=== PATIENT | female | born 1940 | race Caucasian/White ===

== ENCOUNTER → 2017-11-22 11:53 | Outpatient (CLI) | payer MEDICARE, OTHER, SELFPAY ==
--- NOTE | 2017-11-22 | DI.MG.S_ITS ---
BILATERAL DIGITAL SCREENING MAMMOGRAM 3D/2D WITH CAD: 11/22/2017 CLINICAL: Routine screening. Comparison is made to exams dated: 11/20/2016 mammogram, 11/19/2015 mammogram, and 11/05/2014 mammogram - [facility]. There are scattered fibroglandular elements in both breasts. Current study was also evaluated with a Computer Aided Detection (CAD) system. No significant masses, calcifications, or other findings are seen in either breast. There has been no significant interval change. IMPRESSION: NEGATIVE There is no mammographic evidence of malignancy. A 1 year screening mammogram is recommended. This exam was interpreted at Station ID: [id number]. NOTE: For mammograms, a report in lay terms will be sent to the patient. Approximately 15% of breast malignancies will not be visualized mammographically. In the management of a palpable breast mass, a negative mammogram must not discourage biopsy of a clinically suspicious lesion. Electronically Signed By: Kevin christie/penkatiana:11/23/2017 02:43:53 letter sent: Normal Exam ACR BI-RADS Category 1: Negative 3341F
== END ==
PROVIDERS: Family Provider Family Medicine; PCP Family Medicine; Visit Provider Family Medicine
DX: Z12.31 Encounter for screening mammogram for malignant neoplasm of breast (principal)
CPT/HCPCS: 77063; 77067

== ENCOUNTER → 2018-08-12 13:53 | Outpatient (CLI) | payer MEDICARE, OTHER, SELFPAY ==
[2018-08-12 16:27] LABS: Blood Urea Nitrogen 19 mg/dL (7-17); Calcium 9.6 mg/dL (8.4-10.2); Carbon Dioxide 29 mmol/L (22-32); Chloride 103 mmol/L (98-107); Estimated Glomerular Filt Rate 53.6 mL/min (>60); Glucose 108 mg/dL (80-110); HEMOLYSIS < 15 (0-50); Potassium 5.4 mmol/L (3.4-5.1); Sodium 139 mmol/L (137-145)
[2018-08-12 16:31] LABS: Creatinine Urine Random 74.9 mg/dL
[2018-08-12 16:36] LABS: Microalbumin Urine Random < 0.6 mg/dL (0-1.6)
== END ==
PROVIDERS: PCP Family Medicine; Visit Provider Family Medicine
DX: I10 Essential (primary) hypertension (principal)
CPT/HCPCS: 36415; 80048; 82043; 82570

== ENCOUNTER → 2018-10-21 12:13 | Outpatient (CLI) | payer MEDICARE, OTHER, SELFPAY ==
[2018-10-21 12:48] LABS: Hemoglobin A1C% w Est Avg Glu 5.6 % (4.0-6.0)
== END ==
PROVIDERS: PCP Family Medicine; Visit Provider Family Medicine
DX: Z13.1 Encounter for screening for diabetes mellitus (principal)
CPT/HCPCS: 36415; 83036

== ENCOUNTER → 2018-11-18 13:04 | Outpatient (CLI) | payer MEDICARE, OTHER, SELFPAY | PROVIDERS: PCP Family Medicine; Visit Provider Family Medicine | DX: M85.852 Other specified disorders of bone density and structure, left thigh (principal); Z78.0 Asymptomatic menopausal state; I34.0 Nonrheumatic mitral (valve) insufficiency | CPT/HCPCS: 77080 ==

== ENCOUNTER → 2018-11-25 13:23 | Outpatient (CLI) | payer MEDICARE, OTHER, SELFPAY ==
--- NOTE | 2018-11-25 | DI.MG.S_ITS ---
BILATERAL DIGITAL SCREENING MAMMOGRAM 3D/2D WITH CAD: 11/25/2018 CLINICAL: Routine screening. Comparison is made to exams dated: 11/22/2017 mammogram, 11/20/2016 mammogram, and 11/19/2015 mammogram - [facility]. There are scattered fibroglandular elements in both breasts. Current study was also evaluated with a Computer Aided Detection (CAD) system. No significant masses, calcifications, or other findings are seen in either breast. There has been no significant interval change. IMPRESSION: NEGATIVE There is no mammographic evidence of malignancy. A 1 year screening mammogram is recommended. This exam was interpreted at Station ID: [id number]. NOTE: For mammograms, a report in lay terms will be sent to the patient. Approximately 15% of breast malignancies will not be visualized mammographically. In the management of a palpable breast mass, a negative mammogram must not discourage biopsy of a clinically suspicious lesion. Electronically Signed By: Ramón hagen/ronak:11/26/2018 07:49:45 letter sent: Normal Exam ACR BI-RADS Category 1: Negative 3341F
== END ==
PROVIDERS: PCP Family Medicine; Visit Provider Family Medicine
DX: Z12.31 Encounter for screening mammogram for malignant neoplasm of breast (principal)
CPT/HCPCS: 77063; 77067

== ENCOUNTER → 2018-12-12 09:10 | Outpatient (CLI) | payer MEDICARE, OTHER, SELFPAY ==
--- NOTE | 2018-12-12 | DI.MRI.S_ITS ---
PROCEDURE: MR LUMBAR SPINE WO CON INDICATIONS: Lumbago with sciatica TECHNIQUE: Noncontrast sagittal T1 spin echo and T2 fast echo, sagittal STIR, axial T1 and T2 fast spin echo through the lumbar spine. In cases with scoliosis, additional coronal T2 fast spin echo may be performed. COMPARISON: [facility], , L-SPINE WITHOUT CONTRAST, 04/28/2008, 12:45. FINDINGS: Image quality: Excellent. Alignment and Curvature: Dextroscoliosis. Grade 1 anterolisthesis of L4 on L5. Bone Marrow: No acute fracture. Multilevel degenerative endplate sclerosis and spurring. Diffuse facet arthropathy. Spinal Cord: Conus medullaris terminates at the L1-L2 level. Visualized cord demonstrates normal signal and size. Paraspinous Soft Tissues: Presumed T2 hyperintense left renal cyst L1-L2: No central canal narrowing. Lateral recess appear grossly patent. Moderate left foraminal narrowing. Mild right foraminal narrowing, with no interval change. L2-L3: This is canal narrowing. Lateral recesses appear patent. Mild right and left foraminal narrowing, no interval change L3-L4: No central canal stenosis. Partial effacement of both lateral recesses with bilaterally symmetric appearance. Severe left foraminal stenosis with nerve root compression, which appears progressed since prior study. Mild right foraminal narrowing, unchanged L4-L5: Moderate central canal narrowing. Partial effacement of both lateral recesses with asymmetric appearance, right greater than left. Severe right foraminal stenosis. Moderate left foraminal stenosis with nerve root compression on both sides. This appears progressed on both sides since prior study L5-S1: No central canal narrowing. Lateral recesses appear patent. Mild left foraminal narrowing. Severe right foraminal stenosis with nerve root compression, slightly progressed since prior study IMPRESSION: Multilevel lumbar spondylosis and facet arthropathy which has progressed since prior study as above. Moderate L4-L5 canal narrowing and asymmetric right greater than left subarticular stenoses. Severe right L4-L5 and moderate L4-L5 foraminal narrowing, increased since prior study. Severe right L5-S1 foraminal stenosis. Severe left L3-L4 foraminal stenosis. Dextroscoliosis. Dictated by: Vinny Gomez M.D. on 12/12/2018 at 13:40 Approved by: Vinny Gomez M.D. on 12/12/2018 at 13:48
--- NOTE | 2018-12-12 09:18 | DI.ECHO.S_ITS ---
[facility]+ [facility] +---------+ : : [address] : : : : [id number] : : : : Phone: [phone]+ Echocardiogram Report + + :Name: FABIENNE CURTIS Study Date: 12/12/2018 Height: 67 in : :[facility] Exam Location: IS Weight: 155 lb : : Gender: Female BSA: 1.8 m2 : :: 1940 Age: 78 yrs BP: 154/88 mmHg: :Reason For Study: MR : : Performed By: Yusef Galarza : :Referring: MONSERRAT GUTIERREZ : + + Interpretation Summary There is trace mitral regurgitation. The left ventricle is normal in size. There is normal left ventricular wall thickness. There are no focal wall motion abnormalities. Diastolic parameters suggest a relaxation abnormality of the left ventricle, consistent with probable normal filling pressures. The right ventricle is normal in size and function. The right ventricular systolic pressure is estimated to be at least 38 mmHg based on an estimated right atrial pressure of 3 mm Hg. Compared to the prior echocardiogram mitral regurgitation has improved and is only trivial. Procedure: A two-dimensional transthoracic echocardiogram with color flow and Doppler was performed. The study quality was technically adequate. Comparison is made with the echocardiogram of 02/14/16. The patient was in normal sinus rhythm during the exam. Left Ventricle: The left ventricle is normal in size. There is normal left ventricular wall thickness. The ejection fraction is estimated to be 60-65%. The left ventricular ejection fraction is normal. There are no focal wall motion abnormalities. Diastolic parameters suggest a relaxation abnormality of the left ventricle, consistent with probable normal filling pressures. Right Ventricle: The right ventricle is normal in size and function. Atria: The left atrium is mildly dilated. Right atrial size is normal. There is no Doppler evidence for an interatrial shunt. Mitral Valve: The mitral valve is normal in structure and function. There is trace mitral regurgitation. Aortic Valve: The aortic valve is trileaflet. The aortic valve opens well. There is trace aortic regurgitation. Tricuspid Valve: The tricuspid valve is normal in structure and function. There is trace tricuspid regurgitation. The right ventricular systolic pressure is estimated to be at least 38 mmHg based on an estimated right atrial pressure of 3 mm Hg. Pulmonic Valve: The pulmonic valve is normal in structure and function. There is trace pulmonic regurgitation. Great Vessels: The aortic root is normal size. The dimensions of the ascending aorta are normal. The pulmonary artery is normal size. The IVC is of normal diameter and collapses greater than 50% with a sniff. This suggests a low right atrial pressure of 3 mm Hg. Pericardium/ Pleura There is no pericardial effusion. There is no pleural effusion. MMode/2D Measurements & Calculations LVIDd: 3.9 cm LVOT diam: 2.0 cm LVIDs: 2.5 cm Ao root diam: 3.2 cm FS: 36.7 % Aortic Jxn: 2.6 cm EPSS: 0.63 cm asc Aorta Diam: 3.3 cm IVSd: 0.84 cm Ao Arch Diam (Prox Trans): 2.6 cm LVPWd: 0.75 cm LV vilchis. diameter/BSA (cm/m^2): 2.1 LV sys. diameter/BSA (cm/m^2): 1.4 LA dimension: 2.9 cm RA long axis: 5.0 cm LA A2 area: 22.8 cm2 RA area: 17.2 cm2 LA A4 area: 20.8 cm2 RA vol: 50.5 ml LA length (vol): 6.0 cm RA : 27.8 ml/m2 LA vol: 66.8 ml IVC diam: 1.1 cm LA vol index: 36.8 ml/m2 RVD1 (basal): 3.6 cm RVD2 (mid): 3.5 cm Doppler Measurements & Calculations Ao V2 max: 161.8 cm/sec LVOT Max Leeroy: 121.2 cm/sec Ao V2 mean: 114.4 cm/sec LV V1 max P.9 mmHg Ao max P.5 mmHg LV V1 VTI: 28.6 cm Ao mean P.7 mmHg SWATI(I,D): 2.4 cm2 Ao V2 VTI: 38.1 cm SWATI(V,D): 2.4 cm2 sev ratio: 0.75 SWATI indexed to BSA (cm^2/m^2): 1.3 MV E max leeroy: 77.6 cm/sec TR max leeroy: 295.3 cm/sec MV A max leeroy: 110.1 cm/sec TR max P.9 mmHg MV E/A: 0.70 PA V2 max: 93.7 cm/sec Med Peak E' Leeroy: 4.7 cm/sec PA V2 mean: 64.9 cm/sec E/E' med: 16.3 PA mean P.9 mmHg Lat Peak E' Leeroy: 9.2 cm/sec PA pr(Accel): 31.6 mmHg E/E' lat: 8.5 PA Accel Time: 0.09 sec E/e' average: 12.4 MV dec time: 0.20 sec SV(LVOT): 91.0 ml Electronically signed by: Ag Chowdary M.D. on Reading Physician:12/12/2018 06:07 PM
== END ==
PROVIDERS: Family Provider Physical Medicine & Rehabilitation Pain Medicine; PCP Family Medicine; Visit Provider Family Medicine
DX: I34.0 Nonrheumatic mitral (valve) insufficiency (principal); M54.5 Low back pain; M47.26 Other spondylosis with radiculopathy, lumbar region; M48.061 Spinal stenosis, lumbar region without neurogenic claudication; M41.9 Scoliosis, unspecified
CPT/HCPCS: 72148; 93306

== ENCOUNTER → 2019-11-19 09:15 | Outpatient (CLI) | payer MEDICARE, OTHER, SELFPAY ==
[2019-11-19 10:46] LABS: Alanine Aminotransferase 13 IU/L (<35); Albumin 4.1 g/dL (3.5-5.0); Albumin Globulin Ratio 1.6 (1.0-2.8); Alkaline Phosphatase 87 U/L (38-126); Aspartate Aminotransferase 17 IU/L (14-36); BUN Creatinine Ratio 23.3 (6-22); Bilirubin Total 1.1 mg/dL (0.2-1.3); Blood Urea Nitrogen 24 mg/dL (7-17); Calcium 9.2 mg/dL (8.4-10.2); Carbon Dioxide 28 mmol/L (22-32); Chloride 105 mmol/L (98-107); Cholesterol 177 mg/dL (140-199); Estimated Glomerular Filt Rate 51.7 mL/min (>60); Globulin 2.6 g/dL (1.7-4.1); Glucose 95 mg/dL (80-110); HDL Cholesterol 82 mg/dL (40-60); HEMOLYSIS < 15 (0-50); LDL Cholesterol Calculated 78 mg/dL (<100); Potassium 4.6 mmol/L (3.4-5.1); Sodium 138 mmol/L (137-145); Total Protein 6.7 g/dL (6.3-8.2); Triglycerides 87 mg/dL (35-150)
[2019-11-20 04:58] LABS: Creatinine Urine Random 63.5 mg/dL
[2019-11-20 05:46] LABS: Microalbumin Urine Random < 0.6 mg/dL (0-1.6)
== END ==
PROVIDERS: Family Provider Physical Medicine & Rehabilitation Pain Medicine; PCP Family Medicine; Referring Provider Family Medicine; Visit Provider Family Medicine
DX: I10 Essential (primary) hypertension (principal)
CPT/HCPCS: 36415; 80053; 80061; 82043; 82570

== ENCOUNTER → 2019-11-27 08:03 | Outpatient (CLI) | payer MEDICARE, OTHER, SELFPAY ==
--- NOTE | 2019-11-27 | DI.MG.S_ITS ---
BILATERAL DIGITAL SCREENING MAMMOGRAM 3D/2D WITH CAD: 11/27/2019 CLINICAL: Routine screening. Comparison is made to exams dated: 11/25/2018 mammogram, 11/22/2017 mammogram, and 11/20/2016 mammogram - [facility]. There are scattered fibroglandular elements in both breasts. Current study was also evaluated with a Computer Aided Detection (CAD) system. No significant masses, calcifications, or other findings are seen in either breast. There has been no significant interval change. IMPRESSION: NEGATIVE There is no mammographic evidence of malignancy. A 1 year screening mammogram is recommended. This exam was interpreted at Station ID: [id number]. NOTE: For mammograms, a report in lay terms will be sent to the patient. Approximately 15% of breast malignancies will not be visualized mammographically. In the management of a palpable breast mass, a negative mammogram must not discourage biopsy of a clinically suspicious lesion. Electronically Signed By: Toni Groves M.D., jr/ronak:11/27/2019 08:57:14 letter sent: Normal Exam ACR BI-RADS Category 1: Negative 3341F
== END ==
PROVIDERS: Family Provider Physical Medicine & Rehabilitation Pain Medicine; PCP Family Medicine; Referring Provider Family Medicine; Visit Provider Family Medicine
DX: Z12.31 Encounter for screening mammogram for malignant neoplasm of breast (principal)
CPT/HCPCS: 77063; 77067

== ENCOUNTER → 2020-05-22 09:50 | Outpatient (CLI) | payer MEDICARE, OTHER, SELFPAY ==
[2020-05-22 11:42] LABS: COVID19 -Nasal RAPID Negative (Negative)
== END ==
PROVIDERS: Family Provider Physical Medicine & Rehabilitation Pain Medicine; PCP Family Medicine; Visit Provider Nurse Practitioner
DX: Z20.822 Contact with and (suspected) exposure to COVID-19 (principal)
CPT/HCPCS: 87635; C9803

== ENCOUNTER → 2020-11-22 11:57 | Outpatient (CLI) | payer MEDICARE, OTHER, SELFPAY ==
[2020-11-22 14:44] LABS: Alanine Aminotransferase 13 IU/L (<35); Albumin 4.3 g/dL (3.5-5.0); Albumin Globulin Ratio 1.7 (1.0-2.8); Alkaline Phosphatase 89 U/L (38-126); Aspartate Aminotransferase 18 IU/L (14-36); BUN Creatinine Ratio 22.1 (6-22); Bilirubin Total 1.1 mg/dL (0.2-1.3); Blood Urea Nitrogen 21 mg/dL (7-17); Calcium 9.3 mg/dL (8.4-10.2); Carbon Dioxide 23 mmol/L (22-32); Chloride 105 mmol/L (98-107); Estimated Glomerular Filt Rate 56.6 mL/min (>60); Globulin 2.6 g/dL (1.7-4.1); Glucose 133 mg/dL (80-110); HEMOLYSIS < 15 (0-50); Potassium 4.3 mmol/L (3.4-5.1); Sodium 138 mmol/L (137-145); Total Protein 6.9 g/dL (6.3-8.2)
[2020-11-22 15:56] LABS: Microalbumi Creatinin Ratio Ur 10.4 ug/mg CR (<30)
== END ==
PROVIDERS: Family Provider Physical Medicine & Rehabilitation Pain Medicine; PCP Family Medicine; Referring Provider Family Medicine; Visit Provider Family Medicine
DX: I10 Essential (primary) hypertension (principal)
CPT/HCPCS: 36415; 80053; 82043; 82570

== ENCOUNTER → 2021-01-26 11:33 | Outpatient (CLI) | payer MEDICARE, OTHER, SELFPAY ==
--- NOTE | 2021-01-26 11:36 | DI.MRI.S_ITS ---
PROCEDURE: MR CERVICAL SPINE WO CON INDICATIONS: Cervicalgia TECHNIQUE: Noncontrast sagittal T1 spin echo and T2 fast spin echo, sagittal STIR, foraminal oblique sagittal T2 fast spin echo, and axial gradient echo or T2 fast spin echo through the cervical spine. COMPARISON: None. FINDINGS: Image quality: Excellent. Alignment and Curvature: Straightening of the normal lordotic curvature. Bone Marrow: No acute fracture identified. Scattered degenerative subchondral sclerosis and spurring. Chronic osseous fusion of the C3-C4 and C5-C6 vertebral bodies. Grade 1 anterolisthesis of C2 on C3, and T1 on T2. Spinal Cord: Visualized spinal cord has normal size and signal. No cerebellar tonsillar herniation. Paraspinous Soft Tissues: No paravertebral masses. Prevertebral soft tissues are normal in thickness. C2-C3: Moderate canal narrowing. Severe right foraminal stenosis with nerve root compression. Moderate left foraminal stenosis, with slight nerve root compression C3-C4: Mild canal narrowing. Mild left foraminal stenosis. Moderate right foraminal narrowing with nerve root compression. C4-C5: Mild canal narrowing. Severe bilateral foraminal stenosis with nerve root compression on both sides. C5-C6: Mild canal narrowing. Severe bilateral foraminal stenoses with nerve root compression on both sides. C6-C7: Moderate canal narrowing. Severe bilateral foraminal stenoses with nerve root compression on both sides. C7-T1: Mild canal narrowing. Severe left foraminal stenosis with nerve root compression. Mild to moderate right foraminal narrowing. 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 Moderate canal stenosis at C2-C3 and C6-C7. Numerous, bilateral severe foraminal stenosis as detailed above by spinal level. Straightening of the normal lordotic curvature. Multilevel spondylolisthesis as above. Dictated by: Vinny Gomez M.D. on 01/26/2021 at 12:33 Approved by: Vinny Gomez M.D. on 01/26/2021 at 12:38
== END ==
PROVIDERS: Family Provider Physical Medicine & Rehabilitation Pain Medicine; PCP Family Medicine; Referring Provider Physical Medicine & Rehabilitation Pain Medicine; Visit Provider Physical Medicine & Rehabilitation Pain Medicine
DX: M54.2 Cervicalgia (principal); M47.812 Spondylosis without myelopathy or radiculopathy, cervical region; M48.02 Spinal stenosis, cervical region; M43.22 Fusion of spine, cervical region; M43.12 Spondylolisthesis, cervical region
CPT/HCPCS: 72141

== ENCOUNTER → 2021-11-28 10:39 | Outpatient (CLI) | payer MEDICARE, OTHER, SELFPAY ==
[2021-11-28 13:42] LABS: Cholesterol 203 mg/dL (140-199); HDL Cholesterol 73 mg/dL (40-60); LDL Cholesterol Calculated 111 mg/dL (<100); Triglycerides 93 mg/dL (35-150)
[2021-11-28 14:59] LABS: Creatinine Urine Random 62.1 mg/dL
[2021-11-28 15:00] LABS: Microalbumi Creatinin Ratio Ur 33.8 ug/mg CR (<30); Microalbumin Urine Random 2.1 mg/dL (0-1.6)
== END ==
PROVIDERS: Family Provider Physical Medicine & Rehabilitation Pain Medicine; PCP Family Medicine; Referring Provider Family Medicine; Visit Provider Family Medicine
DX: I10 Essential (primary) hypertension (principal)
CPT/HCPCS: 36415; 80061; 82043; 82570

== ENCOUNTER → 2022-02-09 10:49 | Outpatient (CLI) | payer MEDICARE, OTHER, SELFPAY ==
[2022-02-09 11:48] LABS: COVID19 -Nasal RAPID Negative (Negative)
== END ==
PROVIDERS: Family Provider Physical Medicine & Rehabilitation Pain Medicine; PCP Family Medicine; Visit Provider Surgery
DX: Z20.822 Contact with and (suspected) exposure to COVID-19 (principal); Z01.812 Encounter for preprocedural laboratory examination
CPT/HCPCS: 87635; C9803

== ENCOUNTER 2022-02-10 06:36 | Day surgery (SDC) | payer MEDICARE, OTHER, SELFPAY ==
--- NOTE | 2022-02-10 | PATH_ITS ---
[facility] Accession Number: [id number] . 01 Material submitted: . colon - RANDOM COLON BIOPSIES . 01 Diagnosis: Random Colon, Biopsies: Colonic mucosa with no diagnostic abnormality. Negative for active, chronic, and microscopic colitis. Negative for dysplasia and malignancy. . JNL 02/13/2022 2040 Local . 01 Electronically signed: . Ania Wadsworth MD, Pathologist NPI- [id number] . 01 Gross description: . RANDOM COLON BIOPSIES: Received in formalin are multiple fragment(s) of allen, soft tissue measuring 0.1 x 0.1 x 0.1 cm to 0.3 x 0.2 x 0.2 cm submitted entirely in 1 cassette(s) /SARITHA 02/11/2022 0021 Local . 01 Pathologist provided ICD-10: Z12.11 . 01 CPT . 336714 Specimen Comment: A courtesy copy of this report has been sent to [facility] Performed at: 01 [facility] [address] [place] [address] [address], [place], [place] [id number] MD Ramón Ann MD Phone: [phone]
[2022-02-10] MEDS: LACTATED RINGERS 1,000 ML 42 ML IV (07:11)
[2022-02-10 07:24] VITALS: BP 184/96; PULSE 95; RESP 16; TEMP 36.2; O2SAT 100; BMI 23.8
--- NOTE | 2022-02-10 07:56 | PM.PREOP ---
Pre-operative Note COVID-19 COVID-19 status: Negative Interval Note History & Physical reviewed/Exam performed by Physician: Yes Changes to H&P: No H&P completed within 30 days and has changed as indicated here:: prep with debris. some improvement on fiber once daily. Still concerned about diarrhea with the tiny hard balls of stool on occasion.
[2022-02-10 08:48] VITALS: BP 146/77; PULSE 69; RESP 13; TEMP 36.5; O2SAT 96
[2022-02-10 08:53] VITALS: BP 152/79; PULSE 69; RESP 17; O2SAT 97
--- NOTE | 2022-02-10 08:58 | PM.OP.COLON ---
Procedure & Clinicians Study performed: colonoscopy Same procedure as scheduled: Yes Indications: chronic diarrhea, screening. Surgeon: Anusha Ace Procedure Notes Procedure in detail: Patient was taken to the endoscopy suite placed in left lateral decubitus position. A time-out was performed. Monitored anesthetic care was administered. A digital rectal exam was performed. There were external hemorrhoids seen. The colonoscope was introduced into the anal canal and advanced through to the cecum. A photograph was taken of the appendiceal orifice. A few random biopsies of the cecum were taken. Few more random biopsies of the ascending transverse and sigmoid colon were obtained and sent in the same specimen jar for analysis. No polyps were seen and the mucosa looked normal. There were scattered diverticula throughout the sigmoid colon. There were no complications and the patient went in good condition to postoperative care unit. Her follow-up for screening can be in 10 years however by then she probably will not need screening but I always assess each individual a uniquely for their need for screening and this recommendation is not based only on age.
[2022-02-10 09:00] VITALS: PULSE 77; RESP 20; O2SAT 99
[2022-02-10 09:09] VITALS: BP 142/91; PULSE 72; RESP 18; O2SAT 96
== END 2022-02-10 09:15 | disposition home or self-care (01) ==
PROVIDERS: Family Provider Physical Medicine & Rehabilitation Pain Medicine; PCP Family Medicine; Referring Provider Surgery; Visit Provider Surgery
PROC: 0DJD8ZZ Inspection of Lower Intestinal Tract, Via Natural or Artificial Opening Endoscopic (ICD-10-PCS; CPT 45378; principal; 2022-02-10 07:45)
DX: R19.7 Diarrhea, unspecified (principal); K57.30 Diverticulosis of large intestine without perforation or abscess without bleeding
CPT/HCPCS: 45380; J2704

== ENCOUNTER → 2022-02-22 15:53 | Outpatient (CLI) | payer MEDICARE, OTHER, SELFPAY | PROVIDERS: Family Provider Physical Medicine & Rehabilitation Pain Medicine; PCP Family Medicine; Visit Provider Nurse Practitioner Family | DX: R30.0 Dysuria (principal) | CPT/HCPCS: 87077; 87086; 87186 ==

== ENCOUNTER → 2022-12-05 09:16 | Outpatient (CLI) | payer MEDICARE, OTHER, SELFPAY ==
[2022-12-05 11:13] LABS: Alanine Aminotransferase 15 IU/L (<35); Albumin 4.2 g/dL (3.5-5.0); Albumin Globulin Ratio 1.6 (1.0-2.8); Alkaline Phosphatase 89 U/L (38-126); Aspartate Aminotransferase 16 IU/L (14-36); BUN Creatinine Ratio 20.7 (6-22); Bilirubin Total 1.5 mg/dL (0.2-1.3); Blood Urea Nitrogen 23 mg/dL (7-17); Calcium 9.5 mg/dL (8.4-10.2); Carbon Dioxide 25 mmol/L (22-32); Chloride 104 mmol/L (98-107); Estimated Glomerular Filt Rate 50 mL/min (>60); Globulin 2.6 g/dL (1.7-4.1); Glucose 104 mg/dL (80-110); HEMOLYSIS < 15 (0-50); Potassium 4.3 mmol/L (3.4-5.1); Sodium 138 mmol/L (137-145); Total Protein 6.8 g/dL (6.3-8.2)
[2022-12-05 16:04] LABS: Creatinine Urine Random 80.3 mg/dL
[2022-12-05 16:08] LABS: Microalbumi Creatinin Ratio Ur 11.2 ug/mg CR (<30); Microalbumin Urine Random 0.9 mg/dL (0-1.6)
== END ==
PROVIDERS: Family Provider Physical Medicine & Rehabilitation Pain Medicine; PCP Family Medicine; Referring Provider Family Medicine; Visit Provider Family Medicine
DX: I10 Essential (primary) hypertension (principal)
CPT/HCPCS: 36415; 80053; 82043; 82570

== ENCOUNTER → 2023-01-02 08:25 | Outpatient (CLI) | payer MEDICARE, OTHER, SELFPAY ==
[2023-01-02 09:15] LABS: BUN Creatinine Ratio 19.6 (6-22); Blood Urea Nitrogen 19 mg/dL (7-17); Calcium 9.2 mg/dL (8.4-10.2); Carbon Dioxide 25 mmol/L (22-32); Chloride 105 mmol/L (98-107); Cholesterol 192 mg/dL (140-199); Estimated Glomerular Filt Rate 58 mL/min (>60); Glucose 104 mg/dL (80-110); HDL Cholesterol 76 mg/dL (40-60); HEMOLYSIS < 15 (0-50); LDL Cholesterol Calculated 92 mg/dL (<100); Potassium 3.9 mmol/L (3.4-5.1); Sodium 138 mmol/L (137-145); Triglycerides 118 mg/dL (35-150)
== END ==
PROVIDERS: Family Provider Physical Medicine & Rehabilitation Pain Medicine; PCP Family Medicine; Referring Provider Family Medicine; Visit Provider Family Medicine
DX: E78.5 Hyperlipidemia, unspecified (principal); I10 Essential (primary) hypertension; R79.9 Abnormal finding of blood chemistry, unspecified
CPT/HCPCS: 36415; 80048; 80061

== ENCOUNTER 2023-07-15 09:51 | Emergency (ER) | payer MEDICARE, OTHER, SELFPAY ==
[2023-07-15] VITALS (22 sets, daily range): BP systolic 134–197; BP diastolic 75–108; PULSE 73–154; RESP 11–32; TEMP 37; O2SAT 96–100; BMI 25.0
--- NOTE | 2023-07-15 09:52 | DI.RAD.S_ITS ---
PROCEDURE: XR CHEST 1V INDICATIONS: chest pain TECHNIQUE: One view of the chest was acquired. COMPARISON: [facility], , CHEST 2 VIEW, 12/12/2006, 11:21. FINDINGS: Surgical changes and devices: None. Lungs and pleura: Lungs are clear. No pleural effusions or pneumothorax. Mediastinum: Mediastinal contours appear normal. Heart size is normal. Bones and chest wall: No suspicious bony lesions. Overlying soft tissues appear unremarkable. IMPRESSION: No acute cardiopulmonary abnormality is seen. Approved by: Lj Brown M.D. on 07/15/2023 at 10:32
--- NOTE | 2023-07-15 09:58 | PC.NURSE ---
This RN attempted to get patient in for triage but patient is in public restroom. This RN knocked on door and patient states I dont need assistance.
--- NOTE | 2023-07-15 10:10 | ED_ITS ---
HPI - Arrhythmia/Palpitations General Chief Complaint: Arrhythmia/Palpitations Stated Complaint: fluttering heart Time Seen by Provider: 07/15/23 10:07 History of Present Illness HPI narrative: Patient is an 82-year-old female who presents today with heart palpitations. She reports that she sometimes has palpitations it has been worked up in the past never found to have any significant arrhythmia. However today she says it has definitely picked up and she feels it fluttering and going very fast she is noted to have be in AFib with RVR heart rate in the 150s. She denies any sort of shortness of breath dizziness or lightheadedness. She has not had any illness. Related Data Home Medications Medication Instructions Recorded Confirmed hydrocortisone 1 % topical cream 1 applic topical DAILY 02/10/22 12/05/22 (Hydrocream) triamcinolone acetonide 0.1 % 1 ranjan topical BID PRN Skin 02/10/22 12/05/22 topical cream Cleansing Previous Rx's Medication Instructions Recorded cholestyramine (with sugar) 4 gram See Rx Instructions .Route 06/23/22 oral powder .COMPLEX #737.52 grams amlodipine 5 mg tablet 5 mg PO DAILY #90 tabs 02/12/23 meloxicam 15 mg tablet 15 mg PO DAILY #90 tabs 05/09/23 apixaban 5 mg tablet (Eliquis) 5 mg PO BID #60 tabs 07/15/23 Allergies Allergy/AdvReac Type Severity Reaction Status Date / Time atenolol [ATENOLOL] Allergy Severe bradycardia Verified 12/05/22 08:45 codeine [CODEINE] Allergy Severe mood change Verified 12/05/22 08:45 sertraline [From ZOLOFT] Allergy Severe vertigo Verified 12/05/22 08:45 venlafaxine [From EFFEXOR] Allergy Severe vertigo Verified 12/05/22 08:45 adhesive tape [ADHESIVE TAPE] Allergy Unknown rash Verified 12/05/22 08:45 Patient History Medical History Family history of early CAD Family history of type 2 diabetes mellitus Beta-blockers contraindicated due to bradycardia Hypertension Chronic diarrhea Pseudomonas aeruginosa infection (2017) Ventricular premature beats (01/27/16) Mitral valve insufficiency (02/24/16) Cholelithiasis and cholecystitis without obstruction Family History Father Myocardial infarct Brother Diabetes mellitus Hx of CABG Brother Diabetes mellitus Grandmother Breast cancer Mother Bladder cancer Social History marital status: number of children: 3 household members: spouse lives independently: Yes caregiver/support person: No housing: house Smoking Status: Never smoker second hand exposure: No alcohol intake: current substance use type: does not use Smoking Status: Never smoker alcohol intake frequency: a few times a month Substance Use Type: does not use Exam Initial Vital Signs Initial Vital Signs: Vital Signs Pulse Rate 153 H 07/15/23 10:06 GENERAL: Alert pleasant well-appearing 82-year-old female HEENT: Head atraumatic,EOMI, pupils reactive, face symmetric, [moist] mucous membranes CARDIOVASCULAR: Tachycardic regular no murmur RESPIRATORY: Breath sounds equal bilaterally, no wheezes rales or rhonchi. ABDOMEN: Soft, nontender. Normoactive bowel sounds all 4 quadrants. No guarding or rebound. EXTREMITIES: Normal range of motion, no clubbing or edema. Neurovascularly intact NEUROLOGICAL: Alert and oriented x4.Normal gait and speech. Cranial nerves II through XII grossly intact. SKIN: Warm, dry, no laceration, no petechiae, no rashes or lesions. Procedures Cardioversion Consent Signed: Yes Indication: New onset AFib with RVR Stability: Stable Number of attempts (shocks): 1 Joules used: 120 Cardiac rhythm post-cardioversion: NSR Procedural Sedation Consent signed: Yes Indication: cardioversion ASA Class: II Mallampati Airway Classification: Class II IV Propofol dose (mg): 50 Intraservice time/total sedation time (min): 13 ED Sedation Level: Moderate (Concious) Patient Tolerated Procedure: Well Complications: hypoventilation Interventions: Airway repositioned and Assist by BVM Scores CHADS-VASc Congestive heart failure: no Hypertension: yes Age 75 years or older: yes Diabetes mellitus: no Stroke, TIA, or TE: no Vascular disease: no Age 65 to 74 years: no Sex category (female): Female CHADS-VASc Score: 4 Course Orders Ordered: ED Orders 07/15/23 09:52 XR chest 1V Stat EKG-12 Lead Stat 07/15/23 10:10 BNP [NT-proBNP (BNP-Adult 18+)] Stat Complete Blood Count AUTO DIFF Stat Comprehensive Metabolic Panel Stat Lipase Stat Magnesium Stat PTT Partial Thromboplastin Messi Stat Prothrombin Time INR Stat TSH [Thyroid Stimulating Hormone] Stat Troponin & CK Cardiac Panel Stat Discontinued Medications Apixaban (Apixaban 5 Mg Tablet) 5 mg PO NOW ONE Stop: 07/15/23 12:19 Last Admin: 07/15/23 12:46 Dose: 5 mg Documented By: RL Diltiazem HCl (Diltiazem 5 Mg/Ml Sdv) 10 mg IV NOW ONE Stop: 07/15/23 10:12 Last Admin: 07/15/23 10:21 Dose: 10 mg Documented By: RB Diltiazem HCl (Diltiazem 5 Mg/Ml Sdv) 10 mg IV NOW ONE Stop: 07/15/23 11:01 Last Admin: 07/15/23 11:20 Dose: 10 mg Documented By: RL Sodium Chloride (Normal Saline 0.9%) 1,000 mls @ 1,000 mls/hr IV BOLUS ONE Stop: 07/15/23 14:06 Last Admin: 07/15/23 13:08 Dose: Not Given Documented By: MARINA Propofol (Propofol 200 Mg/20 Ml Vial) 75 mg 1 mg/kg (75 mg) IV NOW ONE Stop: 07/15/23 11:01 Last Admin: 07/15/23 11:29 Dose: 50 mg Documented By: COLTON Vital Signs Vital signs: Vital Signs - 8 hr 07/15/23 10:06 07/15/23 10:07 07/15/23 10:07 Temperature Pulse Rate 153 H 151 H Respiratory Rate 18 Blood Pressure 197/108 H Pulse Oximetry 99 Oxygen Delivery Method 07/15/23 10:09 07/15/23 10:21 07/15/23 10:30 Temperature 98.6 F Pulse Rate 154 H 154 H 144 H Respiratory Rate 22 16 Blood Pressure 197/108 H 197/101 H Pulse Oximetry 99 99 Oxygen Delivery Method Room Air 07/15/23 10:31 07/15/23 10:31 07/15/23 10:40 Temperature Pulse Rate 143 H 142 H Respiratory Rate 22 12 Blood Pressure 145/75 H Pulse Oximetry 98 99 Oxygen Delivery Method 07/15/23 10:40 07/15/23 10:57 07/15/23 10:57 Temperature Pulse Rate 151 H Respiratory Rate 23 Blood Pressure 158/76 H 159/105 H Pulse Oximetry 96 Oxygen Delivery Method 07/15/23 11:00 07/15/23 11:00 07/15/23 11:10 Temperature Pulse Rate 148 H Respiratory Rate 14 Blood Pressure 149/102 H 149/97 H Pulse Oximetry 98 Oxygen Delivery Method 07/15/23 11:10 07/15/23 11:20 07/15/23 11:30 Temperature Pulse Rate 144 H 152 H 94 H Respiratory Rate 20 16 Blood Pressure 149/97 H Pulse Oximetry 99 100 Oxygen Delivery Method 07/15/23 11:36 07/15/23 11:36 07/15/23 11:40 Temperature Pulse Rate 86 86 Respiratory Rate 14 32 H Blood Pressure 155/88 H Pulse Oximetry 99 99 Oxygen Delivery Method 07/15/23 11:40 07/15/23 11:45 07/15/23 11:45 Temperature Pulse Rate 83 Respiratory Rate 26 H Blood Pressure 159/81 H 134/83 Pulse Oximetry 99 Oxygen Delivery Method 07/15/23 11:50 07/15/23 11:50 07/15/23 11:55 Temperature Pulse Rate 82 Respiratory Rate 15 Blood Pressure 150/83 H 151/83 H Pulse Oximetry 98 Oxygen Delivery Method 07/15/23 11:55 07/15/23 12:00 07/15/23 12:00 Temperature Pulse Rate 82 78 Respiratory Rate 19 11 L Blood Pressure 154/83 H Pulse Oximetry 97 99 Oxygen Delivery Method 07/15/23 12:05 07/15/23 12:05 07/15/23 12:17 Temperature Pulse Rate 80 Respiratory Rate 24 Blood Pressure 156/93 H 166/93 H Pulse Oximetry 99 Oxygen Delivery Method 07/15/23 12:17 07/15/23 12:22 07/15/23 12:22 Temperature Pulse Rate 83 80 Respiratory Rate 20 28 H Blood Pressure 162/92 H Pulse Oximetry Oxygen Delivery Method 07/15/23 12:30 07/15/23 12:30 Temperature Pulse Rate 73 Respiratory Rate 12 Blood Pressure 164/93 H Pulse Oximetry 99 Oxygen Delivery Method Room Air MDM - Arrhythmia/Palpitations Lab Data 07/15/23 10:10 07/15/23 10:10 Labs: Lab Results 07/15/23 Range/Units 10:10 WBC 7.6 (4.5-11.0) X10^3/uL RBC 4.41 (4.0-5.2) X10^6/uL Hgb 13.6 (12.0-16.0) g/dL Hct 40.8 (36-46) % MCV 92.5 (80-100) fL MCH 30.9 (26-34) PG MCHC 33.4 (30-36) % RDW 14.7 (11.6-14.8) % Plt Count 461 H (150-400) X10^3/uL Neut % (Auto) 64.5 (50-75) % Lymph % (Auto) 23.0 L (25-40) % Burnett % (Auto) 9.9 (3-14) % Eos % (Auto) 2.2 (2-4) % Baso % (Auto) 0.4 (0-2) % Neut # (Auto) 4900 (9885-5897) /uL Lymph # (Auto) 1700 (0747-5164) /uL Burnett # (Auto) 700 (0-900) /uL Eos # (Auto) 200 (0-450) /uL Baso # (Auto) 0 (0-100) /uL PT 11.6 (9.4-12.5) SECONDS INR 1.0 (0.9-1.3) APTT 42 H (25.1-36.5) SECONDS Sodium 137 (137-145) mmol/L Potassium 3.3 L (3.4-5.1) mmol/L Chloride 106 (98-107) mmol/L Carbon Dioxide 22 (22-32) mmol/L BUN 20 H (7-17) mg/dL Creatinine 1.01 (0.52-1.04) mg/dL Estimated GFR 56 L (>60) mL/min BUN/Creatinine Ratio 19.8 (6-22) Glucose 135 H (80-110) mg/dL Calcium 9.2 (8.4-10.2) mg/dL Magnesium 2.0 (1.6-2.3) mg/dL Total Bilirubin 1.3 (0.2-1.3) mg/dL AST 17 (14-36) IU/L ALT 13 (<35) IU/L Alkaline Phosphatase 94 (38-126) U/L Total Creatine Kinase 73 (30-135) U/L Troponin I < 0.012 (0.01-0.034) ng/mL NT-Pro-B Natriuret Pep 806 H (<450) pg/mL Total Protein 7.7 (6.3-8.2) g/dL Albumin 4.8 (3.5-5.0) g/dL Globulin 2.9 (1.7-4.1) g/dL Albumin/Globulin Ratio 1.7 (1.0-2.8) Lipase 122 (23-300) U/L TSH 3.09 (0.47-4.68) uIU/mL Point of Care Testing Test Results Not applicable Imaging Data Chest x-ray: Radiologist's Impresson: PROCEDURE: XR CHEST 1V INDICATIONS: chest pain TECHNIQUE: One view of the chest was acquired. COMPARISON: [facility], CHEST 2 VIEW, 12/12/2006, 11:21. FINDINGS: Surgical changes and devices: None. Lungs and pleura: Lungs are clear. No pleural effusions or pneumothorax. Mediastinum: Mediastinal contours appear normal. Heart size is normal. Bones and chest wall: No suspicious bony lesions. Overlying soft tissues appear unremarkable. IMPRESSION: No acute cardiopulmonary abnormality is seen. Approved by: Lj Brown M.D. on 07/15/2023 at 10:32 ECG Data Interpretation: Atrial fibrillation rate [address] changes new from previous EKGs EKG 2. Normal sinus rhythm rate 88 WI interval 178 QRS [address] changes no T-wave inversions PVC noted MDM Narrative Medical decision making narrative: MDM CC: Heart palpitations Complicating co-morbidities: Elderly, hypertension Corroborating data: From family Medical records reviewed: Yes Differential considered: AFib with RVR, atrial flutter with RVR, SVT Exam documented above, pertinent findings include: Tachycardic awake alert nontoxic appropriate Lab Test results independently reviewed as above. Pertinent findings: WBC 7.6, hemoglobin of 13.6, hematocrit 40.8, platelets 461, PT 11.6, INR 1.0, sodium 137, potassium 3.3, chloride 106, carbon dioxide 22, BUN 20, creatinine 1, glucose 135, calcium 9.2, bilirubin 1.3, AST 17, ALT 13, alk-phos 94, troponin negative, BNP 806, TSH 3.0 Independently reviewed EKG as above AFib with RVR with repeat normal sinus rhythm without ischemic changes Imaging studies independently reviewed: No acute cardiopulmonary process Consultations: None Treatments: Diltiazem and cardioversion with propofol, Eliquis Re-evaluations: Feeling much better after cardioversion awake alert remains in normal sinus rhythm Discussion: Patient has had palpitations throughout her life but no known arrhythmia or atrial fibrillation. She has not on any sort of anticoagulation. Initially tried vasovagal maneuver but unsuccessful. She was given diltiazem which she did not quite respond to. She does not have any contraindications to cardioversion it sounds as though she has had some palpitations but it was significantly worse today she has no contraindications to cardioversion she seems to be within the appropriate window for cardioversion. Patient cardioverted, she did require some airway repositioning but quickly recovered. She does have an elevated CHADS-VASc score but is of elderly age. Her has bled score is low will start her on Eliquis. Discussed with her risks and benefits of anticoagulation and when to return to the ED. I further instruct her to follow-up with her PCP. HAS-BLED Score for Major Bleeding Risk from [email or web address] on 07/15/2023 All calculations should be rechecked by clinician prior to use RESULT SUMMARY: 1 points Risk was 3.4% in one validation study (Flo 2011) and 1.02 bleeds per 100 patient-years in another validation study (Pisters 2010). Anticoagulation should be considered: Patient has a relatively low risk for major bleeding (~1/100 patient-years). INPUTS: Hypertension ?> 0 = No Renal disease ?> 0 = No Liver disease ?> 0 = No Stroke history ?> 0 = No Prior major bleeding or predisposition to bleeding ?> 0 = No Labile INR ?> 0 = No Age >65 ?> 1 = Yes Medication usage predisposing to bleeding ?> 0 = No Alcohol use ?> 0 = No Discharge Plan Departure Patient Disposition: Home Clinical Impression: Atrial fibrillation, new onset Instructions: DI for Atrial Fibrillation Activity Restrictions/Additional Instructions: *You have been diagnosed with new onset atrial fibrillation *What to do: At this time you will need to follow-up with Dr. Bowie he will likely need further evaluation you are being started on a medication called Eliquis. You will notice that you bleed a lot more. Be sure to hold pressure and apply ice if you cut herself. If you should fallen hit your head please return to the emergency department or effusion notice any other significant bleeding please come to the ED *Continue to take medications as directed Eliquis 5 mg twice a day Continue all of your other medications Do not take meloxicam, ibuprofen, aspirin, clopidogrel or other NSAIDS You may take Tylenol 650 mg every 6 hours if needed for [id number] *Follow up with your primary care provider in 2-3 days or call [phone] *Return to ER if you should have increase or persistent bleeding chest pain increased heart rate or any new, worsening or concerning symptoms Prescriptions: New Eliquis 5 mg tablet 5 mg PO BID Qty: 60 0RF No Action cholestyramine (with sugar) 4 gram powder See Rx Instructions .ROUTE .COMPLEX Qty: 737.52 1RF Dose Instruction: MIX 1 SCOOPFUL (4 GRAMS) IN LIQUID AND DRINK 2X/DAY WITH MEAL. AVOID OTHER MEDS WITHIN 1 HOUR BEFORE OR 4-6 HOURS AFTER DOSE Rx Instructions: MIX 1 SCOOPFUL (4 GRAMS) IN LIQUID AND DRINK 2X/DAY WITH FOOD. AVOID OTHER MEDS WITHIN 1 HOUR BEFORE OR 4-6 HOURS AFTER DOSE amlodipine 5 mg tablet 5 mg PO DAILY Qty: 90 3RF meloxicam 15 mg tablet 15 mg PO DAILY Qty: 90 3RF hydrocortisone [Hydrocream] 1 % Cream 1 applic topical DAILY triamcinolone acetonide 0.1 % cream 1 ranjan Topical BID PRN (Reason: Skin Cleansing) Referrals: Monae Espinosa MD [Primary Care Provider] - Stand Alone Forms: Patient Portal/API
[2023-07-15 10:19] LABS: Add Manual Diff / Slide Review NO; Basophils Absolute Auto 0 /uL (0-100); Basophils Percent Auto 0.4 % (0-2); Eosinophils Absolute Auto 200 /uL (0-450); Eosinophils Percent Auto 2.2 % (2-4); Hematocrit 40.8 % (36-46); Hemoglobin 13.6 g/dL (12.0-16.0); Lymphocytes Absolute Auto 1700 /uL (1100-4500); Mean Corpuscular HGB Conc 33.4 % (30-36); Mean Corpuscular Hemoglobin 30.9 PG (26-34); Mean Corpuscular Volume 92.5 fL (80-100); Monocytes Absolute Auto 700 /uL (0-900); Monocytes Percent Auto 9.9 % (3-14); Neutrophils Absolute Auto 4900 /uL (1500-7000); Neutrophils Percent Auto 64.5 % (50-75); Platelet Count 461 X10^3/uL (150-400); Red Blood Cell Count 4.41 X10^6/uL (4.0-5.2); Red Cell Distribution Width 14.7 % (11.6-14.8); White Blood Cell Count 7.6 X10^3/uL (4.5-11.0)
[2023-07-15] MEDS: dilTIAZem 5 MG/ML SDV 10 MG IV ×2 (10:21→11:20)
[2023-07-15 10:25] LABS: Prothrombin Time 11.6 SECONDS (9.4-12.5)
[2023-07-15 10:28] LABS: PTT Partial Thromboplastin Tim 42 SECONDS (25.1-36.5)
[2023-07-15 10:30] LABS: Alanine Aminotransferase 13 IU/L (<35); Albumin 4.8 g/dL (3.5-5.0); Albumin Globulin Ratio 1.7 (1.0-2.8); Alkaline Phosphatase 94 U/L (38-126); Aspartate Aminotransferase 17 IU/L (14-36); BUN Creatinine Ratio 19.8 (6-22); Bilirubin Total 1.3 mg/dL (0.2-1.3); Blood Urea Nitrogen 20 mg/dL (7-17); Calcium 9.2 mg/dL (8.4-10.2); Carbon Dioxide 22 mmol/L (22-32); Chloride 106 mmol/L (98-107); Creatine Kinase 73 U/L (30-135); Estimated Glomerular Filt Rate 56 mL/min (>60); Globulin 2.9 g/dL (1.7-4.1); Glucose 135 mg/dL (80-110); HEMOLYSIS < 15 (0-50); Lipase 122 U/L (23-300); Potassium 3.3 mmol/L (3.4-5.1); Sodium 137 mmol/L (137-145); Total Protein 7.7 g/dL (6.3-8.2)
[2023-07-15 10:41] LABS: Troponin I < 0.012 ng/mL (0.01-0.034)
[2023-07-15] MEDS: propofoL 200 MG/20 ML VIAL 75 MG IV (11:29)
[2023-07-15 11:42] LABS: NT-proBNP (BNP-Adult 18+) 806 pg/mL (<450)
[2023-07-15 12:04] LABS: Thyroid Stimulating Hormone 3.09 uIU/mL (0.47-4.68)
[2023-07-15] MEDS: APIXABAN 5 MG TABLET PO (12:46)
== END 2023-07-15 13:14 | disposition home or self-care (01) ==
PROVIDERS: Emergency Provider Emergency Medicine; Family Provider Physical Medicine & Rehabilitation Pain Medicine; PCP Family Medicine
DX: I48.91 Unspecified atrial fibrillation (principal); R07.9 Chest pain, unspecified; Z79.01 Long term (current) use of anticoagulants
CPT/HCPCS: 36415; 71045; 80053; 82550; 83690; 83735; 83880; 84443; 84484; 85025; 85610; 85730; 92960; 93005; 96374; 96376; 99285; J2704

== ENCOUNTER 2023-07-17 16:15 | Emergency (ER) | payer MEDICARE, OTHER, SELFPAY ==
[2023-07-17] VITALS (13 sets, daily range): BP systolic 173–210; BP diastolic 83–97; PULSE 67–78; RESP 13–24; TEMP 36.3–36.7; O2SAT 92–100; BMI 25.0
--- NOTE | 2023-07-17 16:29 | DI.RAD.S_ITS ---
PROCEDURE: XR CHEST 1V INDICATIONS: chest pain TECHNIQUE: One view of the chest was acquired. COMPARISON: [facility], CR, XR CHEST 1V, 07/15/2023, 9:52. FINDINGS: Surgical changes and devices: None. Lungs and pleura: Lungs are clear. No pleural effusions or pneumothorax. Mediastinum: Mediastinal contours appear normal. Heart size is normal. Bones and chest wall: No suspicious bony lesions. Overlying soft tissues appear unremarkable. IMPRESSION: No acute cardiopulmonary abnormality is seen. Approved by: Lj Brown M.D. on 07/17/2023 at 16:59
[2023-07-17 16:45] LABS: Add Manual Diff / Slide Review NO; Basophils Absolute Auto 0 /uL (0-100); Basophils Percent Auto 0.7 % (0-2); Eosinophils Absolute Auto 100 /uL (0-450); Eosinophils Percent Auto 2.2 % (2-4); Hematocrit 40.7 % (36-46); Hemoglobin 13.4 g/dL (12.0-16.0); Lymphocytes Absolute Auto 1800 /uL (1100-4500); Lymphocytes Percent Auto 25.9 % (25-40); Mean Corpuscular Hemoglobin 30.8 PG (26-34); Mean Corpuscular Volume 93.4 fL (80-100); Monocytes Absolute Auto 600 /uL (0-900); Monocytes Percent Auto 8.3 % (3-14); Neutrophils Absolute Auto 4300 /uL (1500-7000); Neutrophils Percent Auto 62.9 % (50-75); Platelet Count 420 X10^3/uL (150-400); Red Blood Cell Count 4.35 X10^6/uL (4.0-5.2); Red Cell Distribution Width 14.3 % (11.6-14.8); White Blood Cell Count 6.8 X10^3/uL (4.5-11.0)
[2023-07-17 16:54] LABS: INR 1.3 (0.9-1.3); Prothrombin Time 15.4 SECONDS (9.4-12.5)
[2023-07-17 16:56] LABS: PTT Partial Thromboplastin Tim 53 SECONDS (25.1-36.5)
[2023-07-17 16:58] LABS: Alanine Aminotransferase 13 IU/L (<35); Albumin 4.9 g/dL (3.5-5.0); Albumin Globulin Ratio 1.6 (1.0-2.8); Alkaline Phosphatase 84 U/L (38-126); Aspartate Aminotransferase 20 IU/L (14-36); Bilirubin Total 1.3 mg/dL (0.2-1.3); Blood Urea Nitrogen 19 mg/dL (7-17); Calcium 9.5 mg/dL (8.4-10.2); Carbon Dioxide 25 mmol/L (22-32); Chloride 106 mmol/L (98-107); Creatine Kinase 90 U/L (30-135); Estimated Glomerular Filt Rate 60 mL/min (>60); Glucose 106 mg/dL (80-110); HEMOLYSIS 16 (0-50); Lipase 81 U/L (23-300); Magnesium 2.1 mg/dL (1.6-2.3); Potassium 3.1 mmol/L (3.4-5.1); Sodium 138 mmol/L (137-145); Total Protein 7.9 g/dL (6.3-8.2)
--- NOTE | 2023-07-17 16:59 | PC.NURSE ---
Pt reports starting eloquis on Sunday and has since had an upset stomach that has worsened with each eloquis dosage.
[2023-07-17 17:10] LABS: Troponin I < 0.012 ng/mL (0.01-0.034)
--- NOTE | 2023-07-17 17:46 | ED.CHESTPAIN ---
HPI - Chest Pain <Daniel Henderson MD - Last Filed: 07/30/23 15:55> General Chief Complaint: Chest Pain Stated Complaint: possible medication reaction Time Seen by Provider: 07/17/23 17:20 Source: patient Mode of arrival: Ambulatory History of Present Illness HPI narrative: Patient here with for complaints of shortness a breath and general malaise denies any chest pain or palpitations. Patient feels may be a in allergic reaction to Eliquis. She took her 1st dose yesterday in her 2nd dose this morning. Symptoms started this morning. No cough cold congestion. No urinary complaints. No nausea vomiting diarrhea. Patient seen here 2 days ago for new onset atrial fibrillation and was cardioverted. Did not take her 1st dose of Eliquis until last night because she wanted to talk to her primary care 1st blood pressure noted. She is only on amlodipine. Related Data Home Medications Medication Instructions Recorded Confirmed hydrocortisone 1 % topical cream 1 applic topical DAILY 02/10/22 07/23/23 (Hydrocream) triamcinolone acetonide 0.1 % 1 ranjan topical BID PRN Skin 02/10/22 07/23/23 topical cream Cleansing Previous Rx's Medication Instructions Recorded cholestyramine (with sugar) 4 gram See Rx Instructions .Route 06/23/22 oral powder .COMPLEX #737.52 grams meloxicam 15 mg tablet 15 mg PO DAILY #90 tabs 05/09/23 apixaban 5 mg tablet (Eliquis) 5 mg PO BID #60 tabs 07/15/23 rivaroxaban 10 mg tablet (Xarelto) 10 mg PO DAILY #10 tabs 07/17/23 rivaroxaban 10 mg tablet (Xarelto) 10 mg PO DAILY #30 tabs 07/17/23 rivaroxaban 10 mg tablet (Xarelto) 10 mg PO DAILY #30 tabs 07/18/23 diltiazem HCl 120 mg 120 mg PO Q12H #60 caps 07/23/23 capsule,extended release 12 hr Allergies Allergy/AdvReac Type Severity Reaction Status Date / Time atenolol [ATENOLOL] Allergy Severe bradycardia Verified 07/23/23 10:23 codeine [CODEINE] Allergy Severe mood change Verified 07/23/23 10:23 sertraline [From ZOLOFT] Allergy Severe vertigo Verified 07/23/23 10:23 venlafaxine [From EFFEXOR] Allergy Severe vertigo Verified 07/23/23 10:23 adhesive tape [ADHESIVE TAPE] Allergy Unknown rash Verified 07/23/23 10:23 Review of Systems <Daniel Henderson MD - Last Filed: 07/30/23 15:55> Review of Systems Narrative: GENERAL: negative chills, positive fatigue, positive malaise, negative fever, sweats. HEENT: negative sinus pain, ear pain, sore throat RESPIRATORY: Positive dyspnea, negative cough CARDIOVASCULAR: negative chest pain, palpitations GASTROINTESTINAL: negative nausea, vomiting, abdominal pain : negative dysuria, frequency, hematuria MUSCULOSKELETAL: negative muscle or bony pain SKIN: negative rash, skin lesions NEUROLOGIC: negative weakness, numbness, positive dizziness ROS Unobtainable: All systems reviewed & are unremarkable except as noted in HPI and below Patient History <Daniel Henderson MD - Last Filed: 07/30/23 15:55> Medical History Family history of early CAD Family history of type 2 diabetes mellitus Beta-blockers contraindicated due to bradycardia Hypertension Chronic diarrhea Pseudomonas aeruginosa infection (2017) Ventricular premature beats (01/27/16) Mitral valve insufficiency (02/24/16) Cholelithiasis and cholecystitis without obstruction Family History Father Myocardial infarct Brother Diabetes mellitus Hx of CABG Brother Diabetes mellitus Grandmother Breast cancer Mother Bladder cancer Social History marital status: number of children: 3 household members: spouse lives independently: Yes caregiver/support person: No housing: house Smoking Status: Never smoker second hand exposure: No alcohol intake: current substance use type: does not use Smoking Status: Never smoker alcohol intake frequency: a few times a month Substance Use Type: does not use Exam <Daniel Henderson MD - Last Filed: 07/30/23 15:55> Narrative Exam Narrative: GENERAL: in no distress, not toxic not dyspneic HEAD: Normocephalic. EYES: Pupils equal round ENT: Mucous membranes moist. NECK: Trachea midline. CARDIOVASCULAR: Regular rate and rhythm RESPIRATORY: Clear to auscultation. Breath sounds equal bilaterally. No wheezes, rales, or rhonchi. GASTROINTESTINAL: Abdomen soft, non-tender EXTREMITIES: No gross deformities. BACK: No flank tenderness. NEURO: AOx4. Fast exam is negative. Clear speech no facial droop light touch intact to bilateral face hands and legs. 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 Negative pronator drift. SKIN: Warm and dry PSYCH: Not anxious, is cooperative Initial Vital Signs Initial Vital Signs: Vital Signs Temperature 97.3 F L 07/17/23 16:18 Pulse Rate 77 07/17/23 16:18 Respiratory Rate 16 07/17/23 16:18 Blood Pressure 195/93 H 07/17/23 16:18 Pulse Oximetry 100 07/17/23 16:18 Oxygen Delivery Method Room Air 07/17/23 16:18 <Sis Whipple MD - Last Filed: 07/18/23 05:40> Initial Vital Signs Initial Vital Signs: Vital Signs Temperature 97.3 F L 07/17/23 16:18 Pulse Rate 77 07/17/23 16:18 Respiratory Rate 16 07/17/23 16:18 Blood Pressure 195/93 H 07/17/23 16:18 Pulse Oximetry 100 07/17/23 16:18 Oxygen Delivery Method Room Air 07/17/23 16:18 Course <Daniel Henderson MD - Last Filed: 07/30/23 15:55> Orders Ordered: Discontinued Medications Diltiazem HCl (Diltiazem Cd 180 Mg Cap) 180 mg PO NOW ONE Stop: 07/17/23 18:14 Last Admin: 07/17/23 18:28 Dose: 180 mg Documented By: SUJEY Losartan Potassium (Losartan 25 Mg Tablet) 25 mg PO NOW ONE Stop: 07/17/23 18:14 Last Admin: 07/17/23 18:27 Dose: 25 mg Documented By: SUJEY Vital Signs Vital signs: Vital Signs - 8 hr 07/17/23 16:18 07/17/23 16:31 07/17/23 16:32 Temperature 97.3 F L Pulse Rate 77 78 73 Respiratory Rate 16 18 Blood Pressure 195/93 H Pulse Oximetry 100 92 97 Oxygen Delivery Method Room Air 07/17/23 16:32 07/17/23 17:00 07/17/23 17:30 Temperature Pulse Rate 67 74 Respiratory Rate 24 21 Blood Pressure 210/95 H Pulse Oximetry 98 100 Oxygen Delivery Method 07/17/23 18:04 07/17/23 18:06 07/17/23 18:06 Temperature Pulse Rate 74 71 Respiratory Rate Blood Pressure 199/97 H Pulse Oximetry 99 99 Oxygen Delivery Method 07/17/23 18:27 07/17/23 18:27 07/17/23 18:27 Temperature Pulse Rate 74 72 Respiratory Rate 22 Blood Pressure 195/97 H 195/97 H Pulse Oximetry 98 Oxygen Delivery Method 07/17/23 18:30 07/17/23 18:30 07/17/23 19:00 Temperature Pulse Rate 69 Respiratory Rate 21 Blood Pressure 196/90 H 173/83 H Pulse Oximetry 99 Oxygen Delivery Method 07/17/23 19:00 07/17/23 19:30 07/17/23 19:49 Temperature Pulse Rate 72 77 74 Respiratory Rate 14 13 Blood Pressure Pulse Oximetry 99 100 99 Oxygen Delivery Method 07/17/23 19:49 07/17/23 19:54 Temperature 98.1 F Pulse Rate Respiratory Rate Blood Pressure 184/91 H Pulse Oximetry Oxygen Delivery Method <Sis Whipple MD - Last Filed: 07/18/23 05:40> Orders Ordered: Discontinued Medications Diltiazem HCl (Diltiazem Cd 180 Mg Cap) 180 mg PO NOW ONE Stop: 07/17/23 18:14 Last Admin: 07/17/23 18:28 Dose: 180 mg Documented By: SUJEY Losartan Potassium (Losartan 25 Mg Tablet) 25 mg PO NOW ONE Stop: 07/17/23 18:14 Last Admin: 07/17/23 18:27 Dose: 25 mg Documented By: SUJEY Vital Signs Vital signs: Vital Signs - 8 hr 07/17/23 16:18 07/17/23 16:31 07/17/23 16:32 Temperature 97.3 F L Pulse Rate 77 78 73 Respiratory Rate 16 18 Blood Pressure 195/93 H Pulse Oximetry 100 92 97 Oxygen Delivery Method Room Air 07/17/23 16:32 07/17/23 17:00 07/17/23 17:30 Temperature Pulse Rate 67 74 Respiratory Rate 24 21 Blood Pressure 210/95 H Pulse Oximetry 98 100 Oxygen Delivery Method 07/17/23 18:04 07/17/23 18:06 07/17/23 18:06 Temperature Pulse Rate 74 71 Respiratory Rate Blood Pressure 199/97 H Pulse Oximetry 99 99 Oxygen Delivery Method 07/17/23 18:27 07/17/23 18:27 07/17/23 18:27 Temperature Pulse Rate 74 72 Respiratory Rate 22 Blood Pressure 195/97 H 195/97 H Pulse Oximetry 98 Oxygen Delivery Method 07/17/23 18:30 07/17/23 18:30 07/17/23 19:00 Temperature Pulse Rate 69 Respiratory Rate 21 Blood Pressure 196/90 H 173/83 H Pulse Oximetry 99 Oxygen Delivery Method 07/17/23 19:00 07/17/23 19:30 07/17/23 19:49 Temperature Pulse Rate 72 77 74 Respiratory Rate 14 13 Blood Pressure Pulse Oximetry 99 100 99 Oxygen Delivery Method 07/17/23 19:49 07/17/23 19:54 Temperature 98.1 F Pulse Rate Respiratory Rate Blood Pressure 184/91 H Pulse Oximetry Oxygen Delivery Method MDM - Chest Pain <Daniel Henderson MD - Last Filed: 07/30/23 15:55> Lab Data 07/17/23 16:36 07/17/23 16:36 Labs: Lab Results 07/17/23 07/17/23 07/17/23 Range/Units 16:36 18:05 18:48 WBC 6.8 (4.5-11.0) X10^3/uL RBC 4.35 (4.0-5.2) X10^6/uL Hgb 13.4 (12.0-16.0) g/dL Hct 40.7 (36-46) % MCV 93.4 (80-100) fL MCH 30.8 (26-34) PG MCHC 33.0 (30-36) % RDW 14.3 (11.6-14.8) % Plt Count 420 H (150-400) X10^3/uL Neut % (Auto) 62.9 (50-75) % Lymph % (Auto) 25.9 (25-40) % [place] % (Auto) 8.3 (3-14) % Eos % (Auto) 2.2 (2-4) % Baso % (Auto) 0.7 (0-2) % Neut # (Auto) 4300 (5984-5611) /uL Lymph # (Auto) 1800 (8902-6844) /uL [place] # (Auto) 600 (0-900) /uL Eos # (Auto) 100 (0-450) /uL Baso # (Auto) 0 (0-100) /uL PT 15.4 H (9.4-12.5) SECONDS INR 1.3 (0.9-1.3) APTT 53 H (25.1-36.5) SECONDS Sodium 138 (137-145) mmol/L Potassium 3.1 L (3.4-5.1) mmol/L Chloride 106 (98-107) mmol/L Carbon Dioxide 25 (22-32) mmol/L BUN 19 H (7-17) mg/dL Creatinine 0.95 (0.52-1.04) mg/dL Estimated GFR 60 (>60) mL/min BUN/Creatinine Ratio 20.0 (6-22) Glucose 106 (80-110) mg/dL Calcium 9.5 (8.4-10.2) mg/dL Magnesium 2.1 (1.6-2.3) mg/dL Total Bilirubin 1.3 (0.2-1.3) mg/dL AST 20 (14-36) IU/L ALT 13 (<35) IU/L Alkaline Phosphatase 84 (38-126) U/L Total Creatine Kinase 90 80 (30-135) U/L Troponin I < 0.012 < 0.012 (0.01-0.034) ng/mL Total Protein 7.9 (6.3-8.2) g/dL Albumin 4.9 (3.5-5.0) g/dL Globulin 3.0 (1.7-4.1) g/dL Albumin/Globulin Ratio 1.6 (1.0-2.8) Lipase 81 (23-300) U/L Urine Color Yellow Urine Appearance Clear Urine pH 5.5 (4.5-8.0) Ur Specific [place] <=1.005 (1.000-1.035) Urine Protein Negative (Negative) Urine Glucose (UA) Negative (Negative) g/dL Urine Ketones Trace H (NEGATIVE) Urine Occult Blood Trace-intact (Negative) Urine Nitrate Negative (Negative) Urine Bilirubin Negative (NEGATIVE) Urine Urobilinogen 0.2 (0.2) E.U./dL Ur Leukocyte Esterase 1+ H (NEGATIVE) Urine RBC 0-1/hpf (0-5/HPF) Urine WBC 1-5/hpf (0-5/HPF) Ur Squamous Epith Cells 5-10 /hpf H (0-5/HPF) Urine Bacteria Occasional (0-1) (None) Urine Mucus 1+ H (Negative) Ur Culture Indicated? Specimen cultured Vol Urine Centrifuged 10ml (spun) Chlamy pneumoniae PCR Not detected (Not Detect) Adenovirus (PCR) Not detected (Not Detect) B.parapertussis DNA PCR Not detected (Not Detecte) Coronavirus OC43 (PCR) Not detected (Not Detect) Coronavirus HKU1 (PCR) Not detected (Not Detect) Coronavirus 229E (PCR) Not detected (Not Detect) SARS-CoV-2 (PCR) Not detected (Not Detecte) Coronavirus NL63 (PCR) Not detected (Not Detect) Human Metapneumovir PCR Not detected (Not Detect) Influenza Type A (PCR) Not detected (Not Detect) Influenza Type B (PCR) Not detected (Not Detect) M. pneumoniae (PCR) Not detected (Not Detect) Parainfluenza 1 (PCR) Not detected (Not Detect) Parainfluenza 2 (PCR) Not detected (Not Detect) Parainfluenza 3 (PCR) Not detected (Not Detect) Parainfluenza 4 (PCR) Not detected (Not Detect) RSV (PCR) Not detected (Not Detect) Entero/Rhino (PCR) Not detected (Not Detect) Imaging Data Chest x-ray: Radiologist's Impression: [address] [address] XRay Report Signed Patient: Michaela Deleon MR#: [id number] : 1940 Acct:[id number] Age/Sex: 82 / F Date of Service: 07/17/23 Loc: ED Accession Number: [id number] Procedure: XR chest 1V Ordering Provider: Daniel Henderson MD PROCEDURE: XR CHEST 1V INDICATIONS: chest pain TECHNIQUE: One view of the chest was acquired. COMPARISON: [facility], , XR CHEST 1V, 07/15/2023, 9:52. FINDINGS: Surgical changes and devices: None. Lungs and pleura: Lungs are clear. No pleural effusions or pneumothorax. Mediastinum: Mediastinal contours appear normal. Heart size is normal. Bones and chest wall: No suspicious bony lesions. Overlying soft tissues appear unremarkable. IMPRESSION: No acute cardiopulmonary abnormality is seen. Approved by: Lj Brown M.D. on 07/17/2023 at 16:59 [facility] Narrative Medical decision making narrative: Patient here with for complaints of shortness a breath and general malaise denies any chest pain or palpitations. Patient feels may be a in allergic reaction to Eliquis. She took her 1st dose yesterday in her 2nd dose this morning. Symptoms started this morning. No cough cold congestion. No urinary complaints. No nausea vomiting diarrhea. Patient seen here 2 days ago for new onset atrial fibrillation and was cardioverted. Did not take her 1st dose of Eliquis until last night because she wanted to talk to her primary care 1st blood pressure noted. She is only on amlodipine. After history and exam CBC CMP PT INR troponin chest x-ray respiratory panel urinalysis blood pressure control [facility] Medical records reviewed: ER visit here 2 days ago for cardioversion for new onset atrial fibrillation. Differential considered: Includes but not limited to atrial fibrillation STEMI non-STEMI UTI viral syndrome hypertensive urgency Lab Test results independently reviewed as above. Pertinent findings: WBC 6.8 hemoglobin 13.4 hematocrit 40 INR 1.3 sodium 138 potassium 3.1 glucose 106 troponin less than 0.012 Independently reviewed EKG normal sinus rhythm rate [address] elevation or depression Imaging studies independently reviewed: Chest x-ray no acute finding Consultations: Treatments: Re-evaluations: Discussion: Diagnosis: 6:[address] Henderson: Sign out to Dr. Whipple, repeat troponin is pending. Urinalysis and respiratory panel is pending. Blood pressure control patient only on amlodipine. I did speak with Dr. Arrington, cardiology, recommends stopping amlodipine. Start Cardizem extended release 100 mg daily. As well as losartan 25 mg daily <Sis Whipple MD - Last Filed: 07/18/23 05:40> Lab Data Labs: Lab Results 07/17/23 07/17/23 07/17/23 Range/Units 16:36 18:05 18:48 WBC 6.8 (4.5-11.0) X10^3/uL RBC 4.35 (4.0-5.2) X10^6/uL Hgb 13.4 (12.0-16.0) g/dL Hct 40.7 (36-46) % MCV 93.4 (80-100) fL MCH 30.8 (26-34) PG MCHC 33.0 (30-36) % RDW 14.3 (11.6-14.8) % Plt Count 420 H (150-400) X10^3/uL Neut % (Auto) 62.9 (50-75) % Lymph % (Auto) 25.9 (25-40) % [place] % (Auto) 8.3 (3-14) % Eos % (Auto) 2.2 (2-4) % Baso % (Auto) 0.7 (0-2) % Neut # (Auto) 4300 (8792-9464) /uL Lymph # (Auto) 1800 (5299-0316) /uL [place] # (Auto) 600 (0-900) /uL Eos # (Auto) 100 (0-450) /uL Baso # (Auto) 0 (0-100) /uL PT 15.4 H (9.4-12.5) SECONDS INR 1.3 (0.9-1.3) APTT 53 H (25.1-36.5) SECONDS Sodium 138 (137-145) mmol/L Potassium 3.1 L (3.4-5.1) mmol/L Chloride 106 (98-107) mmol/L Carbon Dioxide 25 (22-32) mmol/L BUN 19 H (7-17) mg/dL Creatinine 0.95 (0.52-1.04) mg/dL Estimated GFR 60 (>60) mL/min BUN/Creatinine Ratio 20.0 (6-22) Glucose 106 (80-110) mg/dL Calcium 9.5 (8.4-10.2) mg/dL Magnesium 2.1 (1.6-2.3) mg/dL Total Bilirubin 1.3 (0.2-1.3) mg/dL AST 20 (14-36) IU/L ALT 13 (<35) IU/L Alkaline Phosphatase 84 (38-126) U/L Total Creatine Kinase 90 80 (30-135) U/L Troponin I < 0.012 < 0.012 (0.01-0.034) ng/mL Total Protein 7.9 (6.3-8.2) g/dL Albumin 4.9 (3.5-5.0) g/dL Globulin 3.0 (1.7-4.1) g/dL Albumin/Globulin Ratio 1.6 (1.0-2.8) Lipase 81 (23-300) U/L Urine Color Yellow Urine Appearance Clear Urine pH 5.5 (4.5-8.0) Ur Specific [place] <=1.005 (1.000-1.035) Urine Protein Negative (Negative) Urine Glucose (UA) Negative (Negative) g/dL Urine Ketones Trace H (NEGATIVE) Urine Occult Blood Trace-intact (Negative) Urine Nitrate Negative (Negative) Urine Bilirubin Negative (NEGATIVE) Urine Urobilinogen 0.2 (0.2) E.U./dL Ur Leukocyte Esterase 1+ H (NEGATIVE) Urine RBC 0-1/hpf (0-5/HPF) Urine WBC 1-5/hpf (0-5/HPF) Ur Squamous Epith Cells 5-10 /hpf H (0-5/HPF) Urine Bacteria Occasional (0-1) (None) Urine Mucus 1+ H (Negative) Ur Culture Indicated? Specimen cultured Vol Urine Centrifuged 10ml (spun) Chlamy pneumoniae PCR Not detected (Not Detect) Adenovirus (PCR) Not detected (Not Detect) B.parapertussis DNA PCR Not detected (Not Detecte) Coronavirus OC43 (PCR) Not detected (Not Detect) Coronavirus HKU1 (PCR) Not detected (Not Detect) Coronavirus 229E (PCR) Not detected (Not Detect) SARS-CoV-2 (PCR) Not detected (Not Detecte) Coronavirus NL63 (PCR) Not detected (Not Detect) Human Metapneumovir PCR Not detected (Not Detect) Influenza Type A (PCR) Not detected (Not Detect) Influenza Type B (PCR) Not detected (Not Detect) M. pneumoniae (PCR) Not detected (Not Detect) Parainfluenza 1 (PCR) Not detected (Not Detect) Parainfluenza 2 (PCR) Not detected (Not Detect) Parainfluenza 3 (PCR) Not detected (Not Detect) Parainfluenza 4 (PCR) Not detected (Not Detect) RSV (PCR) Not detected (Not Detect) Entero/Rhino (PCR) Not detected (Not Detect) MDM Narrative Medical decision making narrative: Patient here with for complaints of shortness a breath and general malaise denies any chest pain or palpitations. Patient feels may be a in allergic reaction to Eliquis. She took her 1st dose yesterday in her 2nd dose this morning. Symptoms started this morning. No cough cold congestion. No urinary complaints. No nausea vomiting diarrhea. Patient seen here 2 days ago for new onset atrial fibrillation and was cardioverted. Did not take her 1st dose of Eliquis until last night because she wanted to talk to her primary care 1st blood pressure noted. She is only on amlodipine. After history and exam CBC CMP PT INR troponin chest x-ray respiratory panel urinalysis blood pressure control [facility] Medical records reviewed: ER visit here 2 days ago for cardioversion for new onset atrial fibrillation. Differential considered: Includes but not limited to atrial fibrillation STEMI non-STEMI UTI viral syndrome hypertensive urgency Lab Test results independently reviewed as above. Pertinent findings: WBC 6.8 hemoglobin 13.4 hematocrit 40 INR 1.3 sodium 138 potassium 3.1 glucose 106 troponin less than 0.012 Independently reviewed EKG normal sinus rhythm rate [address] elevation or depression Imaging studies independently reviewed: Chest x-ray no acute finding Consultations: Treatments: Re-evaluations: Discussion: Diagnosis: 6:[address] Henderson: Sign out to Dr. Whipple, repeat troponin is pending. Urinalysis and respiratory panel is pending. Blood pressure control patient only on amlodipine. I did speak with Dr. rArington, cardiology, recommends stopping amlodipine. Start Cardizem extended release 100 mg daily. As well as losartan [address] Whipple -2nd troponin negative. Patient reassessed, resting comfortably in bed. Patient states that the only reason she came to the emergency department was to get her Eliquis change to a different blood thinner. We will switch to Xarelto. Patient requested a 10 day supply and a written prescription so that her mail pharmacy will approve the prescription. Low-dose diltiazem and losartan also sent to pharmacy. Discharge Plan Departure Patient Disposition: Home Clinical Impression: Atrial fibrillation Instructions: DI for Atrial Fibrillation Activity Restrictions/Additional Instructions: Stop taking Eliquis, take Xarelto instead Patient called requesting prescription be sent to [facility] pharmacy instead. This was sent 07/18/2023 Prescriptions: New Xarelto 10 mg tablet 10 mg PO DAILY Qty: 10 0RF Rx Instructions: for 35 days Xarelto 10 mg tablet 10 mg PO DAILY Qty: 30 0RF Rx Instructions: for 35 days Xarelto 10 mg tablet 10 mg PO DAILY Qty: 30 0RF Rx Instructions: for 35 days No Action cholestyramine (with sugar) 4 gram powder See Rx Instructions .ROUTE .COMPLEX Qty: 737.52 1RF Dose Instruction: MIX 1 SCOOPFUL (4 GRAMS) IN LIQUID AND DRINK 2X/DAY WITH MEAL. AVOID OTHER MEDS WITHIN 1 HOUR BEFORE OR 4-6 HOURS AFTER DOSE Rx Instructions: MIX 1 SCOOPFUL (4 GRAMS) IN LIQUID AND DRINK 2X/DAY WITH FOOD. AVOID OTHER MEDS WITHIN 1 HOUR BEFORE OR 4-6 HOURS AFTER DOSE meloxicam 15 mg tablet 15 mg PO DAILY Qty: 90 3RF diltiazem HCl 120 mg capsule,extended release 12 hr 120 mg PO Q12H Qty: 60 3RF hydrocortisone [Hydrocream] 1 % Cream 1 applic topical DAILY triamcinolone acetonide 0.1 % cream 1 ranjan Topical BID PRN (Reason: Skin Cleansing) Eliquis 5 mg tablet 5 mg PO BID Qty: 60 0RF Referrals: Monae Espinosa MD [Primary Care Provider] - Stand Alone Forms: Patient Portal/API
[2023-07-17 18:27] LABS: Appearance Urine UA CLEAR; Bilirubin Urine UA NEGATIVE (NEGATIVE); Color Urine UA YELLOW; Glucose Urine UA NEGATIVE (Negative); Ketones Urine UA TRACE (NEGATIVE); Leukocyte Esterase Urine UA 1+ (NEGATIVE); Nitrite Urine UA NEGATIVE (Negative); Occult Blood Urine UA TRACE-INTACT (Negative); Protein Urine UA NEGATIVE (Negative); Specific Gravity Urine UA <=1.005 (1.000-1.035); Urobilinogen Urine UA 0.2 E.U./dL (0.2); pH Urine UA 5.5 (4.5-8.0)
[2023-07-17] MEDS: LOSARTAN 25 MG TABLET PO (18:27)
[2023-07-17] MEDS: dilTIAZem CD 180 MG CAP PO (18:28)
[2023-07-17 18:33] LABS: Bacteria Urine Occasional (0-1); Culture Indicated Urine Specimen Cultured; Mucus Urine 1+ (Negative); RBC Urine 0-1/HPF (0-5/HPF); Squamous Epithelial Cell Urine 5-10 /HPF (0-5/HPF); Urine Volume 10mL (spun); WBC Urine 1-5/HPF (0-5/HPF)
[2023-07-17 19:05] LABS: Creatine Kinase 80 U/L (30-135)
[2023-07-17 19:14] LABS: Adenovirus Not Detected (Not Detect); B. parapertussis Not Detected (Not Detecte); Bordetella pertussis Not Detected (Not Detect); Chlamydophila pneumoniae Not Detected (Not Detect); Coronavirus 229E Not Detected (Not Detect); Coronavirus HKU1 Not Detected (Not Detect); Coronavirus NL 63 Not Detected (Not Detect); Coronavirus OC43 Not Detected (Not Detect); Human Metapneumovirus Not Detected (Not Detect); Human Rhinovirus/Enterovirus Not Detected (Not Detect); Influenza A Not Detected (Not Detect); Influenza B Not Detected (Not Detect); Mycoplasma pneumoniae Not Detected (Not Detect); Parainfluenza Virus 1 Not Detected (Not Detect); Parainfluenza Virus 2 Not Detected (Not Detect); Parainfluenza Virus 3 Not Detected (Not Detect); Parainfluenza Virus 4 Not Detected (Not Detect); Respiratory Syncytial Virus Not Detected (Not Detect); SARS- CoV-2 Not Detected (Not Detecte)
[2023-07-17 19:17] LABS: Troponin I < 0.012 ng/mL (0.01-0.034)
== END 2023-07-17 20:05 | disposition home or self-care (01) ==
PROVIDERS: Emergency Medicine; Emergency Provider Emergency Medicine; Family Provider Physical Medicine & Rehabilitation Pain Medicine; PCP Family Medicine; Referring Provider Family Medicine
DX: I48.91 Unspecified atrial fibrillation (principal); R07.9 Chest pain, unspecified; Z79.01 Long term (current) use of anticoagulants; Z20.822 Contact with and (suspected) exposure to COVID-19
CPT/HCPCS: 36415; 71045; 80053; 81001; 82550; 83690; 83735; 84484; 85025; 85610; 85730; 87077; 87086; 87147; 87633; 93005; 99284

== ENCOUNTER → 2023-08-01 14:59 | Outpatient (CLI) | payer MEDICARE, OTHER, SELFPAY | PROVIDERS: Family Provider Physical Medicine & Rehabilitation Pain Medicine; PCP Family Medicine; Referring Provider Family Medicine; Visit Provider Family Medicine | DX: I48.91 Unspecified atrial fibrillation (principal); I48.92 Unspecified atrial flutter | CPT/HCPCS: 93246 ==

== ENCOUNTER 2023-09-28 02:20 | Observation (INO) | payer MEDICARE, OTHER, SELFPAY ==
[2023-09-28] VITALS (81 sets, daily range): BP systolic 94–213; BP diastolic 63–124; PULSE 49–153; RESP 12–47; TEMP 36–36.8; O2SAT 91–99; BMI 24.4; BMI 24.8
--- NOTE | 2023-09-28 02:33 | EKG_ITS ---
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
--- NOTE | 2023-09-28 02:33 | DI.RAD.S_ITS ---
PROCEDURE: XR CHEST 1V INDICATIONS: PALPITATIONS TECHNIQUE: One view of the chest was acquired. COMPARISON: [facility], CR, XR CHEST 1V, 07/17/2023, 16:32. FINDINGS: Surgical changes and devices: None. Lungs and pleura: Lungs are clear. No pleural effusions or pneumothorax. Mediastinum: Mediastinal contours appear normal. Heart size is normal. Bones and chest wall: No suspicious bony lesions. Overlying soft tissues appear unremarkable. IMPRESSION: No acute cardiopulmonary pathology. No discrepancies from preliminary reading. Dictated by: Robin Lenz M.D. on 09/28/2023 at 8:22 Approved by: Robin Lenz M.D. on 09/28/2023 at 8:24
--- NOTE | 2023-09-28 02:40 | ED_ITS ---
HPI - Arrhythmia/Palpitations General Chief Complaint: Arrhythmia/Palpitations Stated Complaint: heart rate not right, covid + Time Seen by Provider: 09/28/23 02:24 Source: patient Mode of arrival: Ambulatory History of Present Illness HPI narrative: 83-year-old female with history of paroxysmal atrial fibrillation presents by private vehicle from home for rapid heart rate. Patient states that she woke up in the middle of the night to use the restroom and noticed that she had a rapid heart rate. Reported sternal pressure to triage, but patient denies any complaints other than the palpitations sensation she is currently experiencing. Saw Cardiology Dr. Hawthorne of [facility] on 09/17 who continued patient on her current regimen. Takes 20mg Xarelto, 25mg Metoprolol, 50mg Losartan daily Related Data Home Medications Medication Instructions Recorded Confirmed hydrocortisone 1 % topical cream 1 applic topical DAILY 02/10/22 08/01/23 (Hydrocream) triamcinolone acetonide 0.1 % 1 ranjan topical BID PRN Skin 02/10/22 08/01/23 topical cream Cleansing Previous Rx's Medication Instructions Recorded cholestyramine (with sugar) 4 gram See Rx Instructions .Route 06/23/22 oral powder .COMPLEX #737.52 grams meloxicam 15 mg tablet 15 mg PO DAILY #90 tabs 05/09/23 diltiazem HCl 120 mg 120 mg PO Q12H #180 caps 08/21/23 capsule,extended release 12 hr rivaroxaban 10 mg tablet (Xarelto) 10 mg PO DAILY #30 tabs 08/23/23 rivaroxaban 10 mg tablet (Xarelto) 10 mg PO DAILY #14 tabs 08/27/23 rivaroxaban 10 mg tablet (Xarelto) 10 mg PO DAILY #30 tabs 09/17/23 Allergies Allergy/AdvReac Type Severity Reaction Status Date / Time atenolol [ATENOLOL] Allergy Severe bradycardia Verified 08/01/23 09:43 codeine [CODEINE] Allergy Severe mood change Verified 08/01/23 09:43 sertraline [From ZOLOFT] Allergy Severe vertigo Verified 08/01/23 09:43 venlafaxine [From EFFEXOR] Allergy Severe vertigo Verified 08/01/23 09:43 adhesive tape [ADHESIVE TAPE] Allergy Unknown rash Verified 08/01/23 09:43 Patient History Medical History Family history of early CAD Family history of type 2 diabetes mellitus Beta-blockers contraindicated due to bradycardia Hypertension Chronic diarrhea Pseudomonas aeruginosa infection (2017) Ventricular premature beats (01/27/16) Mitral valve insufficiency (02/24/16) Cholelithiasis and cholecystitis without obstruction Family History Father Myocardial infarct Brother Diabetes mellitus Hx of CABG Brother Diabetes mellitus Grandmother Breast cancer Mother Bladder cancer Social History marital status: number of children: 3 household members: spouse lives independently: Yes caregiver/support person: No housing: house Smoking Status: Never smoker second hand exposure: No alcohol intake: current substance use type: does not use Smoking Status: Never smoker alcohol intake frequency: a few times a month Substance Use Type: does not use Exam Initial Vital Signs Initial Vital Signs: Vital Signs Temperature 97.4 F L 09/28/23 02:29 Pulse Rate 70 09/28/23 02:29 Respiratory Rate 18 09/28/23 02:29 Blood Pressure 115/84 09/28/23 02:29 Pulse Oximetry 98 09/28/23 02:29 Oxygen Delivery Method Room Air 09/28/23 02:29 Const: Awake, alert, no acute distress, nontoxic appearing Cardiac: Tachycardia, irregularly irregular rhythm RESP: unlabored, clear bilaterally, no wheezing Skin: Warm, Dry, intact, no rashes Neuro: AO x3, CN II-XII grossly intact, moves all extremities Procedures Cardioversion Consent Signed: Yes Stability: Stable Number of attempts (shocks): 3 Joules used: 150 and 200 Cardiac rhythm post-cardioversion: atrial fibrillation with rvr Additional Comments: unsuccessful cardioversion Procedural Sedation Consent signed: Yes Time out performed: Yes Indication: cardioversion ASA Class: III Mallampati Airway Classification: Class II Preparation: satellite project site monitor applied, pulse oximeter, capnometry used, supplemental O2 applied, suction/airway equipment at bedside and IV secured IV Propofol dose (mg): 60 Intraservice time/total sedation time (min): 10 ED Sedation Level: Moderate (Concious) Patient Tolerated Procedure: Well and No complications Complications: none Interventions: Airway repositioned Course Orders Ordered: ED Orders 09/28/23 02:33 Chest [XR chest 1V] Stat EKG-12 Lead Stat 09/28/23 03:00 CBC Auto Diff [Complete Blood Count AUTO DIFF] Stat CMP [Comprehensive Metabolic Panel] Stat MAG [Magnesium] Stat 09/28/23 04:40 PT [Prothrombin Time INR] Stat Amiodarone HCl/Dextrose (Nexterone) 360 mg in 200 mls @ 33.333 mls/hr IV NOW ONE; Protocol Stop: 09/28/23 11:09 Discontinued Medications Amiodarone HCl/Dextrose (Nexterone) 150 mg in 100 mls @ 600 mls/hr IV NOW ONE; Protocol Stop: 09/28/23 03:57 Last Infusion: 09/28/23 04:15 Dose: Infused Documented By: Admin: 09/28/23 03:59 Dose: 600 mls/hr Documented By: ERIN Metoprolol Tartrate (Metoprolol Tartrate 5 Mg/5 Ml Inj) 5 mg IV Q5M [facility] Stop: 09/28/23 02:56 Last Admin: 09/28/23 04:07 Dose: Not Given Documented By: Admin: 09/28/23 04:07 Dose: Not Given Documented By: Admin: 09/28/23 04:07 Dose: Not Given Documented By: ERIN Metoprolol Tartrate (Metoprolol Tartrate 5 Mg/5 Ml Inj) 5 mg IV Q5M [facility] Stop: 09/28/23 03:56 Last Admin: 09/28/23 04:31 Dose: 5 mg Documented By: Admin: 09/28/23 03:45 Dose: 5 mg Documented By: ERIN Propofol (Propofol 200 Mg/20 Ml Vial) 100 mg IV NOW ONE Stop: 09/28/23 02:40 Last Admin: 09/28/23 03:24 Dose: 60 mg Documented By: ERIN Vital Signs Vital signs: Vital Signs - 8 hr 09/28/23 02:29 09/28/23 02:33 09/28/23 02:49 Temperature 97.4 F L Pulse Rate 70 151 H 152 H Respiratory Rate 18 16 19 Blood Pressure 115/84 Pulse Oximetry 98 98 98 Oxygen Delivery Method Room Air 09/28/23 02:49 09/28/23 03:00 09/28/23 03:00 Temperature Pulse Rate 152 H Respiratory Rate 17 Blood Pressure 95/69 104/75 Pulse Oximetry 98 Oxygen Delivery Method 09/28/23 03:20 09/28/23 03:20 09/28/23 03:25 Temperature Pulse Rate 153 H 150 H Respiratory Rate 16 18 Blood Pressure 112/75 100/71 Pulse Oximetry 98 97 Oxygen Delivery Method 09/28/23 03:30 09/28/23 03:30 09/28/23 03:40 Temperature Pulse Rate 153 H Respiratory Rate 22 Blood Pressure 100/71 101/75 Pulse Oximetry 94 Oxygen Delivery Method 09/28/23 03:40 09/28/23 03:48 09/28/23 04:00 Temperature Pulse Rate 150 H 143 H Respiratory Rate 20 22 Blood Pressure 112/75 Pulse Oximetry 95 Oxygen Delivery Method 09/28/23 04:00 09/28/23 04:10 09/28/23 04:10 Temperature Pulse Rate 146 H 126 H Respiratory Rate 15 17 Blood Pressure 112/76 Pulse Oximetry 97 92 Oxygen Delivery Method 09/28/23 04:21 09/28/23 04:21 09/28/23 04:30 Temperature Pulse Rate 123 H Respiratory Rate 12 Blood Pressure 128/89 121/89 Pulse Oximetry 96 Oxygen Delivery Method 09/28/23 04:30 Temperature Pulse Rate 125 H Respiratory Rate 15 Blood Pressure Pulse Oximetry 95 Oxygen Delivery Method MDM - Arrhythmia/Palpitations Differential Diagnosis Differential diagnosis: Likely palpitations, anxiety and artial fibrillation Lab Data 09/28/23 03:00 09/28/23 03:00 Labs: Lab Results 09/28/23 09/28/23 Range/Units 03:00 04:40 WBC 6.8 (4.5-11.0) X10^3/uL RBC 4.34 (4.0-5.2) X10^6/uL Hgb 13.5 (12.0-16.0) g/dL Hct 40.3 (36-46) % MCV 92.9 (80-100) fL MCH 31.1 (26-34) PG MCHC 33.5 (30-36) % RDW 14.4 (11.6-14.8) % Plt Count 387 (150-400) X10^3/uL Neut % (Auto) 60.2 (50-75) % Lymph % (Auto) 23.6 L (25-40) % [place] % (Auto) 10.9 (3-14) % Eos % (Auto) 4.7 H (2-4) % Baso % (Auto) 0.6 (0-2) % Neut # (Auto) 4100 (5038-8728) /uL Lymph # (Auto) 1600 (4868-0382) /uL [place] # (Auto) 700 (0-900) /uL Eos # (Auto) 300 (0-450) /uL Baso # (Auto) 0 (0-100) /uL PT 17.6 H (9.4-12.5) SECONDS INR 1.5 H (0.9-1.3) Sodium 139 (137-145) mmol/L Potassium 3.5 (3.4-5.1) mmol/L Chloride 110 H (98-107) mmol/L Carbon Dioxide 18 L (22-32) mmol/L BUN 20 H (7-17) mg/dL Creatinine 1.04 (0.52-1.04) mg/dL Estimated GFR 53 L (>60) mL/min BUN/Creatinine Ratio 19.2 (6-22) Glucose 116 H (80-110) mg/dL Calcium 9.0 (8.4-10.2) mg/dL Magnesium 2.2 (1.6-2.3) mg/dL Total Bilirubin 0.8 (0.2-1.3) mg/dL AST 17 (14-36) IU/L ALT 14 (<35) IU/L Alkaline Phosphatase 81 (38-126) U/L Total Protein 7.2 (6.3-8.2) g/dL Albumin 4.3 (3.5-5.0) g/dL Globulin 2.9 (1.7-4.1) g/dL Albumin/Globulin Ratio 1.5 (1.0-2.8) Point of Care Testing Test Results Negative MDM Narrative Medical decision making narrative: Patient presenting for palpitations, known history of atrial fibrillation. States she has been compliant with her metoprolol and Xarelto. EKG shows AFib with RVR, nonspecific changes, likely secondary to tachycardia. Patient denying any shortness of breath or chest pain at this time. Patient states she has COVID 19, tested positive at home, however since patient has been compliant with xarelto I have low suspicion for coagulation at this time. Unsuccessful cardioversion despite 3 synchronized attempts at 150, 200, 200 joules. Patient remained in atrial fibrillation at a rate of 150 beats per minute after cardioversion attempt. Subsequently 150 mg of amiodarone bolus attempted. Heart rate persistently 120-130 beats per minute, atrial fibrillation despite amiodarone and metoprolol administration. Electrolytes are within normal limits. Call placed to Cardiology for assistance Discussed case with Dr. Guerra of cardiology = recommends 24 hour loading dose of amiodarone and admission to hospital. Patient in agreement at this time. Critical Care Time Critical Care Time Critical Care Time: Yes Total Critical Care Time: 46 Attestation: Atrial fibrillation with rapid ventricular response requiring multiple doses of IV antiarrhythmic medications, cardioversion attempts, discussion with Cardiology. Discharge Plan Departure Patient Disposition: Admitted as Observation Clinical Impression: Atrial fibrillation with RVR Admit Date/Time: 09/28/23 05:21 Admit Provider: Perry Hoskins
[2023-09-28 03:20] LABS: Add Manual Diff / Slide Review NO; Basophils Absolute Auto 0 /uL (0-100); Basophils Percent Auto 0.6 % (0-2); Eosinophils Absolute Auto 300 /uL (0-450); Eosinophils Percent Auto 4.7 % (2-4); Hematocrit 40.3 % (36-46); Hemoglobin 13.5 g/dL (12.0-16.0); Lymphocytes Absolute Auto 1600 /uL (1100-4500); Lymphocytes Percent Auto 23.6 % (25-40); Mean Corpuscular HGB Conc 33.5 % (30-36); Mean Corpuscular Hemoglobin 31.1 PG (26-34); Mean Corpuscular Volume 92.9 fL (80-100); Monocytes Absolute Auto 700 /uL (0-900); Monocytes Percent Auto 10.9 % (3-14); Neutrophils Absolute Auto 4100 /uL (1500-7000); Neutrophils Percent Auto 60.2 % (50-75); Platelet Count 387 X10^3/uL (150-400); Red Blood Cell Count 4.34 X10^6/uL (4.0-5.2); Red Cell Distribution Width 14.4 % (11.6-14.8); White Blood Cell Count 6.8 X10^3/uL (4.5-11.0)
[2023-09-28] MEDS: propofoL 200 MG/20 ML VIAL 100 MG IV (03:24)
[2023-09-28 03:33] LABS: Alanine Aminotransferase 14 IU/L (<35); Albumin 4.3 g/dL (3.5-5.0); Albumin Globulin Ratio 1.5 (1.0-2.8); Alkaline Phosphatase 81 U/L (38-126); Aspartate Aminotransferase 17 IU/L (14-36); BUN Creatinine Ratio 19.2 (6-22); Bilirubin Total 0.8 mg/dL (0.2-1.3); Blood Urea Nitrogen 20 mg/dL (7-17); Carbon Dioxide 18 mmol/L (22-32); Chloride 110 mmol/L (98-107); Estimated Glomerular Filt Rate 53 mL/min (>60); Globulin 2.9 g/dL (1.7-4.1); Glucose 116 mg/dL (80-110); HEMOLYSIS 20 (0-50); Magnesium 2.2 mg/dL (1.6-2.3); Potassium 3.5 mmol/L (3.4-5.1); Sodium 139 mmol/L (137-145); Total Protein 7.2 g/dL (6.3-8.2)
[2023-09-28] MEDS: METOPROLOL TARTRATE 5 MG/5 ML INJ IV ×2 (03:45→04:31)
[2023-09-28] MEDS: AMIODARONE 150 MG/100 ML PIGGYBACK 600 MG IV (03:59)
[2023-09-28 04:56] LABS: INR 1.5 (0.9-1.3); Prothrombin Time 17.6 SECONDS (9.4-12.5)
[2023-09-28] MEDS: AMIODARONE 360 MG/200 ML PIGGYBACK 33.33 MG IV (05:38)
--- NOTE | 2023-09-28 06:04 | ED_ITS ---
HPI - Arrhythmia/Palpitations General Chief Complaint: Arrhythmia/Palpitations Stated Complaint: heart rate not right, covid + Time Seen by Provider: 09/28/23 02:24 Source: patient Mode of arrival: Ambulatory History of Present Illness HPI narrative: 83 years old female with a past medical history of Airtel fibrillation, hypertension, and other medical issues was brought to the emergency room by private vehicle for rapid ventricular rate. She was woken up around 1 AM with the rapid heart rate, and some sternal but no Chest pain. Denies any dizziness or loss of consciousness. Denies any shortness of breath. Denies any nausea vomiting. No recent history of cough, fever headache, or symptoms. In the emergency room, was noted to be in fibrillation with rapid ventricular rate. Unsuccessful cardioversion despite three synchronized attempts at 1:50, 200 and 200 J subsequently I made around 150 mg bolus was attempted in addition to metoprolol. Dr. Ron cardiology was consulted and recommended amiodarone infusion with a 24 hour loading dose. Patient was admitted for further evaluation Related Data Home Medications Medication Instructions Recorded Confirmed hydrocortisone 1 % topical cream 1 applic topical DAILY 02/10/22 08/01/23 (Hydrocream) triamcinolone acetonide 0.1 % 1 ranjan topical BID PRN Skin 02/10/22 08/01/23 topical cream Cleansing Previous Rx's Medication Instructions Recorded cholestyramine (with sugar) 4 gram See Rx Instructions .Route 06/23/22 oral powder .COMPLEX #737.52 grams meloxicam 15 mg tablet 15 mg PO DAILY #90 tabs 05/09/23 diltiazem HCl 120 mg 120 mg PO Q12H #180 caps 08/21/23 capsule,extended release 12 hr rivaroxaban 10 mg tablet (Xarelto) 10 mg PO DAILY #30 tabs 08/23/23 rivaroxaban 10 mg tablet (Xarelto) 10 mg PO DAILY #14 tabs 08/27/23 rivaroxaban 10 mg tablet (Xarelto) 10 mg PO DAILY #30 tabs 09/17/23 Allergies Allergy/AdvReac Type Severity Reaction Status Date / Time atenolol [ATENOLOL] Allergy Severe bradycardia Verified 08/01/23 09:43 codeine [CODEINE] Allergy Severe mood change Verified 08/01/23 09:43 sertraline [From ZOLOFT] Allergy Severe vertigo Verified 08/01/23 09:43 venlafaxine [From EFFEXOR] Allergy Severe vertigo Verified 08/01/23 09:43 adhesive tape [ADHESIVE TAPE] Allergy Unknown rash Verified 08/01/23 09:43 Review of Systems Review of Systems Narrative: 12 point review of system is negative unless otherwise boted in HPI Patient History Medical History Family history of early CAD Family history of type 2 diabetes mellitus Beta-blockers contraindicated due to bradycardia Hypertension Chronic diarrhea Pseudomonas aeruginosa infection (2017) Ventricular premature beats (01/27/16) Mitral valve insufficiency (02/24/16) Cholelithiasis and cholecystitis without obstruction Family History Father Myocardial infarct Brother Diabetes mellitus Hx of CABG Brother Diabetes mellitus Grandmother Breast cancer Mother Bladder cancer Social History marital status: number of children: 3 household members: spouse lives independently: Yes caregiver/support person: No housing: house Smoking Status: Never smoker second hand exposure: No alcohol intake: current substance use type: does not use Smoking Status: Never smoker alcohol intake frequency: a few times a month Substance Use Type: does not use Exam Narrative Exam Narrative: patient is awake and following commands no acute distress Initial Vital Signs Initial Vital Signs: Vital Signs Temperature 97.4 F L 09/28/23 02:29 Pulse Rate 70 09/28/23 02:29 Respiratory Rate 18 09/28/23 02:29 Blood Pressure 115/84 09/28/23 02:29 Pulse Oximetry 98 09/28/23 02:29 Oxygen Delivery Method Room Air 09/28/23 02:29 Course Course Course Narrative: 83 years old female with a past medical history of Airtel fibrillation, hypertension, and other medical issues was brought to the emergency room by private vehicle for rapid ventricular rate. She was woken up around 1 AM with the rapid heart rate, and some sternal but no Chest pain. Denies any dizziness or loss of consciousness. Denies any shortness of breath. Denies any nausea vomiting. No recent history of cough, fever headache, or symptoms. In the emergency room, was noted to be in fibrillation with rapid ventricular rate. Unsuccessful cardioversion despite three synchronized attempts at 1:50, 200 and 200 J subsequently I made around 150 mg bolus was attempted in addition to metoprolol. Dr. Ron cardiology was consulted and recommended amiodarone infusion with a 24 hour loading dose. Patient was admitted for further evaluation Separation with represent not responding to cardioversion. Infusion loading dose has been initiated per Cardiology and will complete the 24 hour monitor and the telemetry. Denies any chest pain or cardiac symptoms. Follow up for with cardiology for further input continue the home alto after verification Hypertension, resume the home meds after verification . DVD prophylaxis on Homes Patient will be admitted under observation status? Orders Ordered: ED Orders 09/28/23 02:33 Chest [XR chest 1V] Stat EKG-12 Lead Stat 09/28/23 03:00 CBC Auto Diff [Complete Blood Count AUTO DIFF] Stat CMP [Comprehensive Metabolic Panel] Stat MAG [Magnesium] Stat 09/28/23 04:40 PT [Prothrombin Time INR] Stat Amiodarone HCl/Dextrose (Nexterone) 360 mg in 200 mls @ 33.333 mls/hr IV NOW ONE; Protocol Stop: 09/28/23 11:09 Last Admin: 09/28/23 05:38 Dose: 33.33 ml/hr, 33.33 mls/hr Documented By: ERIN Discontinued Medications Amiodarone HCl/Dextrose (Nexterone) 150 mg in 100 mls @ 600 mls/hr IV NOW ONE; Protocol Stop: 09/28/23 03:57 Last Infusion: 09/28/23 04:15 Dose: Infused Documented By: Admin: 09/28/23 03:59 Dose: 600 mls/hr Documented By: ERIN Metoprolol Tartrate (Metoprolol Tartrate 5 Mg/5 Ml Inj) 5 mg IV Q5M [facility] Stop: 09/28/23 02:56 Last Admin: 09/28/23 04:07 Dose: Not Given Documented By: Admin: 09/28/23 04:07 Dose: Not Given Documented By: Admin: 09/28/23 04:07 Dose: Not Given Documented By: ERIN Metoprolol Tartrate (Metoprolol Tartrate 5 Mg/5 Ml Inj) 5 mg IV Q5M [facility] Stop: 09/28/23 03:56 Last Admin: 09/28/23 05:41 Dose: Not Given Documented By: Admin: 09/28/23 04:31 Dose: 5 mg Documented By: Admin: 09/28/23 03:45 Dose: 5 mg Documented By: ERIN Propofol (Propofol 200 Mg/20 Ml Vial) 100 mg IV NOW ONE Stop: 09/28/23 02:40 Last Admin: 09/28/23 03:24 Dose: 60 mg Documented By: ERIN Vital Signs Vital signs: Vital Signs - 8 hr 09/28/23 02:29 09/28/23 02:33 09/28/23 02:49 Temperature 97.4 F L Pulse Rate 70 151 H 152 H Respiratory Rate 18 16 19 Blood Pressure 115/84 Pulse Oximetry 98 98 98 Oxygen Delivery Method Room Air 09/28/23 02:49 09/28/23 03:00 09/28/23 03:00 Temperature Pulse Rate 152 H Respiratory Rate 17 Blood Pressure 95/69 104/75 Pulse Oximetry 98 Oxygen Delivery Method 09/28/23 03:20 09/28/23 03:20 09/28/23 03:25 Temperature Pulse Rate 153 H 150 H Respiratory Rate 16 18 Blood Pressure 112/75 100/71 Pulse Oximetry 98 97 Oxygen Delivery Method 09/28/23 03:30 09/28/23 03:30 09/28/23 03:40 Temperature Pulse Rate 153 H Respiratory Rate 22 Blood Pressure 100/71 101/75 Pulse Oximetry 94 Oxygen Delivery Method 09/28/23 03:40 09/28/23 03:48 09/28/23 04:00 Temperature Pulse Rate 150 H 143 H Respiratory Rate 20 22 Blood Pressure 112/75 Pulse Oximetry 95 Oxygen Delivery Method 09/28/23 04:00 09/28/23 04:10 09/28/23 04:10 Temperature Pulse Rate 146 H 126 H Respiratory Rate 15 17 Blood Pressure 112/76 Pulse Oximetry 97 92 Oxygen Delivery Method 09/28/23 04:21 09/28/23 04:21 09/28/23 04:30 Temperature Pulse Rate 123 H Respiratory Rate 12 Blood Pressure 128/89 121/89 Pulse Oximetry 96 Oxygen Delivery Method 09/28/23 04:30 09/28/23 04:40 09/28/23 04:40 Temperature Pulse Rate 125 H 123 H Respiratory Rate 15 15 Blood Pressure 123/91 H Pulse Oximetry 95 97 Oxygen Delivery Method 09/28/23 04:50 09/28/23 04:50 09/28/23 05:00 Temperature Pulse Rate 126 H Respiratory Rate 16 Blood Pressure 126/96 H 127/92 H Pulse Oximetry 98 Oxygen Delivery Method 09/28/23 05:00 09/28/23 05:11 09/28/23 05:11 Temperature Pulse Rate 132 H 129 H Respiratory Rate 18 30 H Blood Pressure 140/101 H Pulse Oximetry 97 99 Oxygen Delivery Method MDM - Arrhythmia/Palpitations Lab Data 09/28/23 03:00 09/28/23 03:00 Labs: Lab Results 09/28/23 09/28/23 Range/Units 03:00 04:40 WBC 6.8 (4.5-11.0) X10^3/uL RBC 4.34 (4.0-5.2) X10^6/uL Hgb 13.5 (12.0-16.0) g/dL Hct 40.3 (36-46) % MCV 92.9 (80-100) fL MCH 31.1 (26-34) PG MCHC 33.5 (30-36) % RDW 14.4 (11.6-14.8) % Plt Count 387 (150-400) X10^3/uL Neut % (Auto) 60.2 (50-75) % Lymph % (Auto) 23.6 L (25-40) % [place] % (Auto) 10.9 (3-14) % Eos % (Auto) 4.7 H (2-4) % Baso % (Auto) 0.6 (0-2) % Neut # (Auto) 4100 (9933-8692) /uL Lymph # (Auto) 1600 (4123-4947) /uL [place] # (Auto) 700 (0-900) /uL Eos # (Auto) 300 (0-450) /uL Baso # (Auto) 0 (0-100) /uL PT 17.6 H (9.4-12.5) SECONDS INR 1.5 H (0.9-1.3) Sodium 139 (137-145) mmol/L Potassium 3.5 (3.4-5.1) mmol/L Chloride 110 H (98-107) mmol/L Carbon Dioxide 18 L (22-32) mmol/L BUN 20 H (7-17) mg/dL Creatinine 1.04 (0.52-1.04) mg/dL Estimated GFR 53 L (>60) mL/min BUN/Creatinine Ratio 19.2 (6-22) Glucose 116 H (80-110) mg/dL Calcium 9.0 (8.4-10.2) mg/dL Magnesium 2.2 (1.6-2.3) mg/dL Total Bilirubin 0.8 (0.2-1.3) mg/dL AST 17 (14-36) IU/L ALT 14 (<35) IU/L Alkaline Phosphatase 81 (38-126) U/L Total Protein 7.2 (6.3-8.2) g/dL Albumin 4.3 (3.5-5.0) g/dL Globulin 2.9 (1.7-4.1) g/dL Albumin/Globulin Ratio 1.5 (1.0-2.8) Point of Care Testing Test Results Negative Discharge Plan Departure Patient Disposition: Admitted as Observation Clinical Impression: Atrial fibrillation with RVR
[2023-09-28 08:55] LABS: COVID19 -Nasal RAPID POSITIVE (Negative)
--- NOTE | 2023-09-28 09:11 | PM.HP.1 ---
History of Present Illness History of Present Illness Date Patient Seen: 09/28/23 Time Patient Seen: 08:15 Chief complaint: heart rate not right, covid + Narrative: Pt is a 83yo woman with paroxysmal atrial fibrillation and hypertension who presents with palpitations. The pt reports that she woke around 1am to use the restroom, and noted that she could feel her heart pounding in her chest. She layed back down in bed, but the sensation did not resolve. The pt then checked her BP, and her HR was in the 120s. This did not improve in a brief period of time, so she woke her and they came to the ED for evaluation. The pt denies any SOB or donta chest pain. She denies any LE edema. On 09/23 she did have some flu-like symptoms with body aches, and tested positive for COVID. She denies any fevers, cough, abdominal pain, diarrhea, nausea/vomiting. In the ED, the pt was noted to be in atrial fibrillation with RVR. Three cardioversion attempts were made which were unsuccessful. Cardiology was consulted, who recommended IV Amiodarone, which was initiated. [facility] Medical History Family history of early CAD Family history of type 2 diabetes mellitus Beta-blockers contraindicated due to bradycardia Hypertension Chronic diarrhea Pseudomonas aeruginosa infection (2017) Ventricular premature beats (01/27/16) Mitral valve insufficiency (02/24/16) Cholelithiasis and cholecystitis without obstruction Family History Father Myocardial infarct Brother Diabetes mellitus Hx of CABG Brother Diabetes mellitus Grandmother Breast cancer Mother Bladder cancer Social History marital status: number of children: 3 household members: spouse lives independently: Yes caregiver/support person: No housing: house Smoking Status: Never smoker second hand exposure: No alcohol intake: current substance use type: does not use Meds Home Medications and Allergies Home Medications Medication Instructions Recorded Confirmed Type hydrocortisone 1 % topical cream 1 applic topical DAILY 02/10/22 08/01/23 History (Hydrocream) triamcinolone acetonide 0.1 % 1 ranjan topical BID PRN Skin 02/10/22 08/01/23 History topical cream Cleansing cholestyramine (with sugar) 4 gram See Rx Instructions .Route 06/23/22 08/01/23 Rx oral powder .COMPLEX #737.52 grams meloxicam 15 mg tablet 15 mg PO DAILY #90 tabs 05/09/23 08/01/23 Rx diltiazem HCl 120 mg 120 mg PO Q12H #180 caps 08/21/23 Rx capsule,extended release 12 hr rivaroxaban 10 mg tablet (Xarelto) 10 mg PO DAILY #30 tabs 08/23/23 Rx rivaroxaban 10 mg tablet (Xarelto) 10 mg PO DAILY #14 tabs 08/27/23 Rx rivaroxaban 10 mg tablet (Xarelto) 10 mg PO DAILY #30 tabs 09/17/23 Rx Allergies Allergy/AdvReac Type Severity Reaction Status Date / Time atenolol [ATENOLOL] Allergy Severe bradycardia Verified 08/01/23 09:43 codeine [CODEINE] Allergy Severe mood change Verified 08/01/23 09:43 sertraline [From ZOLOFT] Allergy Severe vertigo Verified 08/01/23 09:43 venlafaxine [From EFFEXOR] Allergy Severe vertigo Verified 08/01/23 09:43 adhesive tape [ADHESIVE TAPE] Allergy Unknown rash Verified 08/01/23 09:43 Exam Vital Signs (past 8 hours): - 09/28/23 02:29 09/28/23 02:33 09/28/23 02:49 Temperature 97.4 F L Pulse Rate 70 151 H 152 H Respiratory Rate 18 16 19 Blood Pressure 115/84 Pulse Oximetry 98 98 98 Oxygen Delivery Method Room Air 09/28/23 02:49 09/28/23 03:00 09/28/23 03:00 Temperature Pulse Rate 152 H Respiratory Rate 17 Blood Pressure 95/69 104/75 Pulse Oximetry 98 Oxygen Delivery Method 09/28/23 03:20 09/28/23 03:20 09/28/23 03:25 Temperature Pulse Rate 153 H 150 H Respiratory Rate 16 18 Blood Pressure 112/75 100/71 Pulse Oximetry 98 97 Oxygen Delivery Method 09/28/23 03:30 09/28/23 03:30 09/28/23 03:40 Temperature Pulse Rate 153 H Respiratory Rate 22 Blood Pressure 100/71 101/75 Pulse Oximetry 94 Oxygen Delivery Method 09/28/23 03:40 09/28/23 03:48 09/28/23 04:00 Temperature Pulse Rate 150 H 143 H Respiratory Rate 20 22 Blood Pressure 112/75 Pulse Oximetry 95 Oxygen Delivery Method 09/28/23 04:00 09/28/23 04:10 09/28/23 04:10 Temperature Pulse Rate 146 H 126 H Respiratory Rate 15 17 Blood Pressure 112/76 Pulse Oximetry 97 92 Oxygen Delivery Method 09/28/23 04:21 09/28/23 04:21 09/28/23 04:30 Temperature Pulse Rate 123 H Respiratory Rate 12 Blood Pressure 128/89 121/89 Pulse Oximetry 96 Oxygen Delivery Method 09/28/23 04:30 09/28/23 04:40 09/28/23 04:40 Temperature Pulse Rate 125 H 123 H Respiratory Rate 15 15 Blood Pressure 123/91 H Pulse Oximetry 95 97 Oxygen Delivery Method 09/28/23 04:50 09/28/23 04:50 09/28/23 05:00 Temperature Pulse Rate 126 H Respiratory Rate 16 Blood Pressure 126/96 H 127/92 H Pulse Oximetry 98 Oxygen Delivery Method 09/28/23 05:00 09/28/23 05:11 09/28/23 05:11 Temperature Pulse Rate 132 H 129 H Respiratory Rate 18 30 H Blood Pressure 140/101 H Pulse Oximetry 97 99 Oxygen Delivery Method 09/28/23 05:30 09/28/23 05:34 09/28/23 05:34 Temperature Pulse Rate 132 H 133 H Respiratory Rate 15 25 H Blood Pressure 110/82 Pulse Oximetry 98 97 Oxygen Delivery Method 09/28/23 05:46 09/28/23 05:46 09/28/23 05:51 Temperature Pulse Rate 133 H Respiratory Rate 16 Blood Pressure 131/79 111/65 Pulse Oximetry 99 Oxygen Delivery Method 09/28/23 05:51 09/28/23 06:00 09/28/23 06:01 Temperature Pulse Rate 132 H 136 H Respiratory Rate 12 15 Blood Pressure 94/63 Pulse Oximetry 98 97 Oxygen Delivery Method 09/28/23 06:01 09/28/23 06:10 09/28/23 06:10 Temperature Pulse Rate 135 H 129 H Respiratory Rate 13 14 Blood Pressure 107/80 Pulse Oximetry 95 98 Oxygen Delivery Method 09/28/23 06:30 09/28/23 06:31 09/28/23 06:31 Temperature Pulse Rate 131 H 129 H Respiratory Rate 32 H 16 Blood Pressure 134/92 H Pulse Oximetry 95 97 Oxygen Delivery Method 09/28/23 07:00 09/28/23 07:30 09/28/23 07:31 Temperature Pulse Rate 133 H 130 H Respiratory Rate 14 21 Blood Pressure 149/106 H Pulse Oximetry 97 97 Oxygen Delivery Method 09/28/23 07:31 09/28/23 07:45 09/28/23 07:45 Temperature Pulse Rate 128 H 132 H Respiratory Rate 16 16 Blood Pressure 133/101 H Pulse Oximetry 98 96 Oxygen Delivery Method 09/28/23 08:00 09/28/23 08:00 09/28/23 08:16 Temperature Pulse Rate 130 H Respiratory Rate 21 Blood Pressure 118/93 H 140/94 H Pulse Oximetry 97 Oxygen Delivery Method 09/28/23 08:16 Temperature Pulse Rate 129 H Respiratory Rate 47 H Blood Pressure Pulse Oximetry 98 Oxygen Delivery Method Oxygen Delivery Method Room Air Narrative Exam Narrative: Gen: NAD, sitting comfortably in bed, pleasantly conversant, appears well Neck: no LAD, no JVD CV: irregularly irregular rhythm, tachycardic, no murmurs Resp: clear to auscultation bilaterally Abd: soft, nontender, nondistended Ext: no edema Neuro: no gross deficits Objective Labs 09/28/23 03:00 09/28/23 03:00 Labs: Laboratory Results - last 24 hr 09/28/23 09/28/23 09/28/23 03:00 04:40 08:28 WBC 6.8 RBC 4.34 Hgb 13.5 Hct 40.3 MCV 92.9 MCH 31.1 MCHC 33.5 RDW 14.4 Plt Count 387 Neut % (Auto) 60.2 Lymph % (Auto) 23.6 L [place] % (Auto) 10.9 Eos % (Auto) 4.7 H Baso % (Auto) 0.6 Neut # (Auto) 4100 Lymph # (Auto) 1600 [place] # (Auto) 700 Eos # (Auto) 300 Baso # (Auto) 0 PT 17.6 H INR 1.5 H Sodium 139 Potassium 3.5 Chloride 110 H Carbon Dioxide 18 L BUN 20 H Creatinine 1.04 Estimated GFR 53 L BUN/Creatinine Ratio 19.2 Glucose 116 H Calcium 9.0 Magnesium 2.2 Total Bilirubin 0.8 AST 17 ALT 14 Alkaline Phosphatase 81 Total Protein 7.2 Albumin 4.3 Globulin 2.9 Albumin/Globulin Ratio 1.5 SARS-CoV-2 (PCR) Positive H Assessment & Plan Assessment & Plan narrative: Pt is a 83yo woman with paroxysmal atrial fibrillation and hypertension who presents with palpitations, found to be in afib with RVR. 1) Afib with RVR: Failed cardioversion attempt x 3. HR in the 120s, to the 140s with activity. No electrolyte abnormalities. - Amiodarone load initiated in the ED, will continue - Continue Metoprolol ER 25mg daily - transitioned to this from Diltiazem on 09/17; room to increase dosing if needed - Continue Xarelto - Telemetry - Echocardiogram 2) Hypertension: Pts BP elevated currently - Continue home Losartan 50mg, re-initiated by Cardiology on 09/17 - Metoprolol as above FEN: Cardiac diet Code: Full DVT ppx: On Xarelto Dispo: Admission to ICU. Pending stabilization of HR. Time-Based Coding :: [TOTAL MINUTES] spent with patient and on the chart (including review of chart, obtaining history, exam, reviewing outside data, placing orders, documenting exam and treatment plan, and counseling patient) on [DATE]. PROFEE Charge Codes Initial inpatient/observation care: 90607
--- NOTE | 2023-09-28 11:00 | PC.NURSE ---
This RN attempted to call Dr. Espinosa at 10:20. Called and talked to transition assistant to talk to provider about amiodarone drip ending.
--- NOTE | 2023-09-28 11:06 | DI.ECHO.S_ITS ---
[facility]---------+ [facility] : : [address] : : [place] : : [id number] : : Phone: [phone] Echocardiogram Report + + :Name: FABIENNE CURTIS Study Date: 09/28/2023 Height: 67 in : :[facility] ReadingLocation: Weight: 156 lb : : Gender: Female BSA: 1.8 m2 : :: 1940 Age: 83 yrs BP: 169/91 mmHg: :Reason For Study: AFIB WITH RVR : :Ordering Physician: TEENA : :ROGE Performed By: Eliana Myles : :Referring: ROGE DICKINSON : + + Interpretation Summary The patient was in sinus bradycardia with heart rates between 59-67 bpm during the exam. The ejection fraction is estimated to be 55-60%. Diastolic parameters suggest probable normal left ventricular diastolic function and normal filling pressures. The right ventricle is normal in size and function. The right ventricular systolic pressure is estimated to be at least 29 mmHg based on an estimated right atrial pressure of 3 mm Hg. There is mild to moderate mitral regurgitation. Procedure: A two-dimensional transthoracic echocardiogram with color flow and Doppler was performed. The study quality was technically adequate. Comparison is made with the echocardiogram of 12/12/2018. The patient was in sinus bradycardia with heart rates between 59-67 bpm during the exam. Left Ventricle: The left ventricle is normal in size and wall thickness. The ejection fraction is estimated to be 55-60%. Left ventricular wall motion is normal. Diastolic parameters suggest probable normal left ventricular diastolic function and normal filling pressures. Right Ventricle: The right ventricle is normal in size and function. Atria: The left atrial size is normal. Right atrial size is normal. There is no Doppler evidence for an interatrial shunt. Mitral Valve: The mitral valve is normal in structure and function. There is mild to moderate mitral regurgitation. Aortic Valve: The aortic valve is trileaflet. The aortic valve opens well. There is no aortic valve stenosis. There is trace aortic regurgitation. Tricuspid Valve: The tricuspid valve is normal in structure and function. There is mild tricuspid regurgitation. The right ventricular systolic pressure is estimated to be at least 29 mmHg based on an estimated right atrial pressure of 3 mm Hg. Pulmonic Valve: The pulmonic valve leaflets are thin and pliable; valve motion is normal. There is mild pulmonic regurgitation. Great Vessels: The aortic root is normal size. The dimensions of the ascending aorta are normal. The IVC is of normal diameter and collapses greater than 50% with a sniff. This suggests a low right atrial pressure of 3 mm Hg. Pericardium/ Pleura There is no pericardial effusion. There is no pleural effusion. MMode/2D Measurements & Calculations LVIDd: 4.6 cm LVOT diam: 1.9 cm LVIDs: 3.5 cm Ao root diam: 3.2 cm FS: 25.5 % asc Aorta Diam: 3.2 cm IVSd: 0.79 cm Ao Arch Diam (Prox Trans): 2.9 cm LVPWd: 0.75 cm LV vilchis. diameter/BSA (cm/m^2): 2.5 LV sys. diameter/BSA (cm/m^2): 1.9 LA A2 area: 17.4 cm2 RA long axis: 5.4 cm LA A4 area: 15.3 cm2 RA area: 15.6 cm2 LA length (vol): 4.9 cm RA vol: 38.3 ml LA vol: 46.3 ml RA : 21.0 ml/m2 LA vol index: 25.4 ml/m2 IVC diam: 1.1 cm RVD1 (basal): 3.4 cm TAPSE: 1.8 cm Doppler Measurements & Calculations Ao V2 max: 115.5 cm/sec LVOT Max Leeroy: 88.2 cm/sec Ao V2 mean: 80.5 cm/sec LV V1 max P.1 mmHg Ao max P.3 mmHg LV V1 VTI: 20.2 cm Ao mean P.9 mmHg SWATI(I,D): 2.1 cm2 Ao V2 VTI: 27.6 cm SWATI(V,D): 2.2 cm2 sev ratio: 0.73 SWATI indexed to BSA (cm^2/m^2): 1.1 MV E max leeroy: 67.5 cm/sec TR max leeroy: 254.8 cm/sec MV A max leeroy: 86.8 cm/sec TR max P.0 mmHg MV E/A: 0.78 PA V2 max: 86.2 cm/sec Med Peak E' Leeroy: 5.2 cm/sec PA V2 mean: 57.9 cm/sec E/E' med: 13.0 PA mean P.5 mmHg Lat Peak E' Leeroy: 7.4 cm/sec PA pr(Accel): 19.1 mmHg E/E' lat: 9.1 E/e' average: 11.1 MV dec time: 0.25 sec SVLVOT): 56.9 ml Reading Physician:AURY
[2023-09-28] MEDS: AMIODARONE 360 MG/200 ML PIGGYBACK 16.7 MG IV ×2 (11:31→21:56)
[2023-09-28] MEDS: LOSARTAN 50 MG TABLET PO (11:33)
[2023-09-28] MEDS: METOPROLOL ER 25 MG TABLET PO (11:34)
--- NOTE | 2023-09-28 12:08 | EKG_ITS ---
[facility] [address] [place] [address] Test Date: 2023-09-28 Pat Name: Michaela Deleon Department: Room: 229 Gender: Female [place] [employer]: : 1940 Requested By: Order Number: [id number] Reading MD: Nelson Sifuentes MD Measurements Intervals [place] Rate: 61 P: 30 AR: 166 QRS: 40 QRSD: 88 T: 18 QT: 424 QTc: 426 Interpretive Statements Normal sinus rhythm Nonspecific ST abnormality Electronically Signed On 09-28-2023 13:46:12 PDT by Nelson Sifuentes MD
[2023-09-28 12:44] LABS: MRSA (Nasal) PCR NOT DETECTED (Not Detect)
[2023-09-28] MEDS: CHOLESTYRAMINE/ASPARTAME 4 GM PACK PO (13:06)
--- NOTE | 2023-09-28 14:38 | PC.ADMIT ---
[email or web address] Admission Note: The patient,Michaela Deleon,83 y/o, was given written information regarding hospital policies, unit procedures and contact persons. Patient's smoking status: Never smoker. Vital Signs - 8 hr 09/28/23 07:00 09/28/23 07:30 09/28/23 07:31 Temperature Pulse Rate 133 H 130 H Respiratory Rate 14 21 Blood Pressure 149/106 H Pulse Oximetry 97 97 09/28/23 07:31 09/28/23 07:45 09/28/23 07:45 Temperature Pulse Rate 128 H 132 H Respiratory Rate 16 16 Blood Pressure 133/101 H Pulse Oximetry 98 96 09/28/23 08:00 09/28/23 08:00 09/28/23 08:16 Temperature Pulse Rate 130 H Respiratory Rate 21 Blood Pressure 118/93 H 140/94 H Pulse Oximetry 97 09/28/23 08:16 09/28/23 08:30 09/28/23 08:30 Temperature Pulse Rate 129 H 128 H Respiratory Rate 47 H 18 Blood Pressure 144/98 H Pulse Oximetry 98 98 09/28/23 08:45 09/28/23 08:45 09/28/23 09:00 Temperature Pulse Rate 129 H Respiratory Rate Blood Pressure 162/111 H 159/111 H Pulse Oximetry 98 09/28/23 09:00 09/28/23 09:15 09/28/23 09:15 Temperature Pulse Rate 135 H 76 Respiratory Rate 24 14 Blood Pressure 174/93 H Pulse Oximetry 97 99 09/28/23 09:30 09/28/23 09:30 09/28/23 09:46 Temperature Pulse Rate 72 73 Respiratory Rate Blood Pressure 176/89 H Pulse Oximetry 98 99 09/28/23 09:46 09/28/23 10:00 09/28/23 10:00 Temperature Pulse Rate 69 Respiratory Rate Blood Pressure 166/89 H 163/92 H Pulse Oximetry 98 09/28/23 10:15 09/28/23 10:15 09/28/23 10:30 Temperature Pulse Rate 69 Respiratory Rate 23 Blood Pressure 171/96 H 173/96 H Pulse Oximetry 96 09/28/23 10:30 09/28/23 11:00 09/28/23 11:06 Temperature 96.8 F L Pulse Rate 67 66 Respiratory Rate Blood Pressure Pulse Oximetry 98 99 09/28/23 11:17 09/28/23 11:17 09/28/23 11:23 Temperature Pulse Rate 71 Respiratory Rate Blood Pressure 213/112 H Pulse Oximetry 98 99 09/28/23 11:24 09/28/23 11:25 09/28/23 11:25 Temperature Pulse Rate 65 Respiratory Rate Blood Pressure 177/100 H 169/91 H Pulse Oximetry 91 09/28/23 11:30 09/28/23 11:33 09/28/23 11:34 Temperature Pulse Rate 74 64 64 Respiratory Rate 19 Blood Pressure 169/91 H 169/91 H Pulse Oximetry 97 09/28/23 12:00 09/28/23 12:00 09/28/23 12:30 Temperature Pulse Rate 62 65 Respiratory Rate 32 H 30 H Blood Pressure 188/88 H Pulse Oximetry 97 97 09/28/23 13:00 09/28/23 13:01 09/28/23 13:01 Temperature Pulse Rate 62 62 Respiratory Rate 25 H 22 Blood Pressure 210/95 H Pulse Oximetry 99 98 09/28/23 13:30 09/28/23 14:00 09/28/23 14:01 Temperature Pulse Rate 60 60 60 Respiratory Rate 14 16 16 Blood Pressure Pulse Oximetry 99 98 97 09/28/23 14:01 Temperature Pulse Rate Respiratory Rate Blood Pressure 169/81 H Pulse Oximetry 1120 Pt arrived via gurney from ED, just finished 2nd bag of Amiodarone at 33.33, started 3rd bag at 16.7, when pt was connected to monitoring this nurse noted that pt had converted to NSR, EKG confirmed, provider notified. It was explained to pt that she would still need to continue with the 24hrs of Amiodarone gtt in ordered to insure that she would remain in NSR. Also noted that pt was slightly hypertensive, as pt had not taken her home cardiac meds, cardiac meds administered, BP now WNL. Oriented to room and call light system, bed low and locked, call light within reach, no further needs at this time.
[2023-09-28] MEDS: RIVAROXABAN 10 MG TABLET 15 MG PO (17:28)
[2023-09-29] VITALS (26 sets, daily range): BP systolic 119–198; BP diastolic 69–118; PULSE 45–77; RESP 12–33; TEMP 36.2–36.6; O2SAT 90–99
[2023-09-29] MEDS: SODIUM CHLORIDE 0.9% FLUSH 10 ML IV (05:05)
[2023-09-29 07:06] LABS: BUN Creatinine Ratio 14.6 (6-22); Blood Urea Nitrogen 13 mg/dL (7-17); Calcium 8.9 mg/dL (8.4-10.2); Carbon Dioxide 24 mmol/L (22-32); Chloride 108 mmol/L (98-107); Estimated Glomerular Filt Rate > 60 mL/min (>60); Glucose 104 mg/dL (80-110); HEMOLYSIS < 15 (0-50); Magnesium 2.1 mg/dL (1.6-2.3); Potassium 3.9 mmol/L (3.4-5.1); Sodium 138 mmol/L (137-145)
--- NOTE | 2023-09-29 08:36 | PM.DS.1 ---
History of Present Illness History of Present Illness Date Patient Seen: 09/29/23 Time Patient Seen: 08:36 Date of Onset of Symptoms: 09/27/23 Chief complaint: heart rate not right, covid + Narrative: Pt is a 83yo woman with paroxysmal atrial fibrillation and hypertension who presents with palpitations. The pt reports that she woke around 1am to use the restroom, and noted that she could feel her heart pounding in her chest. She layed back down in bed, but the sensation did not resolve. The pt then checked her BP, and her HR was in the 120s. This did not improve in a brief period of time, so she woke her and they came to the ED for evaluation. The pt denies any SOB or donta chest pain. She denies any LE edema. On 09/23 she did have some flu-like symptoms with body aches, and tested positive for COVID. She denies any fevers, cough, abdominal pain, diarrhea, nausea/vomiting. In the ED, the pt was noted to be in atrial fibrillation with RVR. Three cardioversion attempts were made which were unsuccessful. Cardiology was consulted, who recommended IV Amiodarone, which was initiated. Discharge Providers Provider Date of admission: 09/28/23 08:16 Discharge Date: 09/29/23 Primary care physician: Monae Espinosa MD Discharge provider: Jose Bland MD Summary Hospital Course Discharge Diagnosis: Atrial fibrillation with RVR Hypertension Hospital Course: Atrial fibrillation with RVR. Patient was attempted to have cardioversion in the emergency room. Still with heart rates in the 120s to 140s. Discussion with inspector integrated circuits amiodarone was started and IV drip worked effectively before she came to the floor she was cardioverted. She did well completed the drip and has continued to do well. She was started on p.o. amiodarone at 100 mg a day and will be followed up with her regular doctor on Sunday. Hypertension stable throughout the course of mission. Will be followed. COVID. Seems to be doing well. Lungs are clear respiratory rate is stable. Exam Vital Signs (past 8 hours): - 09/29/23 01:00 09/29/23 01:01 09/29/23 01:01 Temperature Pulse Rate 47 L 48 L Respiratory Rate 14 14 Blood Pressure 162/79 H Pulse Oximetry 94 95 09/29/23 01:30 09/29/23 02:00 09/29/23 02:00 Temperature Pulse Rate 49 L 52 L Respiratory Rate 14 14 Blood Pressure 164/118 H Pulse Oximetry 93 95 09/29/23 02:05 09/29/23 02:05 09/29/23 02:30 Temperature Pulse Rate 62 50 L Respiratory Rate 33 H 14 Blood Pressure 169/90 H Pulse Oximetry 97 94 09/29/23 03:00 09/29/23 03:00 09/29/23 03:30 Temperature Pulse Rate 48 L 47 L Respiratory Rate 13 23 Blood Pressure 124/69 Pulse Oximetry 90 L 93 09/29/23 04:00 09/29/23 04:01 09/29/23 04:01 Temperature 97.8 F Pulse Rate 45 L 46 L Respiratory Rate 26 H 27 H Blood Pressure 140/76 Pulse Oximetry 94 94 09/29/23 04:36 09/29/23 05:00 09/29/23 05:00 Temperature Pulse Rate 70 54 L Respiratory Rate 12 Blood Pressure 179/91 H Pulse Oximetry 98 97 09/29/23 05:16 09/29/23 05:16 09/29/23 05:20 Temperature Pulse Rate 60 Respiratory Rate 14 Blood Pressure 197/98 H 179/94 H Pulse Oximetry 99 09/29/23 05:20 09/29/23 05:30 09/29/23 06:00 Temperature Pulse Rate 57 L 54 L Respiratory Rate 24 12 Blood Pressure 166/91 H Pulse Oximetry 97 94 09/29/23 06:00 Temperature Pulse Rate 53 L Respiratory Rate 17 Blood Pressure Pulse Oximetry 94 Oxygen Delivery Method Room Air Narrative Exam Narrative: Alert elderly female lying comfortably in bed in no acute distress Lungs are clear heart is regular rate and rhythm abdomen is soft positive bowel sounds neurologic exam is normal Objective Labs 09/28/23 03:00 09/29/23 06:19 Labs: Laboratory Results - last 24 hr 09/28/23 09/28/23 09/29/23 08:28 11:21 06:19 Sodium 138 Potassium 3.9 Chloride 108 H Carbon Dioxide 24 BUN 13 Creatinine 0.89 Estimated GFR > 60 BUN/Creatinine Ratio 14.6 Glucose 104 Calcium 8.9 Magnesium 2.1 Nasal Screen MRSA (PCR) Not detected SARS-CoV-2 (PCR) Positive H [facility] Medical History Family history of early CAD Family history of type 2 diabetes mellitus Beta-blockers contraindicated due to bradycardia Hypertension Chronic diarrhea Pseudomonas aeruginosa infection (2017) Ventricular premature beats (01/27/16) Mitral valve insufficiency (02/24/16) Cholelithiasis and cholecystitis without obstruction Family History Father Myocardial infarct Brother Diabetes mellitus Hx of CABG Brother Diabetes mellitus Grandmother Breast cancer Mother Bladder cancer Social History marital status: number of children: 3 household members: spouse lives independently: Yes caregiver/support person: No housing: house Smoking Status: Never smoker second hand exposure: No alcohol intake: current substance use type: does not use Discharge Assessment & Plan Assessment and Plan Assessment: Improved Plan of Treatment: Discharge home Discharge Plan Discharge Plan Patient Disposition: Home Discharge orders & Medications Prescriptions: New amiodarone 200 mg Tablet 100 mg PO DAILY Qty: 30 1RF Continued cholestyramine (with sugar) 4 gram powder See Rx Instructions .ROUTE .COMPLEX Qty: 737.52 1RF Dose Instruction: MIX 1 SCOOPFUL (4 GRAMS) IN LIQUID AND DRINK 2X/DAY WITH MEAL. AVOID OTHER MEDS WITHIN 1 HOUR BEFORE OR 4-6 HOURS AFTER DOSE Rx Instructions: MIX 1 SCOOPFUL (4 GRAMS) IN LIQUID AND DRINK 2X/DAY WITH FOOD. AVOID OTHER MEDS WITHIN 1 HOUR BEFORE OR 4-6 HOURS AFTER DOSE Xarelto 20 mg tablet 15 mg PO DAILY losartan 50 mg Tablet 50 mg PO DAILY metoprolol succinate 25 mg Tablet Extended Release 24 Hr 25 mg PO DAILY Discontinued meloxicam 15 mg tablet 15 mg PO DAILY Qty: 90 3RF diltiazem HCl 120 mg capsule,extended release 12 hr 120 mg PO Q12H Qty: 180 3RF Follow up/Referrals: Monae Espinosa MD [Primary Care Provider] - 10/02/23 (Patient with appointment already.) Discharge Health Status Multidrug resistant organism: No MDRO Diet/Activity/Treatments Diet: Diet as Tolerated Activity: As tolerated Skin/Wound/Dressing Care Report to your healthcare provider any signs of infection, such as:: chills, fever, night sweats and increased pain Visit Report/Discharge Packet Stand Alone Forms: Patient Portal/API, Stroke Signs & Symptoms Discharge Data Primary Care Provider: Monae Espinosa
[2023-09-29] MEDS: AMIODARONE 200 MG TABLET 100 MG PO (08:52)
[2023-09-29] MEDS: METOPROLOL ER 25 MG TABLET PO (08:52)
[2023-09-29] MEDS: LOSARTAN 50 MG TABLET PO (08:53)
--- NOTE | 2023-09-29 11:15 | CM.DANOTE ---
Patient is an 83 yo female who was admitted OBS Status on 09/28/23 for AFIB with RVR. Pt has [facility] and [facility] for insurance and her PCP is Dr. Monae Espinosa. EMR was reviewed. Per MD, pt with hx of AFIB and tested COVID+ on 09/24/23 and now admitted for AFIB with RVR and remains COVID+. Pt was able to convert and now medically stable to discharge today and no identified barriers to discharge. UR RN provided pt's WEBER form via phone due to COVID+ and discussed with pt and Dtr and also confirmed that pt lives at home in [place] with her spouse and both are active and independent at baseline and pt does not use DME for ambulation and still drives some. Pt has local supportive family and her spouse is DPOA and pt has POLST and POA pwk scanned into chart. Pt and family do not anticipate any needs at discharge today and preference is home this morning. Plan: Patient discharged home today via family POV and no SW needs at this time. WILBER Ball Discharge Planning/Care Management CM Discharge Assessment Start: 09/29/23 10:48 Freq: Status: Discharge Protocol: Document 09/29/23 10:48 BF (Rec: 09/29/23 10:50 BF [id number]) Discharge Planning Assessment Assigned Barbed Wire Machine Operator WILBER Caraballo DPOA/Assigned Designee Name spouse Cooper Contact Information [phone] Advance Directives? Yes: POLST Advance Directives on File Yes History Provided By Patient,Family Member,Medical Record Has Patient been admitted in last 30 No days? Prior Living Arrangements House Household Members spouse Type of transporation used prior to Drives own vehicle admit Independent with ADL's Yes Is patient alert and oriented? Yes Caregiver for Another No Barriers to Discharge No Transportation Arrangement family bedside and will transport Referrals Initiated None needed Whiteboard Updated in Patient Room with Yes name and ext. # of Barbed Wire Machine Operator Review Status In Process Please Provide Date Initial DC 09/29/23 Assessment Was Performed Next Review Type Continued Stay Review
== END 2023-09-29 09:16 | disposition home or self-care (01) ==
LOC: ED 02:24 → AC 05:35 → ED 08:09 → AC 08:47 → ICU 11:28 → AC 10-01 08:46
PROVIDERS: Admitting Provider Family Medicine; Emergency Provider Emergency Medicine; Family Provider Physical Medicine & Rehabilitation Pain Medicine; PCP Family Medicine; Referring Provider Emergency Medicine; Visit Provider Family Medicine
DX: I48.0 Paroxysmal atrial fibrillation (principal); U07.1 COVID-19; I10 Essential (primary) hypertension
CPT/HCPCS: 36415; 71045; 80048; 80053; 83735; 85025; 85610; 87635; 87797; 92960; 93005; 93010; 93306; 96365; 96366; 99152; 99223; 99285; 99291; G0378; J0282; J2704

== ENCOUNTER 2023-09-30 12:25 | Emergency (ER) | payer MEDICARE, OTHER, SELFPAY ==
[2023-09-28 13:25] VITALS: BMI 24.8
[2023-09-30] VITALS (25 sets, daily range): BP systolic 116–235; BP diastolic 63–151; PULSE 52–70; RESP 11–24; TEMP 36.9; O2SAT 97–99; BMI 24.1
--- NOTE | 2023-09-30 14:48 | PC.NURSE ---
patient is here today in the department because family members and patient are concerned about her hypertension, she was 209/96 in the room when this RN assessed. She reports being asymptomatic; no pain, dizziness, vision changes, davis.
--- NOTE | 2023-09-30 15:12 | EKG_ITS ---
[facility] [address] [place] [address] Test Date: 2023-09-30 Pat Name: Michaela Deleon Department: Room: Gender: Female Table Inspector: : 1940 Requested By: Order Number: [id number] Reading MD: Satya Lala Measurements Intervals [place] Rate: 54 P: 44 AR: 162 QRS: 39 QRSD: 90 T: 24 QT: 468 QTc: 443 Interpretive Statements Sinus bradycardia Electronically Signed On 10-03-2023 9:16:07 PDT by Satya Lala
--- NOTE | 2023-09-30 17:17 | DI.RAD.S_ITS ---
PROCEDURE: XR CHEST 1V INDICATIONS: chest pain TECHNIQUE: One view of the chest was acquired. COMPARISON: [facility], CR, XR CHEST 1V, 09/28/2023, 2:35. FINDINGS: Surgical changes and devices: None. Lungs and pleura: Lungs are clear. No pleural effusions or pneumothorax. Mediastinum: Mediastinal contours appear normal. Heart size is normal. Bones and chest wall: No suspicious bony lesions. Overlying soft tissues appear unremarkable. IMPRESSION: No acute cardiopulmonary pathology. Dictated by: Robin Lenz M.D. on 09/30/2023 at 17:42 Approved by: Robin Lenz M.D. on 09/30/2023 at 17:46
[2023-09-30 18:02] LABS: Add Manual Diff / Slide Review NO; Basophils Absolute Auto 0 /uL (0-100); Basophils Percent Auto 0.7 % (0-2); Eosinophils Absolute Auto 100 /uL (0-450); Eosinophils Percent Auto 1.4 % (2-4); Hematocrit 40.4 % (36-46); Hemoglobin 13.7 g/dL (12.0-16.0); Lymphocytes Absolute Auto 1300 /uL (1100-4500); Lymphocytes Percent Auto 20.3 % (25-40); Mean Corpuscular Hemoglobin 31.4 PG (26-34); Mean Corpuscular Volume 92.5 fL (80-100); Monocytes Absolute Auto 500 /uL (0-900); Monocytes Percent Auto 8.4 % (3-14); Neutrophils Absolute Auto 4300 /uL (1500-7000); Neutrophils Percent Auto 69.2 % (50-75); Platelet Count 429 X10^3/uL (150-400); Red Blood Cell Count 4.36 X10^6/uL (4.0-5.2); Red Cell Distribution Width 14.2 % (11.6-14.8); White Blood Cell Count 6.3 X10^3/uL (4.5-11.0)
--- NOTE | 2023-09-30 18:08 | ED_ITS ---
HPI - General Adult General Chief complaint: Hypertension Stated complaint: Hypertensive Time Seen by Provider: 09/30/23 17:59 Source: patient Mode of arrival: Ambulatory History of Present Illness HPI narrative: 83-year-old female here for elevated blood pressure concerns in context of multiple recent medication changes. She has history of atrial fibrillation new diagnosis July 2023, started on Xarelto chronic anticoagulation at that time, and also she believes metoprolol at that time. Diltiazem was taken at some point in the past and was discontinued. Hydrochlorothiazide was prescribed but apparently is no longer taken. She is still taking losartan and metoprolol. Two days ago she presented here with atrial fibrillation and rapid ventricular response, refractory to cardioversion attempt, IV amiodarone admission, discharged on new amiodarone medication. Per review of medications with family and patient, she believes her current medication regimen includes losartan, metoprolol, amiodarone, Xarelto. Earlier today she had home blood pressure measurements 200/105. She had no associated headache, shortness of breath, weakness, numbness, nausea or vomiting, headache. She is due to see her doctor Sunday in clinic in 2 days. She also was diagnosed with COVID on Sunday, recent few days of cough, feels better, denies shortness of breath. She has not taking antiviral medications. She seems most concerned about her blood pressure elevation. Related Data Home Medications Medication Instructions Recorded Confirmed losartan 50 mg tablet 50 mg PO DAILY 09/28/23 09/30/23 metoprolol succinate 25 mg 25 mg PO DAILY 09/28/23 09/30/23 tablet,extended release 24 hr rivaroxaban 20 mg tablet (Xarelto) 20 mg PO DAILY 09/28/23 09/30/23 amiodarone 200 mg tablet 200 mg PO DAILY 09/30/23 09/30/23 Previous Rx's Medication Instructions Recorded cholestyramine (with sugar) 4 gram See Rx Instructions .Route 06/23/22 oral powder .COMPLEX #737.52 grams Allergies Allergy/AdvReac Type Severity Reaction Status Date / Time atenolol [ATENOLOL] Allergy Severe bradycardia Verified 08/01/23 09:43 codeine [CODEINE] Allergy Severe mood change Verified 08/01/23 09:43 sertraline [From ZOLOFT] Allergy Severe vertigo Verified 08/01/23 09:43 venlafaxine [From EFFEXOR] Allergy Severe vertigo Verified 08/01/23 09:43 adhesive tape [ADHESIVE TAPE] Allergy Unknown rash Verified 08/01/23 09:43 Review of Systems Review of Systems Narrative: see HPI Patient History Medical History Family history of early CAD Family history of type 2 diabetes mellitus Beta-blockers contraindicated due to bradycardia Hypertension Chronic diarrhea Pseudomonas aeruginosa infection (2017) Ventricular premature beats (01/27/16) Mitral valve insufficiency (02/24/16) Cholelithiasis and cholecystitis without obstruction Family History Father Myocardial infarct Brother Diabetes mellitus Hx of CABG Brother Diabetes mellitus Grandmother Breast cancer Mother Bladder cancer Social History marital status: number of children: 3 household members: spouse lives independently: Yes caregiver/support person: No housing: house Smoking Status: Never smoker second hand exposure: No alcohol intake: current substance use type: does not use Smoking Status: Never smoker alcohol intake frequency: a few times a month Substance Use Type: does not use Exam Narrative Exam Narrative: GENERAL: Well-developed patient, in mild distress. HEAD: Atraumatic. Normocephalic. EYES: Pupils equal round and reactive. Extraocular motions intact. No scleral icterus. No injection or drainage. ENT: Nose without bleeding, purulent drainage. Throat without erythema, tonsillar hypertrophy or exudate. Airway patent. NECK: Trachea midline. Non tender CARDIOVASCULAR: Regular rate and rhythm without murmurs, gallops, or rubs. RESPIRATORY: Clear to auscultation. Breath sounds equal bilaterally. No wheezes, rales, or rhonchi. GASTROINTESTINAL: Abdomen soft, non-tender, nondistended. EXTREMITIES: No edema or joint tenderness. BACK: Nontender without deformity or crepitance. No flank tenderness. NEURO: AOx3. SKIN: No rash or erythema of visible areas Initial Vital Signs Initial Vital Signs: Vital Signs Temperature 98.4 F 09/30/23 12:54 Pulse Rate 67 09/30/23 12:54 Respiratory Rate 20 09/30/23 12:54 Blood Pressure 192/126 H 09/30/23 12:54 Pulse Oximetry 98 09/30/23 12:54 Oxygen Delivery Method Room Air 09/30/23 12:54 Course Orders Ordered: ED Orders 09/30/23 17:17 XR chest 1V Stat 09/30/23 17:50 Complete Blood Count AUTO DIFF Stat Comprehensive Metabolic Panel Stat Lipase Stat NT-proBNP (BNP-Adult 18+) Stat Troponin & CK Cardiac Panel Stat 09/30/23 19:04 Trop I [Troponin I] Stat Discontinued Medications Hydralazine HCl (Hydralazine 20 Mg/Ml Vial) 5 mg IV NOW ONE Stop: 09/30/23 18:31 Last Admin: 09/30/23 18:43 Dose: 5 mg Documented By: YA Vital Signs Vital signs: Vital Signs - 8 hr 09/30/23 18:00 09/30/23 18:01 09/30/23 18:01 Pulse Rate 66 66 Respiratory Rate 15 24 Blood Pressure 197/114 H Pulse Oximetry 99 98 Oxygen Delivery Method 09/30/23 18:30 09/30/23 18:30 09/30/23 18:43 Pulse Rate 62 65 Respiratory Rate 16 Blood Pressure 187/92 H 187/92 H Pulse Oximetry 99 Oxygen Delivery Method Room Air 09/30/23 19:00 09/30/23 19:00 09/30/23 19:30 Pulse Rate 69 Respiratory Rate 13 Blood Pressure 155/74 H 141/69 H Pulse Oximetry 98 Oxygen Delivery Method 09/30/23 19:30 09/30/23 19:33 09/30/23 19:56 Pulse Rate 68 70 70 Respiratory Rate 16 20 Blood Pressure 141/69 H Pulse Oximetry 98 98 Oxygen Delivery Method 09/30/23 19:56 09/30/23 20:00 09/30/23 20:00 Pulse Rate 66 Respiratory Rate 18 Blood Pressure 131/89 116/63 Pulse Oximetry 99 Oxygen Delivery Method 09/30/23 20:30 09/30/23 20:30 09/30/23 21:00 Pulse Rate 61 63 Respiratory Rate 16 18 Blood Pressure 147/71 H Pulse Oximetry 97 98 Oxygen Delivery Method 09/30/23 21:00 09/30/23 21:30 09/30/23 21:30 Pulse Rate 58 L Respiratory Rate 12 Blood Pressure 153/77 H 151/76 H Pulse Oximetry 98 Oxygen Delivery Method 09/30/23 22:00 09/30/23 22:00 Pulse Rate 56 L Respiratory Rate 13 Blood Pressure 158/79 H Pulse Oximetry 98 Oxygen Delivery Method Medical Decision Making Lab Data Lab results reviewed: Yes I reviewed the patient's lab results. 09/30/23 17:50 09/30/23 17:50 Labs: Lab Results 09/30/23 09/30/23 Range/Units 17:50 19:04 WBC 6.3 (4.5-11.0) X10^3/uL RBC 4.36 (4.0-5.2) X10^6/uL Hgb 13.7 (12.0-16.0) g/dL Hct 40.4 (36-46) % MCV 92.5 (80-100) fL MCH 31.4 (26-34) PG MCHC 34.0 (30-36) % RDW 14.2 (11.6-14.8) % Plt Count 429 H (150-400) X10^3/uL Neut % (Auto) 69.2 (50-75) % Lymph % (Auto) 20.3 L (25-40) % [place] % (Auto) 8.4 (3-14) % Eos % (Auto) 1.4 L (2-4) % Baso % (Auto) 0.7 (0-2) % Neut # (Auto) 4300 (6373-4611) /uL Lymph # (Auto) 1300 (6371-3998) /uL [place] # (Auto) 500 (0-900) /uL Eos # (Auto) 100 (0-450) /uL Baso # (Auto) 0 (0-100) /uL Sodium 139 (137-145) mmol/L Potassium 3.5 (3.4-5.1) mmol/L Chloride 106 (98-107) mmol/L Carbon Dioxide 26 (22-32) mmol/L BUN 19 H (7-17) mg/dL Creatinine 1.02 (0.52-1.04) mg/dL Estimated GFR 55 L (>60) mL/min BUN/Creatinine Ratio 18.6 (6-22) Glucose 104 (80-110) mg/dL Calcium 9.6 (8.4-10.2) mg/dL Total Bilirubin 1.2 (0.2-1.3) mg/dL AST 23 (14-36) IU/L ALT 24 (<35) IU/L Alkaline Phosphatase 82 (38-126) U/L Total Creatine Kinase 89 (30-135) U/L Troponin I 0.038 H 0.040 H (0.01-0.034) ng/mL NT-Pro-B Natriuret Pep 760 H (<450) pg/mL Total Protein 7.7 (6.3-8.2) g/dL Albumin 4.3 (3.5-5.0) g/dL Globulin 3.4 (1.7-4.1) g/dL Albumin/Globulin Ratio 1.3 (1.0-2.8) Lipase 92 (23-300) U/L Imaging Data Chest x-ray: Radiologist's Impression: [address] [address] XRay Report Signed Patient: Michaela Deleon MR#: [id number] : 1940 Acct:[id number] Age/Sex: 83 / F Date of Service: 09/30/23 Loc: ED Accession Number: [id number] Procedure: XR chest 1V Ordering Provider: Janey Johnson D.O. PROCEDURE: XR CHEST 1V INDICATIONS: chest pain TECHNIQUE: One view of the chest was acquired. COMPARISON: [facility], , XR CHEST 1V, 09/28/2023, 2:35. FINDINGS: Surgical changes and devices: None. Lungs and pleura: Lungs are clear. No pleural effusions or pneumothorax. Mediastinum: Mediastinal contours appear normal. Heart size is normal. Bones and chest wall: No suspicious bony lesions. Overlying soft tissues appear unremarkable. IMPRESSION: No acute cardiopulmonary pathology. Dictated by: Robin Lenz M.D. on 09/30/2023 at 17:42 Approved by: Robin Lenz M.D. on 09/30/2023 at 17:46 ECG Data Attestation: I personally reviewed and interpreted this ECG as follows: Interpretation: Sinus bradycardia with rate of 54, no obvious ST segment elevation or depression changes. Flat T-waves leads 3, upright in leads 2 and F. DC 162 QRS 90, QTC 443. MDM Narrative Medical decision making narrative: 83-year-old with recent admission for refractory AFib RVR, on new amiodarone medication, concerned about blood pressure elevation. She apparently is also taking losartan, metoprolol, Xarelto. No longer taking previous lead prescribed hydrochlorothiazide, amlodipine, diltiazem medications. Elevated blood pressure in triage 197/114 noted. EKG shows sinus bradycardia, no obvious ischemic changes. On vehicle monitor technician it does appear that she seems to be intermittently in atrial fibrillation, however if ventricular response rate 50-65 range. Labs test unremarkable, troponin negative. We will give test dose of hydralazine IV 5 mg. Blood pressure improved 140-150 range. Interval troponin also not particularly elevated. We discussed blood pressure medications, she had various medications that she had taken in the past such as amlodipine and possibly hydrochlorothiazide, as well as diltiazem, which were stopped for unclear reasons. With family present we reviewed her current medications that seemed to include: Metoprolol, losartan, Xarelto, and new amiodarone from recent hospital stay. Advised patient contact her PCP tomorrow Sunday morning to discuss blood pressure control strategy further. She has appointment with PCP on Sunday, however may need some other blood pressure medication regimen changes before that visit. Return precautions discussed. She wanted to go home, did not want any further testing or observation, and went home with family. Discharge Plan Departure Patient Disposition: Home Clinical Impression: Hypertension, History of atrial fibrillation Activity Restrictions/Additional Instructions: History of hypertension and atrial fibrillation, recent admission for atrial fibrillation with rapid ventricular response that was not responsive to electrical cardioversion attempts, IV amiodarone given in hospital, and oral amiodarone on discharge. You were otherwise report taking your other chronic medications including oral metoprolol, oral blood thinner Xarelto, oral losartan blood pressure medication. You had elevated blood pressure readings today. No obvious ischemic changes on EKG, serial troponin blood tests not particularly elevated. No ongoing chest pain or shortness of breath. Heart rate 60 low range noted. We did not give additional IV medication beta-tristan or calcium channel tristan, as that would likely further reduce your heart rate in could cause dizziness or other problems. We did give IV hydralazine low dose 5 mg, and her blood pressure improved to 140-150 range. On review of what medications he took in the past, it was somewhat confusing, you had mentioned possible hydrochlorothiazide, possible diltiazem, possible amlodipine in the past. Unclear why these medications were discontinued. You have appointment in 2 days Sunday with your regular provider Dr. Espinosa. Consider calling her office tomorrow Sunday morning, to see if she can see your any earlier, to discuss further antihypertensive regimen treatment plan. Return earlier to this/nearest emergency department for any change worsening symptoms or any concerns prior Prescriptions: No Action cholestyramine (with sugar) 4 gram powder See Rx Instructions .ROUTE .COMPLEX Qty: 737.52 1RF Dose Instruction: MIX 1 SCOOPFUL (4 GRAMS) IN LIQUID AND DRINK 2X/DAY WITH MEAL. AVOID OTHER MEDS WITHIN 1 HOUR BEFORE OR 4-6 HOURS AFTER DOSE Rx Instructions: MIX 1 SCOOPFUL (4 GRAMS) IN LIQUID AND DRINK 2X/DAY WITH FOOD. AVOID OTHER MEDS WITHIN 1 HOUR BEFORE OR 4-6 HOURS AFTER DOSE amiodarone 200 mg tablet 200 mg PO DAILY Xarelto 20 mg tablet 20 mg PO DAILY losartan 50 mg Tablet 50 mg PO DAILY metoprolol succinate 25 mg Tablet Extended Release 24 Hr 25 mg PO DAILY Referrals: Monae Espinosa MD [Primary Care Provider] - Stand Alone Forms: Patient Portal/API
[2023-09-30 18:14] LABS: Alanine Aminotransferase 24 IU/L (<35); Albumin 4.3 g/dL (3.5-5.0); Albumin Globulin Ratio 1.3 (1.0-2.8); Alkaline Phosphatase 82 U/L (38-126); Aspartate Aminotransferase 23 IU/L (14-36); BUN Creatinine Ratio 18.6 (6-22); Bilirubin Total 1.2 mg/dL (0.2-1.3); Blood Urea Nitrogen 19 mg/dL (7-17); Calcium 9.6 mg/dL (8.4-10.2); Carbon Dioxide 26 mmol/L (22-32); Chloride 106 mmol/L (98-107); Creatine Kinase 89 U/L (30-135); Estimated Glomerular Filt Rate 55 mL/min (>60); Globulin 3.4 g/dL (1.7-4.1); Glucose 104 mg/dL (80-110); HEMOLYSIS < 15 (0-50); Lipase 92 U/L (23-300); Potassium 3.5 mmol/L (3.4-5.1); Sodium 139 mmol/L (137-145); Total Protein 7.7 g/dL (6.3-8.2)
[2023-09-30 18:25] LABS: NT-proBNP (BNP-Adult 18+) 760 pg/mL (<450); Troponin I 0.038 ng/mL (0.01-0.034)
[2023-09-30] MEDS: HYDRALAZINE 20 MG/ML VIAL 5 MG IV (18:43)
== END 2023-09-30 22:15 | disposition home or self-care (01) ==
PROVIDERS: Emergency Medicine; Emergency Provider Emergency Medicine; Family Provider Physical Medicine & Rehabilitation Pain Medicine; PCP Family Medicine
DX: I10 Essential (primary) hypertension (principal); R07.9 Chest pain, unspecified; I48.91 Unspecified atrial fibrillation; Z79.01 Long term (current) use of anticoagulants
CPT/HCPCS: 36415; 71045; 80053; 82550; 83690; 83880; 84484; 85025; 93005; 96374; 99284; J0360

== ENCOUNTER 2023-10-04 10:58 | Emergency (ER) | payer MEDICARE, OTHER, SELFPAY ==
[2023-09-28 13:25] VITALS: BMI 24.8
[2023-10-04] VITALS (17 sets, daily range): BP systolic 141–224; BP diastolic 72–111; PULSE 48–81; RESP 12–22; TEMP 36.8; O2SAT 94–100; BMI 24.1
--- NOTE | 2023-10-04 11:17 | ED_ITS ---
HPI - General Adult General Chief complaint: Hypertension Stated complaint: High BP Time Seen by Provider: 10/04/23 11:00 Source: patient Mode of arrival: Ambulatory History of Present Illness HPI narrative: 83-year-old female presents for elevated blood pressure readings at home. Patient has been seen in the emergency department several times recently. Patient was admitted from 09/27 to 09/28 for a fib with rvr not responsive to IV metoprolol or electric cardioversion. She presented to the emergency department on 09/29 for elevated blood pressure readings. She was evaluated medically in the emergency department and discharged home. She saw her primary care doctor on 10/01, who increased her losartan to 100 mg daily. PCP note states that if BP continues to be elevated then hydrochlorothiazide could be added. Patient took her blood pressure today and it continued to be elevated. She checked it multiple times and each time the number was higher. She called her doctor's office, but she was very concerned that she could not wait for the prescription to be filled and so she came to the emergency department for evaluation. She states that she was told that she could ?stroke out? with her high blood pressures. Patient brought a list of multiple blood pressure readings between yesterday and this morning Related Data Home Medications Medication Instructions Recorded Confirmed metoprolol succinate 25 mg 25 mg PO DAILY 09/28/23 10/02/23 tablet,extended release 24 hr rivaroxaban 20 mg tablet (Xarelto) 20 mg PO DAILY 09/28/23 10/02/23 amiodarone 200 mg tablet 200 mg PO DAILY 09/30/23 10/02/23 Previous Rx's Medication Instructions Recorded cholestyramine (with sugar) 4 gram See Rx Instructions .Route 06/23/22 oral powder .COMPLEX #737.52 grams losartan 100 mg tablet 100 mg PO DAILY #90 tabs 10/02/23 hydrochlorothiazide 12.5 mg tablet 12.5 mg PO DAILY #90 tabs 10/04/23 Allergies Allergy/AdvReac Type Severity Reaction Status Date / Time atenolol [ATENOLOL] Allergy Severe bradycardia Verified 10/02/23 09:17 codeine [CODEINE] Allergy Severe mood change Verified 10/02/23 09:17 sertraline [From ZOLOFT] Allergy Severe vertigo Verified 10/02/23 09:17 venlafaxine [From EFFEXOR] Allergy Severe vertigo Verified 10/02/23 09:17 adhesive tape [ADHESIVE TAPE] Allergy Unknown rash Verified 10/02/23 09:17 Patient History Medical History (Updated 10/04/23 @ 13:55 by Sis Whipple MD) Paroxysmal atrial fibrillation Family history of early CAD Family history of type 2 diabetes mellitus Beta-blockers contraindicated due to bradycardia Hypertension Chronic diarrhea Pseudomonas aeruginosa infection (2017) Ventricular premature beats (01/27/16) Mitral valve insufficiency (02/24/16) Cholelithiasis and cholecystitis without obstruction Family History Father Myocardial infarct Brother Diabetes mellitus Hx of CABG Brother Diabetes mellitus Grandmother Breast cancer Mother Bladder cancer Social History marital status: number of children: 3 household members: spouse lives independently: Yes caregiver/support person: No housing: house Smoking Status: Never smoker second hand exposure: No alcohol intake: current substance use type: does not use Smoking Status: Never smoker alcohol intake frequency: a few times a month Substance Use Type: does not use Exam Initial Vital Signs Initial Vital Signs: Vital Signs Pulse Rate 81 10/04/23 11:02 Pulse Oximetry 94 10/04/23 11:02 Const: Awake, alert, no acute distress, nontoxic appearing Cardiac: regular rate, regular rhythm RESP: unlabored, clear bilaterally, no wheezing Skin: Warm, Dry, intact, no rashes Neuro: AO x3, CN II-XII grossly intact, moves all extremities Course Orders Ordered: Discontinued Medications Clonidine HCl (Clonidine 0.1 Mg Tablet) 0.2 mg PO NOW ONE Stop: 10/04/23 11:48 Last Admin: 10/04/23 12:02 Dose: 0.2 mg Documented By: YA Vital Signs Vital signs: Vital Signs - 8 hr 10/04/23 11:02 10/04/23 11:03 10/04/23 11:03 Temperature Pulse Rate 81 67 Respiratory Rate Blood Pressure 224/111 H Pulse Oximetry 94 97 Oxygen Delivery Method Room Air 10/04/23 11:05 10/04/23 11:30 10/04/23 11:35 Temperature 98.3 F Pulse Rate 67 64 Respiratory Rate 18 Blood Pressure 224/111 H 223/105 H Pulse Oximetry 98 97 Oxygen Delivery Method Room Air 10/04/23 11:35 10/04/23 12:00 10/04/23 12:00 Temperature Pulse Rate 62 63 Respiratory Rate 20 Blood Pressure 212/109 H Pulse Oximetry 100 100 Oxygen Delivery Method Room Air 10/04/23 12:02 10/04/23 12:07 10/04/23 12:07 Temperature Pulse Rate 71 63 Respiratory Rate 22 Blood Pressure 212/109 H 220/106 H Pulse Oximetry 99 Oxygen Delivery Method 10/04/23 12:30 10/04/23 12:30 10/04/23 13:00 Temperature Pulse Rate 52 L 48 L Respiratory Rate 12 13 Blood Pressure 199/95 H Pulse Oximetry 98 Oxygen Delivery Method 10/04/23 13:01 10/04/23 13:01 10/04/23 13:15 Temperature Pulse Rate 50 L 53 L Respiratory Rate 16 16 Blood Pressure 157/80 H Pulse Oximetry 94 98 Oxygen Delivery Method 10/04/23 13:15 10/04/23 13:30 10/04/23 13:30 Temperature Pulse Rate 50 L Respiratory Rate 21 Blood Pressure 142/81 H 149/82 H Pulse Oximetry 97 Oxygen Delivery Method 10/04/23 13:45 10/04/23 13:45 Temperature Pulse Rate 51 L Respiratory Rate 18 Blood Pressure 149/85 H Pulse Oximetry 97 Oxygen Delivery Method Medical Decision Making [facility] Narrative Medical decision making narrative: Patient concerned about elevated blood pressure readings at home. No other symptoms. She has already been medically evaluated several times over the last few days, most recently on 09/29. Patient was very concerned that she can not wait to machine operator picker the new prescription due to elevated blood pressure readings. No indication for any repeat blood work or imaging at this time. Patient was gi darwin a dose of clonidine in the emergency department. Patient was observed and did have decrease in blood pressure. Some bradycardia, resting heart rate is about 60 beats per minute per patient report. Patient had asymptomatic pulse in the 50s. Patient was able to ambulate without difficulty with nursing staff. Patient was counseled that she should not obsessively check her blood pressure as this can cause elevations due to stress and anxiety. PCP follow up advised. Discharge Plan Departure Patient Disposition: Home Clinical Impression: Hypertension Instructions: DI for High Blood Pressure Activity Restrictions/Additional Instructions: Take the newly prescribed hydrochlorothiazide from your primary care doctor's office. No medication changes made from the emergency department at this time. Prescriptions: No Action losartan 100 mg tablet 100 mg PO DAILY Qty: 90 3RF hydrochlorothiazide 12.5 mg tablet 12.5 mg PO DAILY Qty: 90 0RF cholestyramine (with sugar) 4 gram powder See Rx Instructions .ROUTE .COMPLEX Qty: 737.52 1RF Dose Instruction: MIX 1 SCOOPFUL (4 GRAMS) IN LIQUID AND DRINK 2X/DAY WITH MEAL. AVOID OTHER MEDS WITHIN 1 HOUR BEFORE OR 4-6 HOURS AFTER DOSE Rx Instructions: MIX 1 SCOOPFUL (4 GRAMS) IN LIQUID AND DRINK 2X/DAY WITH FOOD. AVOID OTHER MEDS WITHIN 1 HOUR BEFORE OR 4-6 HOURS AFTER DOSE amiodarone 200 mg tablet 200 mg PO DAILY Xarelto 20 mg tablet 20 mg PO DAILY metoprolol succinate 25 mg Tablet Extended Release 24 Hr 25 mg PO DAILY Referrals: Monae Espinosa MD [Primary Care Provider] - Stand Alone Forms: Patient Portal/API
[2023-10-04] MEDS: cloNIDine 0.1 MG TABLET 0.2 MG PO (12:02)
--- NOTE | 2023-10-04 12:21 | PC.NURSE ---
This patient reports to the department with concern for her high BP 224/111, the patient reports having some chest tightness last night and this morning but she also reports that she just had COVID and it could be from that. patient otherwise reports feeling normal just concerned with her high BP numbers. Gave 0.2 clonidine, see MAR
--- NOTE | 2023-10-04 12:45 | PC.NURSE ---
patients HR is 51 while resting, provider notified and will continue to monitor
== END 2023-10-04 14:00 | disposition home or self-care (01) ==
PROVIDERS: Emergency Provider Emergency Medicine; Family Provider Physical Medicine & Rehabilitation Pain Medicine; PCP Family Medicine
DX: I10 Essential (primary) hypertension (principal)
CPT/HCPCS: 99283

== ENCOUNTER → 2023-10-12 09:32 | Outpatient (CLI) | payer MEDICARE, OTHER, SELFPAY ==
[2023-09-28 13:25] VITALS: BMI 24.8
== END ==
PROVIDERS: Family Provider Physical Medicine & Rehabilitation Pain Medicine; PCP Family Medicine; Referring Provider Internal Medicine Cardiovascular Disease; Visit Provider Internal Medicine Cardiovascular Disease
DX: Z79.899 Other long term (current) drug therapy (principal); I48.0 Paroxysmal atrial fibrillation
CPT/HCPCS: 94060; 94726; 94729

== ENCOUNTER 2023-10-12 20:31 | Emergency (ER) | payer MEDICARE, OTHER, SELFPAY ==
[2023-09-28 13:25] VITALS: BMI 24.8
[2023-10-12] VITALS (12 sets, daily range): BP systolic 165–205; BP diastolic 80–100; PULSE 56–65; RESP 11–37; O2SAT 96–98
--- NOTE | 2023-10-12 20:39 | DI.RAD.S_ITS ---
PROCEDURE: XR CHEST 1V INDICATIONS: chest pain TECHNIQUE: One view of the chest was acquired. COMPARISON: [facility], CR, XR CHEST 1V, 09/30/2023, 17:19. [facility], CR, XR CHEST 1V, 09/28/2023, 2:35. FINDINGS: Surgical changes and devices: None. Lungs and pleura: Mildly prominent interstitium. No dense airspace disease or pleural effusion. Mediastinum: Normal heart size Bones and chest wall: Degenerative changes IMPRESSION: Mildly prominent interstitium, possibly senescent lung markings versus atypical infection No dense airspace disease. Dictated by: Barak Hillman M.D. on 10/12/2023 at 21:50 Approved by: Barak Hillman M.D. on 10/12/2023 at 21:51
--- NOTE | 2023-10-12 20:39 | EKG_ITS ---
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
[2023-10-12 20:48] LABS: Add Manual Diff / Slide Review NO; Basophils Absolute Auto 100 /uL (0-100); Basophils Percent Auto 0.5 % (0-2); Eosinophils Absolute Auto 200 /uL (0-450); Eosinophils Percent Auto 1.5 % (2-4); Hematocrit 38.3 % (36-46); Lymphocytes Absolute Auto 1700 /uL (1100-4500); Lymphocytes Percent Auto 16.4 % (25-40); Mean Corpuscular HGB Conc 33.9 % (30-36); Mean Corpuscular Hemoglobin 31.4 PG (26-34); Mean Corpuscular Volume 92.6 fL (80-100); Monocytes Absolute Auto 900 /uL (0-900); Monocytes Percent Auto 8.7 % (3-14); Neutrophils Absolute Auto 7300 /uL (1500-7000); Neutrophils Percent Auto 72.9 % (50-75); Platelet Count 468 X10^3/uL (150-400); Red Blood Cell Count 4.14 X10^6/uL (4.0-5.2); Red Cell Distribution Width 14.2 % (11.6-14.8); White Blood Cell Count 10.1 X10^3/uL (4.5-11.0)
[2023-10-12 20:50] LABS: Prothrombin Time 34.8 SECONDS (9.4-12.5)
[2023-10-12 20:56] LABS: Alanine Aminotransferase 14 IU/L (<35); Albumin 4.3 g/dL (3.5-5.0); Albumin Globulin Ratio 1.4 (1.0-2.8); Alkaline Phosphatase 95 U/L (38-126); Aspartate Aminotransferase 16 IU/L (14-36); BUN Creatinine Ratio 16.5 (6-22); Bilirubin Total 1.1 mg/dL (0.2-1.3); Blood Urea Nitrogen 20 mg/dL (7-17); Calcium 9.2 mg/dL (8.4-10.2); Carbon Dioxide 22 mmol/L (22-32); Chloride 102 mmol/L (98-107); Creatine Kinase 74 U/L (30-135); Estimated Glomerular Filt Rate 44 mL/min (>60); Glucose 107 mg/dL (80-110); HEMOLYSIS < 15 (0-50); Lipase 108 U/L (23-300); Magnesium 2.1 mg/dL (1.6-2.3); Potassium 3.1 mmol/L (3.4-5.1); Sodium 133 mmol/L (137-145); Total Protein 7.3 g/dL (6.3-8.2)
[2023-10-12 21:07] LABS: NT-proBNP (BNP-Adult 18+) 555 pg/mL (<450); Troponin I < 0.012 ng/mL (0.01-0.034)
[2023-10-12 21:11] LABS: PTT Partial Thromboplastin Tim 86 SECONDS (25.1-36.5)
[2023-10-12] MEDS: HYDRALAZINE 20 MG/ML VIAL 10 MG IV (21:27)
--- NOTE | 2023-10-12 22:03 | ED_ITS ---
HPI - General Adult General Chief complaint: Hypertension Stated complaint: HTN, chest pressure, SOB Time Seen by Provider: 10/12/23 20:41 Source: patient Mode of arrival: EMS History of Present Illness HPI narrative: 83-year-old female with history of atrial fibrillation on amiodarone, hypertension presents by EMS from home for hypertension. Patient states that she has been lightheaded all day long. She states that she was sitting at home when ?I could feel my blood pressure rising?. She states it started as systolic 160, and subsequent measurements continued to be higher until her blood pressure was over 200 systolic and she called 911. Also reported some shortness of breath, however this resolved on the way to the emergency department when she was in the ambulance. Of note, patient has been to this emergency department numerous times for elevated blood pressure readings. She is followed by Cardiology, her primary care doctor, multiple medication changes have been made. Patient normally lives with her , however he is out of town on a vacation this weekend, and she states she is afraid of what can happen being alone. Related Data Home Medications Medication Instructions Recorded Confirmed metoprolol succinate 25 mg 25 mg PO DAILY 09/28/23 10/02/23 tablet,extended release 24 hr rivaroxaban 20 mg tablet (Xarelto) 20 mg PO DAILY 09/28/23 10/02/23 amiodarone 200 mg tablet 200 mg PO DAILY 09/30/23 10/02/23 Previous Rx's Medication Instructions Recorded cholestyramine (with sugar) 4 gram See Rx Instructions .Route 06/23/22 oral powder .COMPLEX #737.52 grams losartan 100 mg tablet 100 mg PO DAILY #90 tabs 10/02/23 hydrochlorothiazide 12.5 mg tablet 12.5 mg PO DAILY #90 tabs 10/04/23 Allergies Allergy/AdvReac Type Severity Reaction Status Date / Time atenolol [ATENOLOL] Allergy Severe bradycardia Verified 10/02/23 09:17 codeine [CODEINE] Allergy Severe mood change Verified 10/02/23 09:17 sertraline [From ZOLOFT] Allergy Severe vertigo Verified 10/02/23 09:17 venlafaxine [From EFFEXOR] Allergy Severe vertigo Verified 10/02/23 09:17 adhesive tape [ADHESIVE TAPE] Allergy Unknown rash Verified 10/02/23 09:17 Patient History Medical History Paroxysmal atrial fibrillation Family history of early CAD Family history of type 2 diabetes mellitus Beta-blockers contraindicated due to bradycardia Hypertension Chronic diarrhea Pseudomonas aeruginosa infection (2017) Ventricular premature beats (01/27/16) Mitral valve insufficiency (02/24/16) Cholelithiasis and cholecystitis without obstruction Family History Father Myocardial infarct Brother Diabetes mellitus Hx of CABG Brother Diabetes mellitus Grandmother Breast cancer Mother Bladder cancer Social History marital status: number of children: 3 household members: spouse lives independently: Yes caregiver/support person: No housing: house Smoking Status: Never smoker second hand exposure: No alcohol intake: current substance use type: does not use Smoking Status: Never smoker alcohol intake frequency: a few times a month Substance Use Type: does not use Exam Initial Vital Signs Initial Vital Signs: Vital Signs Pulse Rate 65 10/12/23 20:40 Respiratory Rate 14 10/12/23 20:40 Blood Pressure 205/100 H 10/12/23 20:40 Pulse Oximetry 97 10/12/23 20:40 Oxygen Delivery Method Room Air 10/12/23 20:40 Const: Awake, alert, no acute distress, nontoxic appearing Cardiac: regular rate, regular rhythm RESP: unlabored, clear bilaterally, no wheezing GI: Soft, nontender, nondistended, no rebound, no guarding MSK: Atraumatic, full range of motion, pulses equal Skin: Warm, Dry, intact, no rashes Neuro: AO x3, CN II-XII grossly intact, moves all extremities Course Orders Ordered: Discontinued Medications Hydralazine HCl (Hydralazine 20 Mg/Ml Vial) 10 mg IV NOW ONE Stop: 10/12/23 21:20 Last Admin: 10/12/23 21:27 Dose: 10 mg Documented By: RAKEL Potassium Chloride (Potassium Chloride 20 Meq Tab) 40 meq PO NOW ONE Stop: 10/12/23 23:40 Last Admin: 10/12/23 23:47 Dose: 40 meq Documented By: RAKEL Vital Signs Vital signs: Vital Signs - 8 hr 10/12/23 22:30 10/12/23 22:31 10/12/23 22:31 Pulse Rate 62 62 Respiratory Rate 11 L 18 Blood Pressure 165/82 H Pulse Oximetry 96 96 10/12/23 23:00 10/12/23 23:00 10/12/23 23:27 Pulse Rate 62 Respiratory Rate 15 Blood Pressure 168/80 H 165/82 H Pulse Oximetry 97 10/12/23 23:30 10/12/23 23:30 Pulse Rate 60 Respiratory Rate 12 Blood Pressure 170/80 H Pulse Oximetry 97 Medical Decision Making Lab Data 10/12/23 20:30 10/12/23 20:30 Labs: Lab Results 10/12/23 Range/Units 20:30 WBC 10.1 (4.5-11.0) X10^3/uL RBC 4.14 (4.0-5.2) X10^6/uL Hgb 13.0 (12.0-16.0) g/dL Hct 38.3 (36-46) % MCV 92.6 (80-100) fL MCH 31.4 (26-34) PG MCHC 33.9 (30-36) % RDW 14.2 (11.6-14.8) % Plt Count 468 H (150-400) X10^3/uL Neut % (Auto) 72.9 (50-75) % Lymph % (Auto) 16.4 L (25-40) % Valley % (Auto) 8.7 (3-14) % Eos % (Auto) 1.5 L (2-4) % Baso % (Auto) 0.5 (0-2) % Neut # (Auto) 7300 H (9534-1160) /uL Lymph # (Auto) 1700 (0714-8425) /uL Valley # (Auto) 900 (0-900) /uL Eos # (Auto) 200 (0-450) /uL Baso # (Auto) 100 (0-100) /uL PT 34.8 H (9.4-12.5) SECONDS INR 3.0 H (0.9-1.3) APTT 86 H* (25.1-36.5) SECONDS Sodium 133 L (137-145) mmol/L Potassium 3.1 L (3.4-5.1) mmol/L Chloride 102 (98-107) mmol/L Carbon Dioxide 22 (22-32) mmol/L BUN 20 H (7-17) mg/dL Creatinine 1.21 H (0.52-1.04) mg/dL Estimated GFR 44 L (>60) mL/min BUN/Creatinine Ratio 16.5 (6-22) Glucose 107 (80-110) mg/dL Calcium 9.2 (8.4-10.2) mg/dL Magnesium 2.1 (1.6-2.3) mg/dL Total Bilirubin 1.1 (0.2-1.3) mg/dL AST 16 (14-36) IU/L ALT 14 (<35) IU/L Alkaline Phosphatase 95 (38-126) U/L Total Creatine Kinase 74 (30-135) U/L Troponin I < 0.012 (0.01-0.034) ng/mL NT-Pro-B Natriuret Pep 555 H (<450) pg/mL Total Protein 7.3 (6.3-8.2) g/dL Albumin 4.3 (3.5-5.0) g/dL Globulin 3.0 (1.7-4.1) g/dL Albumin/Globulin Ratio 1.4 (1.0-2.8) Lipase 108 (23-300) U/L Imaging Data Chest x-ray: Radiologist's Impression: PROCEDURE: XR CHEST 1V INDICATIONS: chest pain TECHNIQUE: One view of the chest was acquired. COMPARISON: [facility], , XR CHEST 1V, 09/30/2023, 17:19. [facility], , XR CHEST 1V, 09/28/2023, 2:35. FINDINGS: Surgical changes and devices: None. Lungs and pleura: Mildly prominent interstitium. No dense airspace disease or pleural effusion. Mediastinum: Normal heart size Bones and chest wall: Degenerative changes IMPRESSION: Mildly prominent interstitium, possibly senescent lung markings versus atypical infection No dense airspace disease. Dictated by: Barak Hillman M.D. on 10/12/2023 at 21:50 Approved by: Barak Hillman M.D. on 10/12/2023 at 21:51 ECG Data Interpretation: Normal sinus rhythm at 61 beats per minute. No change from priors. Normal [place] MDM Narrative Additional Information: Elevated blood pressure readings at home. Brief chest pain and shortness of breath, resolved EN route to the emergency department, patient has been asymptomatic since that time. Patient has been seen numerous times in the emergency department for elevated blood pressure readings. She has been counseled on measures that she may take and has also followed up with primary care doctor. I do suspect there may be some component of anxiety contributing to patient's blood pressure is, particularly in the setting of being alone in her house this weekend. Laboratory work reviewed, patient has very slight increasing creatinine and decreasing GFR, however not significantly changed from previous. Potassium 3.1, given oral repletion. Troponin undetectable. Discussed case with patient's internal sales engineer, who stated that they would make a note in their chart to have the patient seen for an appointment. We will increase patient's hydrochlorothiazide from 12.5-25 mg. PCP and cardiology follow up advised. Discharge Plan Departure Patient Disposition: Home Clinical Impression: Hypertension Instructions: DI for High Blood Pressure Activity Restrictions/Additional Instructions: I recommend increasing your hydrochlorothiazide from 12.5 mg to 25 mg daily. If your blood pressure is still high you can increase this to 50 mg daily. I called your internal sales engineer's office, they told me that they would write down a note to make sure that you were seen in clinic, but make sure that you reach out to them to make sure that you can make a follow up appointment. Your potassium was slightly low today. We gave you a supplement today, but I recommend eating potassium rich foods for the next several days. Prescriptions: No Action losartan 100 mg tablet 100 mg PO DAILY Qty: 90 3RF hydrochlorothiazide 12.5 mg tablet 12.5 mg PO DAILY Qty: 90 0RF cholestyramine (with sugar) 4 gram powder See Rx Instructions .ROUTE .COMPLEX Qty: 737.52 1RF Dose Instruction: MIX 1 SCOOPFUL (4 GRAMS) IN LIQUID AND DRINK 2X/DAY WITH MEAL. AVOID OTHER MEDS WITHIN 1 HOUR BEFORE OR 4-6 HOURS AFTER DOSE Rx Instructions: MIX 1 SCOOPFUL (4 GRAMS) IN LIQUID AND DRINK 2X/DAY WITH FOOD. AVOID OTHER MEDS WITHIN 1 HOUR BEFORE OR 4-6 HOURS AFTER DOSE amiodarone 200 mg tablet 200 mg PO DAILY Xarelto 20 mg tablet 20 mg PO DAILY metoprolol succinate 25 mg Tablet Extended Release 24 Hr 25 mg PO DAILY Referrals: Monae Espinosa MD [Primary Care Provider] - Stand Alone Forms: Patient Portal/API
[2023-10-12] MEDS: POTASSIUM CHLORIDE 20 MEQ TAB 40 MEQ PO (23:47)
== END 2023-10-13 00:06 | disposition home or self-care (01) ==
PROVIDERS: Emergency Provider Emergency Medicine; Family Provider Physical Medicine & Rehabilitation Pain Medicine; PCP Family Medicine
DX: I10 Essential (primary) hypertension (principal); R07.9 Chest pain, unspecified
CPT/HCPCS: 36415; 71045; 80053; 82550; 83690; 83735; 83880; 84484; 85025; 85610; 85730; 93005; 94060; 94726; 94729; 96374; 99284; J0360

== ENCOUNTER → 2023-10-29 08:28 | Outpatient (CLI) | payer MEDICARE, OTHER, SELFPAY ==
[2023-09-28 13:25] VITALS: BMI 24.8
[2023-10-29 10:12] LABS: BUN Creatinine Ratio 19.4 (6-22); Blood Urea Nitrogen 25 mg/dL (7-17); Calcium 9.2 mg/dL (8.4-10.2); Carbon Dioxide 24 mmol/L (22-32); Chloride 100 mmol/L (98-107); Estimated Glomerular Filt Rate 41 mL/min (>60); Glucose 105 mg/dL (80-110); HEMOLYSIS < 15 (0-50); Sodium 133 mmol/L (137-145)
== END ==
PROVIDERS: Family Provider Physical Medicine & Rehabilitation Pain Medicine; PCP Family Medicine; Referring Provider Internal Medicine Cardiovascular Disease; Visit Provider Internal Medicine Cardiovascular Disease
DX: I48.0 Paroxysmal atrial fibrillation (principal); I10 Essential (primary) hypertension
CPT/HCPCS: 36415; 80048

== ENCOUNTER → 2023-12-17 08:33 | Outpatient (CLI) | payer MEDICARE, OTHER, SELFPAY ==
[2023-09-28 13:25] VITALS: BMI 24.8
--- NOTE | 2023-12-17 09:18 | DI.MRI.S_ITS ---
PROCEDURE: MR LUMBAR SPINE WO CON INDICATIONS: SPINAL STENOSIS/LOW BACK PAIN W/LEG PAIN TECHNIQUE: Noncontrast sagittal T1 spin echo and T2 fast echo, sagittal STIR, and T2 fast spin echo through the lumbar spine. In cases with scoliosis, additional coronal T2 fast spin echo may be performed. COMPARISON: [facility], CR, XR LUMBAR SPINE WITH OBLIQUES PLUS FLEXION EXTENSION, 10/03/2022, 11:14. [facility], , MR LUMBAR SPINE WO CON, 12/12/2018, 11:13. FINDINGS: Image quality: This examination is limited by involuntary motion artifact. Alignment and Curvature: There is [id number] dextroconvex lumbar scoliosis. There is minimal retrolisthesis at L1-L2 and L2-L3. Mild grade 1 anterolisthesis is seen at the L4-L5 level. Bone Marrow: Marrow is of normal overall signal. No acute vertebral body compression fractures. Spinal Cord: Conus medullaris terminates at the L1 level. Visualized cord demonstrates normal signal and size. Paraspinous Soft Tissues: No paravertebral masses. T12-L1: The disc height and disc signal are relatively well-preserved. Mild disc bulge is seen, which is eccentric to the right. There is a mild central disc osteophyte protrusion. Mild facet joint hypertrophy is seen. No significant neural foraminal or central canal narrowing can be seen. L1-L2: Moderate loss of disc height is seen. Loss of disc signal is seen. Reactive marrow endplate changes are seen, which are hyperintense on T1-weighted and T2-weighted imaging and most consistent with fatty metaplasia (Modic type II changes). Moderate disc bulge is seen, which is eccentric to the left. Bridging endplate osteophytes are seen on the left, as on series 3, image 7. Mild facet joint hypertrophy is seen. There is moderate left-sided and no right-sided neural foraminal narrowing. Mild central canal narrowing is seen. No significant change compared to the 2019 images. L2-L3: Moderate loss of disc height is seen. Loss of disc signal is seen. Moderate disc bulge is seen, which is eccentric to the left. Bridging endplate osteophytes are seen on the left, as on series 3, image 6. Mild facet joint hypertrophy is seen. There is moderate left-sided and no significant right-sided neural foraminal narrowing. No central canal narrowing is seen. When comparison is made with the prior images, these findings are similar. L3-L4: At least moderate loss of disc height and disc signal can be seen. Reactive marrow endplate changes are seen which are hypointense on T1-weighted imaging and hyperintense on T2 weighted imaging, which is most consistent with edema (Modic type I changes). Moderate generalized disc bulge is seen. At least moderate facet hypertrophy can be seen, right worse than left. There is moderate to severe left-sided and there is moderate right-sided neural foraminal narrowing. There is a degree of compression seen upon the exiting left L3 nerve root. Moderate central canal narrowing is seen. There is mild progression compared to 2019. L4-L5: At least moderate loss of disc height and disc signal can be seen. Reactive marrow endplate changes are seen, which are hyperintense on T1-weighted and T2-weighted imaging and most consistent with fatty metaplasia (Modic type II changes). Moderate disc bulge is seen, which is eccentric to the right. Bridging endplate osteophytes can be seen on the right, as on series 3, image 6. Moderate facet joint hypertrophy is seen. There is wfvg-fo-gklzxwbm left-sided and moderate right-sided neural foraminal narrowing. Moderate central canal narrowing is seen. When comparison is made with the prior images, these findings are similar. L5-S1: Moderate loss of disc height is seen. Loss of disc signal is seen. Reactive marrow endplate changes are seen, which are hyperintense on T1-weighted and T2-weighted imaging and most consistent with fatty metaplasia (Modic type II changes). Moderate disc bulge is seen, which is eccentric to the right. Moderate facet joint hypertrophy is seen. There is at least moderate right-sided neural foraminal narrowing, with a degree of compression upon the exiting right L5 nerve root. There is no significant left-sided neural foraminal narrowing. Minimal central canal narrowing is seen. When comparison is made with the prior images, these findings are similar. IMPRESSION: Multiple levels of lumbar spine degenerative change can be seen, which are mildly progressed at the L3-L4 level compared to 2019. Otherwise, the degenerative changes appear similar. Fxlf-sp-oygjqvke dextroconvex lumbar scoliosis can be seen. Dictated by: Brendan Mcmullen M.D. on 12/17/2023 at 11:48 Approved by: Brendan Mcmullen M.D. on 12/17/2023 at 12:06
== END ==
PROVIDERS: Family Provider Physical Medicine & Rehabilitation Pain Medicine; PCP Family Medicine; Referring Provider Physical Medicine & Rehabilitation Pain Medicine; Visit Provider Physical Medicine & Rehabilitation Pain Medicine
DX: M48.062 Spinal stenosis, lumbar region with neurogenic claudication (principal); M47.816 Spondylosis without myelopathy or radiculopathy, lumbar region; M47.817 Spondylosis without myelopathy or radiculopathy, lumbosacral region; M41.9 Scoliosis, unspecified
CPT/HCPCS: 72148

== ENCOUNTER → 2024-09-11 15:09 | Outpatient (CLI) | payer MEDICARE, OTHER, SELFPAY ==
[2024-06-02 13:47] VITALS: BMI 24.8
--- NOTE | 2024-09-11 15:11 | DI.RAD.S_ITS ---
PROCEDURE: XR LUMBAR SPINE MIN 4V INDICATIONS: BACK PAIN TECHNIQUE: 5 views of the lumbar spine were acquired, including bilateral oblique views. COMPARISON: None. FINDINGS: Bones: 5 nonrib-bearing vertebrae are present. Dextroscoliotic curvature. Decreased osseous mineralization which limits evaluation for acute fractures. No vertebral body compression fractures. No suspicious bony lesions. There is multilevel facet arthropathy, worse at L4-5 and L5-S1. Mild multilevel disc height loss with degenerative endplate changes and spurring is present. Soft tissues: Overlying bowel gas pattern is normal. No suspicious soft tissue calcifications. Oblique images: No definite pars defects, however degenerative changes and scoliosis significantly limited evaluation. IMPRESSION: Multilevel degenerative changes of the lumbar spine with dextroscoliotic curvature. Decreased osseous mineralization limits evaluation for fractures. Dictated by: Efrain Villarreal M.D. on 09/11/2024 at 17:02 Approved by: Efrain Villarreal M.D. on 09/11/2024 at 17:03
== END ==
LOC: RAD 15:10
PROVIDERS: Family Provider Physical Medicine & Rehabilitation Pain Medicine; PCP Family Medicine; Referring Provider Physical Medicine & Rehabilitation; Visit Provider Physical Medicine & Rehabilitation
DX: M47.816 Spondylosis without myelopathy or radiculopathy, lumbar region (principal); M47.817 Spondylosis without myelopathy or radiculopathy, lumbosacral region; M43.8X6 Other specified deforming dorsopathies, lumbar region; M54.9 Dorsalgia, unspecified
CPT/HCPCS: 72110

== ENCOUNTER 2024-10-07 10:37 | Emergency (ER) | payer MEDICARE, OTHER, SELFPAY ==
[2024-06-02 13:47] VITALS: BMI 24.8
[2024-10-07 10:59] VITALS: BP 117/68; PULSE 67; RESP 17; TEMP 36.4; O2SAT 99; BMI 25.8
--- NOTE | 2024-10-07 11:06 | DI.CT.S_ITS ---
PROCEDURE: CT HEAD/BRAIN WO CON INDICATIONS: FALL ON THINNERS. HIT HEAD TECHNIQUE: Noncontrast 4.5 mm thick angled axial sections acquired from the foramen magnum to the vertex, with coronal and sagittal reformats. For radiation dose reduction, the following was used: automated exposure control, adjustment of mA and/or kV according to patient size. COMPARISON: [facility], CT, CT CERVICAL SPINE WO CON, 10/07/2024, 11:10. FINDINGS: Image quality: Streak artifact can be seen through the skull base. CSF spaces: Basal cisterns are patent. No extra-axial fluid collections. The ventricles are symmetric in size and shape. Brain: No intracranial bleeds or mass effect. There is cerebral volume loss, with resultant ventricular and sulcal prominence. There are periventricular and deep white matter chronic small vessel ischemic changes. There is intracranial internal carotid artery atherosclerosis. Skull and face: Calvarium and visualized facial bones appear intact, without suspicious lesions. Incidental note is made of hyperostosis frontalis. This is not considered to be pathologic in a woman of this age. Sinuses: Visualized sinuses and mastoids are clear. IMPRESSION: No acute intracranial hemorrhage is seen. No acute intracranial pathology. Dictated by: Brendan Mcmullen M.D. on 10/07/2024 at 10:16 Approved by: Brendan Mcmullen M.D. on 10/07/2024 at 10:17
--- NOTE | 2024-10-07 11:08 | DI.CT.S_ITS ---
PROCEDURE: CT CERVICAL SPINE WO CON INDICATIONS: fall on thinners. hit head TECHNIQUE: Noncontrast 3 mm thick sections acquired from the skull base to the T4 level. Sagittal and coronal reformats were then constructed. For radiation dose reduction, the following was used: automated exposure control, adjustment of mA and/or kV according to patient size. COMPARISON: None. FINDINGS: Image quality: Diagnostic Bones: Fused appearance of the C3-C4 and C5-C6 vertebral bodies, likely chronic. Moderate to severe cervical spondylosis is present, with multilevel disc space height loss, facet arthropathy, and osteophytes. No acute traumatic subluxation or displaced fracture is seen. Trace anterolisthesis of T1 on T2, likely chronic. Soft tissues: No pathologic prevertebral soft tissue swelling. Vascular calcifications are present. No apical pneumothorax. IMPRESSION: Moderate to severe cervical spondylosis. No acute displaced fracture or traumatic subluxation. If there is high concern for further derangement, consider MRI evaluation. Dictated by: Barak Hillman M.D. on 10/07/2024 at 11:16 Approved by: Barak Hillman M.D. on 10/07/2024 at 11:18
[2024-10-07 11:22] VITALS: BP 181/95; PULSE 65; O2SAT 95
[2024-10-07 11:30] VITALS: BP 172/91; PULSE 60; RESP 11; O2SAT 100
[2024-10-07 12:00] VITALS: BP 182/89; PULSE 62; RESP 15; O2SAT 98
--- NOTE | 2024-10-07 12:06 | DI.RAD.S_ITS ---
PROCEDURE: XR TIBIA FIBULA LT 2V INDICATIONS: fall on thinners. swelling TECHNIQUE: 2 views of the tibia and fibula were acquired. COMPARISON: None. FINDINGS AND IMPRESSION: No acute displaced fracture of the fibular shaft or tibial shaft. Partially seen knee arthroplasty in the medial compartment. Partially seen plantar calcaneal enthesopathy. No suspicious soft tissue calcifications. If there is high concern for occult injury, consider repeat radiography in about 7 days or cross-sectional imaging . Dictated by: Barak Hillman M.D. on 10/07/2024 at 12:35 Approved by: Barak Hillman M.D. on 10/07/2024 at 12:36
--- NOTE | 2024-10-07 12:06 | DI.RAD.S_ITS ---
PROCEDURE: XR SCAPULA LT INDICATIONS: trauma TECHNIQUE: 2 views of the scapula were acquired. COMPARISON: None. FINDINGS AND IMPRESSION: No grossly displaced fracture or dislocation. Epfj-ps-sadnaisg acromioclavicular degenerative changes. The scapula is generally not well assessed by radiography and cross-sectional imaging is suggested if there is sufficient clinical concern. Dictated by: Barak Hillman M.D. on 10/07/2024 at 12:34 Approved by: Barak Hillman M.D. on 10/07/2024 at 12:35
[2024-10-07] MEDS: ACETAMINOPHEN 325 MG TABLET 975 MG PO (13:34)
[2024-10-07 13:36] VITALS: BP 185/95; PULSE 60; RESP 15; O2SAT 96
--- NOTE | 2024-10-07 23:38 | ED.FALL ---
HPI - Fall General Chief Complaint: Trauma Stated Complaint: Fell bruising on left wang x 5 Time Seen by Provider: 10/07/24 11:21 Source: patient and family Mode of arrival: Family Vehicle History of Present Illness HPI Narrative: This 84-year-old female presents to the emergency room in the company of her son who relates that the patient fell in her garden when she lost her balance. She fell into some bushes striking them with her head. She hit her wang hard on the ground when she landed on a rock and she subsequently developed swelling over her wang in the last 2 days. She is on rivaroxaban and held it last night when she saw that her wang with swelling moderately. She is on this medication for atrial fibrillation. Related Data Home Medications ?Medication ?Instructions ?Recorded ?Confirmed metoprolol succinate 25 mg 25 mg PO DAILY 09/28/23 09/17/24 tablet,extended release 24 hr amiodarone 100 mg tablet 100 mg PO DAILY 09/17/24 09/17/24 gabapentin 100 mg capsule 300 mg PO BID 09/17/24 09/17/24 rivaroxaban 15 mg tablet (Xarelto) 15 mg PO DAILY 09/17/24 09/17/24 Previous Rx's ?Medication ?Instructions ?Recorded hydrochlorothiazide 12.5 mg tablet 12.5 mg PO DAILY #90 tabs 12/06/23 cholestyramine (with sugar) 4 gram See Rx Instructions .Route 01/16/24 oral powder .COMPLEX #737.52 grams losartan 100 mg tablet 100 mg PO DAILY #90 tabs 09/26/24 acetaminophen 500 mg capsule 500 mg PO Q6H PRN pain 5 days #20 10/07/24 caps Allergies Allergy/AdvReac Type Severity Reaction Status Date / Time atenolol (ATENOLOL) Allergy Severe bradycardia Verified 10/07/24 11:00 codeine (CODEINE) Allergy Severe mood change Verified 10/07/24 11:00 sertraline (From ZOLOFT) Allergy Severe vertigo Verified 10/07/24 11:00 venlafaxine (From EFFEXOR) Allergy Severe vertigo Verified 10/07/24 11:00 adhesive tape (ADHESIVE TAPE) Allergy Unknown rash Verified 10/07/24 11:00 Review of Systems Constitutional Comments: Negative for headache or severe neck pain. Patient has pain over her left wang. Eyes Eyes: Reports system reviewed and no additional complaints, except as documented ENT Ears, Nose, Mouth, and Throat: Reports system reviewed and no additional complaints, except as documented Cardiovascular Cardiovascular: Reports system reviewed and no additional complaints, except as documented Respiratory Respiratory: Reports system reviewed and no additional complaints, except as documented Gastrointestinal Gastrointestinal: Reports system reviewed and no additional complaints, except as documented Musculoskeletal Comments: Patient reports swelling and pain and bruising over her left wang. There was enough so that she held her rivaroxaban last evening. Neurologic Comments: Patient is alert and can answer questions she had no loss of consciousness. Patient History Medical History (Updated 10/07/24 @ 13:00 by Jenniffer Solo MD) Facet arthropathy, lumbar Spinal stenosis, lumbar region with neurogenic claudication Paroxysmal atrial fibrillation Family history of early CAD Family history of type 2 diabetes mellitus Beta-blockers contraindicated due to bradycardia Hypertension Chronic diarrhea Pseudomonas aeruginosa infection (2016) Ventricular premature beats (01/27/16) Mitral valve insufficiency (02/24/16) Cholelithiasis and cholecystitis without obstruction Family History Father Myocardial infarct Brother Diabetes mellitus Hx of CABG Brother Diabetes mellitus Grandmother Breast cancer Mother Bladder cancer Social History marital status: number of children: 3 household members: spouse lives independently: Yes caregiver/support person: No housing: house Smoking Status: Never smoker second hand exposure: No alcohol intake: current substance use type: does not use Smoking Status: Never smoker alcohol intake frequency: a few times a month Exam Initial Vital Signs Initial Vital Signs: Vital Signs Temperature 97.6 F 10/07/24 10:59 Pulse Rate 67 10/07/24 10:59 Respiratory Rate 17 10/07/24 10:59 Blood Pressure 117/68 10/07/24 10:59 Pulse Oximetry 99 10/07/24 10:59 Oxygen Delivery Method Room Air 10/07/24 10:59 Const Other: The patient fell in her garden and managed to hit her left wang against a rock. She subsequently had swelling over the wang in the last 2 days and held her rivaroxaban. HENMT Head: normal to inspection HENMT Other: This patient fell in her garden and hit her head on some bushes. She denies severe headache or severe neck pain. Neck Other: Nontender range of motion I attempted prior to CT. Chest Chest: normal inspection of the chest Other: Nontender Cardio Rate: regular rate Rhythm: regular rhythm GI Other: Nontender adequate bowel sounds. Back/Spine/Pelvis Back: normal to inspection Sacroiliac Joints: nontender Neuro Other: Alert oriented x3 no focal deficits. Extrem Other: Visible edema and slight ecchymosis over the proximal left pretibial aspect. There is no open wound. There is moderate tenderness over the area. Course Course Course Narrative: This patient has suffered a fall in her garden. She did not appear to have suffered a significant head or neck injury as her CT head cervical spine were negative. She did reveal a moderate hematoma over left pretibial aspect and plain films of this extremity revealed no fracture. She should continue icing the area over the next 2 days and can use an Gerhard bandage around it she tried to compress the swelling. She can resume her rivaroxaban this evening. She is sent home with Tylenol for pain in view of her age. She should follow up as needed in the next 5-7 days. Orders Ordered: Discontinued Medications Acetaminophen (Acetaminophen 325 Mg Tablet) 975 mg PO NOW ONE Stop: 10/07/24 13:31 Last Admin: 10/07/24 13:34 Dose: 975 mg Documented By: ALYSSIA Discharge Plan Departure Patient Disposition: Home Clinical Impression: Contusion of face, scalp and neck, Contusion of left leg Instructions: How to Prevent Falls Activity Restrictions/Additional Instructions: Ice to swelling left wang for 15 minutes 2-4 x daily next 2 days, gerhard bandage next 4 days. Uas Tylenol for pain. Prescriptions: New acetaminophen 500 mg capsule 500 mg PO Q6H PRN (Reason: pain) 5 Days Qty: 20 0RF No Action hydrochlorothiazide 12.5 mg tablet 12.5 mg PO DAILY Qty: 90 0RF cholestyramine (with sugar) 4 gram powder See Rx Instructions .ROUTE .COMPLEX Qty: 737.52 1RF Dose Instruction: MIX 1 SCOOPFUL (4 GRAMS) IN LIQUID AND DRINK 2X/DAY WITH MEAL. AVOID OTHER MEDS WITHIN 1 HOUR BEFORE OR 4-6 HOURS AFTER DOSE Rx Instructions: MIX 1 SCOOPFUL (4 GRAMS) IN LIQUID AND DRINK 2X/DAY WITH FOOD. AVOID OTHER MEDS WITHIN 1 HOUR BEFORE OR 4-6 HOURS AFTER DOSE losartan 100 mg tablet 100 mg PO DAILY Qty: 90 3RF metoprolol succinate 25 mg Tablet Extended Release 24 Hr 25 mg PO DAILY amiodarone 100 mg tablet 100 mg PO DAILY Xarelto 15 mg tablet 15 mg PO DAILY gabapentin 100 mg capsule 300 mg PO BID Referrals: Monae Espinosa MD [Primary Care Provider, Family Practice] Stand Alone Forms: Patient Portal/API
== END 2024-10-07 13:37 | disposition home or self-care (01) ==
PROVIDERS: Emergency Provider Emergency Medicine; Family Provider Physical Medicine & Rehabilitation Pain Medicine; PCP Family Medicine
DX: S00.83XA Contusion of other part of head, initial encounter (principal); S00.03XA Contusion of scalp, initial encounter; S10.93XA Contusion of unspecified part of neck, initial encounter; S80.12XA Contusion of left lower leg, initial encounter; W18.30XA Fall on same level, unspecified, initial encounter; Z79.01 Long term (current) use of anticoagulants
CPT/HCPCS: 36415; 70450; 72125; 73010; 73590; 99284

== ENCOUNTER 2024-10-21 09:31 | Outpatient (CLI) | payer MEDICARE, OTHER, SELFPAY ==
[2024-06-02 13:47] VITALS: BMI 24.8
[2024-10-21] VITALS (7 sets, daily range): BP systolic 129–202; BP diastolic 60–104; PULSE 52–64; RESP 16–18; TEMP 36.4; O2SAT 97–100
[2024-10-21] MEDS: MIDAZOLAM 2 MG/2 ML VIAL IV (11:07)
[2024-10-21] MEDS: BETAMETHASONE 30 MG/5 ML MDV 12 MG INJ (11:11)
--- NOTE | 2024-10-21 11:22 | P.PCN_ITS ---
Date/Time/Diagnoses Date of procedure: 10/21/24 Time of procedure: 11:22 Pre-procedure diagnosis: 1. HNP WITH RADICULAR FEATURES, 2. MULTILEVEL CENTRAL STENOSIS, Post-procedure diagnosis: same Procedure Notes Procedure: 1. FLUOROSCOPICALLY GUIDED CONTRAST CONTROLLED INTERLAMINAR EPIDURAL STEROID INJECTION -L4/5 Indications: Michaela is referred by Dr. Espinosa for treatment of Bilateral Foraminal Stenosis R>L LE symptoms. Physician: Jose Lucas Total sedation minutes: 10 Complications: none Procedure in detail & Post-procedure care: FINDINGS Multilevel Central Spinal Stenosis with Nerve Root Compression DESCRIPTION OF PROCEDURE Fluoroscopically guided, contrast-controlled L4/5 translaminar epidural steroid injection. Following review of allergy and review of potential side effects and complica tions, including, but not necessarily limited to, infection, allergic reaction, local tissue breakdown, temporary as well as permanent nerve injury, paralysis, stroke and possible , the patient indicated that the patient understood and agreed to proceed. An informed consent document was signed by the patient, witnessed by a nurse, and placed in the patient's chart. Additionally, other treatment options including modalities, medications, and physical therapy were reviewed with the patient. After review of previous anaesthesic history and IV conscious sedation the patient was deemed safe to proceed with today?s procedure with IV conscious sedation as ASA class II designation. Safety time-out was performed to confirm patient ID, procedure to be performed and site of procedure. IV sedation was accomplished with a combination of 2mg of Versed was administered by the RN after DO order, titrated to patient comfort during the course of the procedure while the patient remained responsive to all verbal commands In the prone position, following sterile prep and drape of the lumbar region, the L4/5 translaminar space was identified fluoroscopically. The skin was anesthetized via a 25-gauge, 1.5inch needle with 1% lidocaine solution. At this point, a 22-gauge short bevel spinal needle was atraumatically introduced and advanced under fluoroscopic guidance into the region of the L4/5 translaminar space. Depth was confirmed on lateral view. Radiological data, including multiple fluoroscopic views of the lumbar spine, reveal a spinal needle at the L4/5 translaminar space. Lateral views then show placement of the needle in the epidural space. Subsequent views show contrast material flowing superiorly and inferiorly in the epidural space. No vascular or intrathecal uptake is observed. At this point, using loss of resistance technique with saline and air, the epidural space was entered. This was confirmed following negative aspiration with injection of approximately 1.5cc of Isovue 200, showing excellent epidural flow without vascular or intrathecal uptake. At this point, 1cc of 0.25% marcaine solution combined with 3cc or 10mg of dexamethasone and 12mg beta methasone was injected without incident. The patient tolerated the procedure well without signs or symptoms of complications prior to transfer to the recovery area continued monitoring without incident. The patient was then transferred to the recovery area where they were observed for an appropriate period of time after the injection. The patient reported a VAS score of 6 prior to the procedure and a post- procedure VAS of 0. POST OP INSTRUCTIONS The patient was provided a Pain Log to continue to record their response to the target-specific procedure prior to follow-up visit with their referring physician. Additionally, specific post-injection care instructions and a contact number to our office were provided if concerns arise regarding possible complica tions associated with the procedure are suspected.
== END 2024-10-21 11:34 | disposition home or self-care (01) ==
PROVIDERS: Family Provider Physical Medicine & Rehabilitation Pain Medicine; PCP Family Medicine; Referring Provider Physical Medicine & Rehabilitation; Visit Provider Physical Medicine & Rehabilitation
DX: M51.16 Intervertebral disc disorders with radiculopathy, lumbar region (principal); M48.062 Spinal stenosis, lumbar region with neurogenic claudication
CPT/HCPCS: 62323; 99152; J0702; J1100; J2250

== ENCOUNTER → 2024-12-12 09:01 | Outpatient (CLI) | payer MEDICARE, OTHER, SELFPAY ==
[2024-06-02 13:47] VITALS: BMI 24.8
[2024-12-12 10:39] LABS: Microalbumi Creatinin Ratio Ur 11.0 ug/mg CR (<30)
[2024-12-12 12:02] LABS: Cholesterol 196 mg/dL (140-199); HDL Cholesterol 67 mg/dL (40-60); Triglycerides 111 mg/dL (35-150)
== END ==
LOC: LAB 09:02
PROVIDERS: PCP Family Medicine; Referring Provider Family Medicine; Visit Provider Family Medicine
DX: I10 Essential (primary) hypertension (principal)
CPT/HCPCS: 36415; 80061; 82043; 82570

== ENCOUNTER 2025-02-24 13:09 | Outpatient (CLI) | payer MEDICARE, OTHER, SELFPAY ==
[2024-06-02 13:47] VITALS: BMI 24.8
[2025-02-24] VITALS (7 sets, daily range): BP systolic 105–156; BP diastolic 60–85; PULSE 56–61; RESP 14–16; TEMP 36.2; O2SAT 96–100
[2025-02-24] MEDS: MIDAZOLAM 2 MG/2 ML VIAL IV (14:45)
[2025-02-24] MEDS: BETAMETHASONE 30 MG/5 ML MDV 12 MG INJ (14:49)
--- NOTE | 2025-02-24 14:59 | P.PCN_ITS ---
Date/Time/Diagnoses Date of procedure: 02/24/25 Time of procedure: 14:59 Pre-procedure diagnosis: 1. HNP WITH RADICULAR FEATURES, 2. MULTILEVEL CENTRAL STENOSIS, Post-procedure diagnosis: same Procedure Notes Procedure: 1. FLUOROSCOPICALLY GUIDED CONTRAST CONTROLLED INTERLAMINAR EPIDURAL STEROID INJECTION -L4/5 Indications: Michaela is referred by Dr. Espinosa for treatment of Bilateral Foraminal Stenosis R>L LE symptoms. Physician: Jose Lucas Total Fluoroscopy time (seconds): 5 Total sedation minutes: 11 Complications: none Procedure in detail & Post-procedure care: FINDINGS Multilevel Central Spinal Stenosis with Nerve Root Compression DESCRIPTION OF PROCEDURE Fluoroscopically guided, contrast-controlled L4/5 translaminar epidural steroid injection. Following review of allergy and review of potential side effects and complications, including, but not necessarily limited to, infection, allergic reaction, local tissue breakdown, temporary as well as permanent nerve injury, paralysis, stroke and possible , the patient indicated that the patient understood and agreed to proceed. An informed consent document was signed by the patient, witnessed by a nurse, and placed in the patient's chart. Additionally, other treatment options including modalities, medications, and physical therapy were reviewed with the patient. After review of previous anaesthesic history and IV conscious sedation the patient was deemed safe to proceed with today?s procedure with IV conscious sedation as ASA class II designation. Safety time-out was performed to confirm patient ID, procedure to be performed and site of procedure. IV sedation was accomplished with a combination of 2mg of Versed was administered by the RN after DO order, titrated to patient comfort during the course of the procedure while the patient remained responsive to all verbal commands In the prone position, following sterile prep and drape of the lumbar region, the L4/5 translaminar space was identified fluoroscopically. The skin was anesthetized via a 25-gauge, 1.5inch needle with 1% lidocaine solution. At this point, a 22-gauge short bevel spinal needle was atraumatically introduced and a dvanced under fluoroscopic guidance into the region of the L4/5 translaminar space. Depth was confirmed on lateral view. Radiological data, including multiple fluoroscopic views of the lumbar spine, reveal a spinal needle at the L4/5 translaminar space. Lateral views then show placement of the needle in the epidural space. Subsequent views show contrast material flowing superiorly and inferiorly in the epidural space. No vascular or intrathecal uptake is observed. At this point, using loss of resistance technique with saline and air, the epidural space was entered. This was confirmed following negative aspiration with injection of approximately 1.5cc of Isovue 200, showing excellent epidural flow without vascular or intrathecal uptake. At this point, 1cc of 0.25% marcaine solution combined with 3cc or 10mg of dexamethasone and 12mg betamethasone was injected without incident. The patient tolerated the procedure well without signs or symptoms of complications prior to transfer to the recovery area continued monitoring without incident. The patient was then transferred to the recovery area where they were observed for an appropriate period of time after the injection. The patient reported a VAS score of 6 prior to the procedure and a post- procedure VAS of 0. POST OP INSTRUCTIONS The patient was provided a Pain Log to continue to record their response to the target-specific procedure prior to follow-up visit with their referring physician. Additionally, specific post-injection care instructions and a contact number to our office were provided if concerns arise regarding possible complications associated with the procedure are suspected.
== END 2025-02-24 15:17 | disposition home or self-care (01) ==
LOC: RAD 13:09
PROVIDERS: PCP Family Medicine; Referring Provider Physical Medicine & Rehabilitation; Visit Provider Physical Medicine & Rehabilitation
DX: M51.16 Intervertebral disc disorders with radiculopathy, lumbar region (principal); M48.061 Spinal stenosis, lumbar region without neurogenic claudication
CPT/HCPCS: 62323; 99152; J0702; J1100; J2250